=== PATIENT | male | born 1945 | race Caucasian/White ===

== ENCOUNTER 2023-02-25 07:11 | Outpatient (RCR) | payer OTHER, SELFPAY ==
--- NOTE | 2022-12-09 14:32 | CR1_ITS ---
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
--- NOTE | 2023-01-09 12:35 | CR1_ITS ---
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
--- NOTE | 2023-02-06 10:41 | CR1_ITS ---
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
== END 2023-02-27 16:59 | disposition home or self-care (01) ==
LOC: CR 07:11
DX: J44.9 Chronic obstructive pulmonary disease, unspecified (principal)
CPT/HCPCS: 94625

== ENCOUNTER 2023-05-25 07:08 | Outpatient (RCR) | payer OTHER, SELFPAY ==
--- NOTE | 2023-03-09 13:49 | CR1_ITS ---
The 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
--- NOTE | 2023-04-07 12:52 | CR1_ITS ---
The [facility] Test Date: 2023-04-07 Pat Name: ROBERT BASSETT Department: Room: - Gender: Male Jackaroo: : 1945 Requested By: YANDY OQUENDO Order Number: [id number] Cliff MD: YANDY OQUENDO Interpretive Statements Session Date: Electronically Signed On 04-09-2023 6:58:44 EST by YANDY OQUENDO
--- NOTE | 2023-05-06 12:59 | CR1_ITS ---
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
--- NOTE | 2023-05-25 14:26 | PC.NURSE ---
Called to reach out to patient due to his approved time nearing the end and no recent visits from patient on record. Patient wishes to be discharged at this time and will reach out to his provider for a new order when he feels physically well enough to return to rehab.
== END 2023-05-26 11:38 | disposition home or self-care (01) ==
LOC: CR 07:08
DX: J44.9 Chronic obstructive pulmonary disease, unspecified (principal)

== ENCOUNTER 2023-10-13 17:49 | Emergency (ER) | payer OTHER, SELFPAY ==
[2023-10-13] VITALS (7 sets, daily range): BP systolic 102–134; BP diastolic 49–64; PULSE 79–88; TEMP 36.9; O2SAT 91–96; BMI 25.1
--- OUTSIDE RECORDS SUMMARY | 2023-10-13 18:00 | XMS_ITS | CCD ---
Author Organization [facility] Care Team Providers Care Erisa Attorney Name Role Phone DANIEL, DR TYSON Primary Care Unavailable REQUEST, NONE LISTED Attending Unavaila ble REQUEST, NONE LISTED Admitting Unavaila ble REQUEST, NONE LISTED Consulting Unavaila ble MISC, DR TYSON Primary Care Unavailable REQUEST, NONE LISTED Attending Unavaila ble REQUEST, NONE LISTED Admitting Unavaila ble REQUEST, DR PIERSON LISTED Consulting Unavaila ble MISC, DR TYSON Admitting Unavailable MISC, DR TYSON Primary Care Unavailable MISC, DR TYSON Consulting Unavailable MISC, DR TYSON Attending Unavailable Gregoria Truong Primary Care Physician GREGORIA TRUONG Attending Unavailable GREGORIA FISHER Attending Unavailable GREGORIA FISHER Attending Unavailable MARTINDov Attending Unavailable MARTIN, Dov Duron Attending Unavailable MARTINDov Attending Unavailable MARTINDov Attending Unavailable Allergies Allergy Classification Reported Allergen(s) Allergy Type Date of Onset Reaction(s) Facility Adrenergic Antagonists (1 source) tamsulosin; Translations: [tamsulosin] Drug Allergy Low blood pressure (disorder) [facility] (8 sources) tamsulosin; Translations: [tamsulosin] Drug Allergy Low blood pressure (disorder) [facility] Medications Current Medications Medication Drug Class(es) Dates Sig (Normalized) Sig (Original) acetaminophen 325 mg oral tablet (8 sources) Start: 11-22-2020 take 1 tablet by mouth four times daily as needed for pain acetaminophen 325 mg Tab 325 mg = 1 tab(s), Oral, QID, PRN as needed for pain, Refills(s) 0 Start Date: 11/22/20 Status: Ordered Albuterol (Eqv-ProAir HFA) 90 mcg/inh inhalation aerosol (7 sources) Start: 11-22-2020 take 2 puff(s) by inhalation four times daily as needed for wheezing Albuterol (Eqv-ProAir HFA) 90 mcg/inh inhalation aerosol 2 puff(s), Inhalation, QID as needed for wheezing, Refill(s) 0 Start Date: 11/22/20 Status: Ordered atorvastatin 40 mg oral tablet (8 sources) HMG-CoA Reductase Inhibitor Start: 07-09-2015 take 40 mg by mouth once daily at bedtime atorvastatin 40 mg, Oral, Once a day (at bedtime), Refills(s) 0, High cholesterol Start Date: 07/09/15 Status: Ordered Breztri Aerosphere inhalation aerosol (1 source) Start: 08-31-2023 take 1 puff(s) by inhalation twice daily Breztri Aerosphere inhalation aerosol puff(s), Inhalation, BID, Refill(s) 0 Start Date: 08/31/23 Status: Ordered busPIRone hydrochloride 10 mg oral tablet (8 sources) Start: 11-22-2020 take 2 tablets by mouth twice daily at mealtime for anxiety busPIRone 10 mg Tab 20 mg = 2 tab(s), Oral, BID, with food for anxiety, Refills(s) 0 Start Date: 11/22/20 Status: Ordered capsaicin 0.25 mg/ml topical cream (7 sources) Start: 11-22-2020 capsaicin topical 0.025% cream See Instructions, Refill(s) 0, apply 3 times a day to feet Start Date: 11/22/20 Status: Ordered Centrum Silver (8 sources) Start: 07-09-2015 Centrum Silver Oral, Daily, Refill(s) 0, Prophylaxis Start Date: 07/09/15 Status: Ordered cholecalciferol 0.025 mg oral tablet (8 sources) Vitamin D Start: 11-22-2020 take 1 tablet by mouth once daily cholecalciferol 1000 intl units oral tablet 75 mcg = 3 tab(s), Oral, Daily Start Date: 11/22/20 Status: Ordered Start: 11-22-2020 take 1 tablet by dorys th once daily cholecalciferol 1000 intl units oral tablet 75 mcg = 3 tab(s), Oral, Daily Start Date: 11/22/20 Status: Ordered docusate sodium 100 mg oral capsule (7 sources) Start: 11-26-2020 take 1 capsule by mouth twice daily docusate sodium 100 mg Cap 100 mg = 1 cap(s), Oral, BID, Refills(s) 0 Start Date: 11/26/20 Status: Ordered finasteride 5 mg oral tablet (8 sources) 5-alpha Reductase Inhibitor Start: 03-22-2021 take 1 mg by mouth once daily finasteride 5 mg Tab mg tab(s), Oral, Daily, Refills(s) 0 Start Date: 03/22/21 Status: Ordered gabapentin 600 mg oral tablet (7 sources) Anti-epileptic Agent Start: 07-09-2015 take 600 mg by mouth three times daily gabapentin 600 mg, Oral, TID, Refills(s) 0, Pain Start Date: 07/09/15 Status: Ordered guaiFENesin 400 mg oral tablet (8 sources) Start: 11-22-2020 take 1 tablet by mouth every four hours as needed for cough guaifenesin 400 mg oral tablet 400 mg = 1 tab(s), Oral, q4hr, PRN as needed for cough, Refills(s) 0 Start Date: 11/22/20 Status: Ordered levETIRAcetam 500 mg oral tablet (8 sources) Start: 11-22-2020 take 1 tablet by mouth once daily levetiracetam 500 mg Tab 500 mg = 1 tab(s), Oral, Daily, Refills(s) 0 Start Date: 11/22/20 Status: Ordered levoFLOXacin 500 mg oral tablet (1 source) Quinolone Antimicrobial Start: 07-22-2023 take 1 tablet by mouth once daily Levaquin 500 mg Tab 500 mg = 1 tab(s), Oral, Daily, # 30 tab(s), Refills(s) 0, Pharmacy: [facility]/pharmacy #[id number], 179, cm, 07/22/23 14:27:00 EDT, Height/Length Dosing, 78.3, kg, 07/22/23 14:27:00 EDT, Weight Dosing Start Date: 07/22/23 Status: Ordered Lidocaine (8 sources) Antiarrhythmic, Amide Local Anesthetic Start: 11-26-2020 lidocaine 5% patch TransDermal, Daily, Refill(s) 0 Start Date: 11/26/20 Status: Ordered melatonin 3 mg oral tablet (8 sources) Start: 11-22-2020 take 2 tablets by mouth once daily at bedtime as needed melatonin 3 mg Tab 6 mg = 2 tab(s), Oral, Once a day (at bedtime), PRN for insomnia, # 60 tab(s), Refills(s) 0 Start Date: 11/22/20 Status: Ordered methocarbamol 500 mg oral tablet (7 sources) Muscle Relaxant Start: 11-26-2020 methocarbamol 500 mg Tab 500 mg = 1 tab(s), Oral, q6hrFT, Refills(s) 0 Start Date: 11/26/20 Status: Ordered mometasone furoate 0.2 MG/ACTUAT Metered Dose Inhaler (7 sources) Corticosteroid Start: 03-22-2021 take 1 ug by inhalation twice daily mometasone 200 mcg/inh inhalation aerosol mcg, Inhalation, BID, Refills(s) 0 Start Date: 03/22/21 Status: Ordered montelukast 10 mg oral tablet (8 sources) Leukotriene Receptor Antagonist Start: 03-22-2021 take 1 mg by mouth once daily montelukast 10 mg Tab mg tab(s), Oral, Daily, Refills(s) 0 Start Date: 03/22/21 Status: Ordered mupirocin 0.02 mg/mg topical ointment (7 sources) RNA Synthetase Inhibitor Antibacterial Start: 11-22-2020 mupirocin Top 2% Oint See Instructions, Refill(s) 0, apply a thin film to leg scabs twice a day Start Date: 11/22/20 Status: Ordered primidone 50 mg oral tablet (7 sources) Anti-epileptic Agent Start: 11-22-2020 take 2 tablets by mouth once daily primidone 50 mg Tab 100 mg = 2 tab(s), Oral, Daily, Refills(s) 0 Start Date: 11/22/20 Status: Ordered sertraline 200 mg oral tablet (8 sources) Serotonin Reuptake Inhibitor Start: 07-09-2015 take 200 mg by mouth once daily sertraline 200 mg, Oral, Daily, Refills(s) 0, Depression Start Date: 07/09/15 Status: Ordered terazosin 1 mg oral capsule (1 source) alpha-Adrenergic Nacho Start: 03-22-2021 take 1 capsule by mouth once daily at bedtime terazosin 1 mg Cap mg cap(s), Oral, Once a day (at bedtime), Refills(s) 0 Start Date: 03/22/21 Status: Ordered urea 200 mg/ml topical cream (7 sources) Start: 11-22-2020 urea topical 20% cream See Instructions, Refill(s) 0, apply once daily to calloused areas on feet Start Date: 11/22/20 Status: Ordered vitamin B12 (8 sources) Vitamin B12 Start: 11-22-2020 take 1 tablet by mouth once daily cyanocobalamin 1000 mcg oral tablet 1,000 mcg = 1 tab(s), Oral, Daily, Refills(s) 0 Start Date: 11/22/20 Status: Ordered Start: 11-22-2020 take 1 tablet by dorys th once daily cyanocobalamin 1000 mcg oral tablet 1,000 mcg = 1 tab(s), Oral, Daily, Refills(s) 0 Start Date: 11/22/20 Status: Ordered Problems Problem Classification Problem Date Documented Date Episodic/Chronic Abdominal pain (2 sources) Inguinal pain 07-22-2023 Episodic Anxiety disorders (8 sources) Posttraumatic stress disorder 03-22-2021 Chronic Chronic obstructive pulmonary disease and bronchiectasis (9 sources) Chronic obstructive pulmonary disease, unspecified; Translations: [Pulmonary emphysema] Onset: 12-24-2020 03-22-2021 Chronic Genitourinary symptoms and ill-defined conditions (14 sources) Retention of urine; Translations: [Retention of urine, unspecified] Onset: 08-19-2021 Episodic Hyperplasia of prostate (14 sources) Benign prostatic hypertrophy with outflow obstruction; Translations: [Benign prostatic hyperplasia with lower urinary tract symptoms] Onset: 08-19-2021 Chronic Inflammatory conditions of male genital organs (10 sources) Prostatitis; Translations: [Inflammatory disease of prostate, unspecified] Onset: 08-19-2021 Episodic Other circulatory disease (4 sources) Hypotension, unspecified; Translations: [HYPOTENSION UNSPECIFIED] Onset: 12-19-2020 Episodic Other male genital disorders (1 source) H/O: male genital disorder; Translations: [Personal history of other diseases of male genital organs] Onset: 08-31-2023 Episodic Other male genital disorders (1 source) History of prostatitis 08-31-2023 Episodic Unclassified (8 sources) Finding of sensation of bladder 03-22-2021 Results Test Name Value Interpretation Reference Range Facil ity Ambulatory Visit Summaryon 0 08-31-2023 Ambulatory Visit Summary Ambulatory Visit Summary ROBERT TIM :1945 Visit Date:08/31/2023 Ambulatory Visit Instructions Your Diagnosis BPH with urinary obstruction History of prostatitis Urinary retention Your Care Team Attending Physician - Dov MARTIN MD Primary Care Physician - Gregoria Truong DO This Is Your Medications List finasteride (finasteride 5 mg Tab) Contact prescribing physician if questions or concerns acetaminophen (acetaminophen 325 mg Tab) atorvastatin budesonide/formoterol /glycopyrrolate (Breztri Aerosphere inhalation aerosol) busPIRone (busPIRone 10 mg Tab) cholecalciferol (cholecalciferol 1000 intl units oral tablet) cyanocobalamin (cyanocobalamin 1000 mcg oral tablet) guaifenesin (guaifenesin 400 mg oral tablet) levetiracetam (levetiracetam 500 mg Tab) lidocaine topical (lidocaine 5% patch) melatonin (melatonin 3 mg Tab) montelukast (montelukast 10 mg Tab) multivitamin with minerals (Centrum Silver) sertraline Procedures Performed Cataract, Colonoscopy, Procedure on back, Surgery. Discharge Vitals Temperature (Temporal Artery) 37 ?C Heart Rate (Peripheral) 62 Respiratory Rate 16 Blood Pressure 105/67 Height 179 cm Height 70 in Weight 75 kg Weight 165 lb BMI 23.41 What to do next Scheduled Follow-Up Appointments Thursday 1:45 PM EDT With: Dov MARTIN MD Where: [facility] Urology Office/Clinic Noteon 08-31-2023 Urology Office/Clinic Note Urology Office/Clinic Note Chief Complaint prostatitis, urinary retention HPI Staff F/u after prostatitis. Last seen in office 07/22/23 by ROMEO. Dx: prostatitis, BPH with obstruction, urinary retention. *Finasteride 5mg qd Given Levaquin 500mg qd x 30 days at prior OV. Pt is doing CIC 1x in the morning everyday Dysuria: no Incomplete bladder emptying: CIC 1x daily Hematuria: no Frequency: every couple of hours Urgency: yes Nocturia: every 2 hours Stream: weaker stream Leaking: yes Post void dripping: yes Wearing pads/ Depends: not regular just wears a brief when he is traveling Urge incontinence: no Stress incontinence: no Incontinence without Sensory Awareness: no Abdominal pain: no Flank pain: yes states it is muscular Sexual complaints: no History of Present Illness Tests reviewed: reviewed UA I have reviewed the previous health record information and history for this patient from JOHNATHON Peter. I have reviewed and verified the staff HPI to be accurate for this encounter. Review of Systems ROS - Provider Constitutional: denies weight loss, denies hot flashes. Eyes: denies eye problems. Gastrointestinal: denies nausea, denies vomiting. Cardiovascular: denies chest pain or angina. Integumentary: no dryness Musculoskeletal: denies musculoskeletal symptoms. ENMT: denies otolaryngeal symptoms. Respiratory: no shortness of breath. Heme/Lymph: denies easy bleeding tendency, denies easy bruising tendency. Psychiatric: no confusion, no anxiety. Genitourinary: See HPI. Physical Exam Vitals & Measurements T: 37 ?C(Temporal Artery) HR: 62(Peripheral) RR: 16 BP: 105/67 HT: 70 in HT: 179 cm WT: 75 kg WT: 165 lb BMI: 23.41 General Appearance: alert, no distress, well nourished, well developed male. Assessment/Plan 1. BPH with urinary obstruction (N40.1: Benign prostatic hyperplasia with lower urinary tract symptoms) Neurology consult 05/16/21 - Failed Flomax due to fainting and Terazosin due to hypotension in the past. Not to restart either alpha nacho. Taking Finasteride 5 mg qd. When pt voids on own, does not feel empty, has to void shortly after already voiding. Not very bothersome. -Cont Finasteride wo changes 2. History of prostatitis (Z87.438: Personal history of other diseases of male genital organs) Given Levaquin 500mg qd x 30 days at prior OV 07/22/23. Finished this abx course. No sample provided for UA today. Denies any pain or discomfort with urination. 3. Urinary retention (R33.9: Retention of urine, unspecified) PVR (cc): 07/22/23 - 94 Continues CIC once daily. Highest output volume 11oz. Recommended pt try CIC qod. States he will try this. -CIC qod. Record volumes week prior to appt. Follow-up With When Contact Information JOHNATHAN ALEGRIA, Dov Duron, URL [facility] [address], [place] [address] [phone] Additional Instructions: 3 mos Patient Education Benign Prostatic Hyperplasia I, Mai Sheppard, personally scribed for Dr. Martin on 08/31/2023 14:29:37. . Documentation recorded by the scribe, Mai Sheppard, accurately reflects the services(s) I performed and decisions made by me. Authenticated by Dr. Martin on 08/31/2023 14:31:41. 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 Medications acetaminophen 325 mg Tab, 325 mg= 1 tab(s), Oral, QID, PRN atorvastatin, 40 mg, Oral, Once a day (at bedtime) Breztri Aerosphere inhalation aerosol, Inhalation, BID busPIRone 10 mg Tab, 20 mg= 2 tab(s), Oral, BID Centrum Silver, Oral, Daily cholecalciferol 1000 intl units oral tablet, 75 mcg= 3 tab(s), Oral, Daily cyanocobalamin 1000 mcg oral tablet, 1000 mcg= 1 tab(s), Oral, Daily finasteride 5 mg Tab, Oral, Daily guaifenesin 400 mg oral tablet, 400 mg= 1 tab(s), Oral, q4hr, PRN levetiracetam 500 mg Tab, 500 mg= 1 tab(s), Oral, Daily lidocaine 5% patch, TransDermal, Daily melatonin 3 mg Tab, 6 mg= 2 tab(s), Oral, Once a day (at bedtime), PRN montelukast 10 mg Tab, Oral, Daily sertraline, 200 mg, Oral, Daily Allergies Flomax (Hypotension) Social History Alcohol - Denies Alcohol Use, 11/22/2020 Substance Abuse - Denies Substance Abuse, 11/22/2020 Tobacco - Denies Tobacco Use, 11/22/2020 Former smoker, quit more than 30 days ago Tobacco Use:. Never Smokeless Tobacco Use:. Household tobacco concerns: No. Yes, 08/31/2023 Family History Hypertension: Mother. Liver cancer: Father. Metastatic cancer: Father. Immunizations Vaccine Date Status influenza virus vaccine, inactivated 12/19/2021 Recorded SARS-CoV-2 (COVID-19) [id number] 12/19/2021 Recorde (more content not included)... Normal [facility] Comment on above: Result Comment: Elec tronically Signed By: Dov MARTIN MD\.br\Date and Time Signed: 08/31/23 14:31 EDT\.br\Electronically Co-Signed By: Mai Sheppard\.br\Date and Time Co-Signed: 08/31/23 14:30 EDT Ambulatory Visit Summaryon 0 07-22-2023 Ambulatory Visit Summary MEETA ROBERT :1945 Visit Date:07/22/2023 Ambulatory Visit Instructions Your Diagnosis Prostatitis BPH with urinary obstruction Urinary retention Your Care Team Attending Physician - GREGORIA FISHER PA-C Primary Care Physician - Gregoria Truong DO This Is Your Medications List levofloxacin (Levaquin 500 mg Tab) Contact prescribing physician if questions or concerns acetaminophen (acetaminophen 325 mg Tab) albuterol (Albuterol (Eqv-ProAir HFA) 90 mcg/inh inhalation aerosol) atorvastatin busPIRone (busPIRone 10 mg Tab) capsaicin topical (capsaicin topical 0.025% cream) cholecalciferol (cholecalciferol 1000 intl units oral tablet) cyanocobalamin (cyanocobalamin 1000 mcg oral tablet) docusate (docusate sodium 100 mg Cap) finasteride (finasteride 5 mg Tab) gabapentin guaifenesin (guaifenesin 400 mg oral tablet) levetiracetam (levetiracetam 500 mg Tab) lidocaine topical (lidocaine 5% patch) melatonin (melatonin 3 mg Tab) methocarbamol (methocarbamol 500 mg Tab) mometasone (mometasone 200 mcg/inh inhalation aerosol) montelukast (montelukast 10 mg Tab) multivitamin with minerals (Centrum Silver) mupirocin topical (mupirocin Top 2% Oint) primidone (primidone 50 mg Tab) sertraline urea topical (urea topical 20% cream) Procedures Performed Cataract, Colonoscopy, Procedure on back, Surgery. Discharge Vitals Temperature (Temporal Artery) 36.6 ?C Heart Rate (Peripheral) 75 Blood Pressure 110/61 Height 179 cm Height 70 in Weight 78.3 kg Weight 172.26 lb BMI 24.44 What to do next Scheduled Follow-Up Appointments Thursday 1:15 PM EDT With: JOHNATHAN ALEGRIA, Dov Duron Where: [facility] Ambulatory Visit Summary ROBERT TIM :1945 Visit Date:07/22/2023 Ambulatory Visit Instructions Your Diagnosis Prostatitis BPH with urinary obstruction Urinary retention Your Care Team Attending Physician - GREGORIA FISHER PA-C Primary Care Physician - Gregoria Truong DO This Is Your Medications List Contact prescribing physician if questions or concerns acetaminophen (acetaminophen 325 mg Tab) albuterol (Albuterol (Eqv-ProAir HFA) 90 mcg/inh inhalation aerosol) atorvastatin busPIRone (busPIRone 10 mg Tab) capsaicin topical (capsaicin topical 0.025% cream) cholecalciferol (cholecalciferol 1000 intl units oral tablet) cyanocobalamin (cyanocobalamin 1000 mcg oral tablet) docusate (docusate sodium 100 mg Cap) finasteride (finasteride 5 mg Tab) gabapentin guaifenesin (guaifenesin 400 mg oral tablet) levetiracetam (levetiracetam 500 mg Tab) lidocaine topical (lidocaine 5% patch) melatonin (melatonin 3 mg Tab) methocarbamol (methocarbamol 500 mg Tab) mometasone (mometasone 200 mcg/inh inhalation aerosol) montelukast (montelukast 10 mg Tab) multivitamin with minerals (Centrum Silver) mupirocin topical (mupirocin Top 2% Oint) primidone (primidone 50 mg Tab) sertraline urea topical (urea topical 20% cream) Procedures Performed Cataract, Colonoscopy, Procedure on back, Surgery. Discharge Vitals Temperature (Temporal Artery) 36.6 ?C Heart Rate (Peripheral) 75 Blood Pressure 110/61 Height 179 cm Height 70 in Weight 78.3 kg Weight 172.26 lb BMI 24.44 What to do next Scheduled Follow-Up Appointments Thursday 1:15 PM EDT With: JOHNATHAN ALEGRIA, Dov Duron Where: [facility] Alexys Normal [facility] Patient Educationon 07-22-19 Patient Education Infectious Disease Prostatitis Prostatitis is swelling or inflammation of the prostate gland, also called the prostate. This gland is about 1.5 inches wide and 1 inch high, and it is involved in making semen. The prostate is located below a man's bladder, in front of the rectum. There are four types of prostatitis: ? Chronic prostatitis (CP), also called chronic pelvic pain syndrome (CPPS). This is the most common type of prostatitis. It is associated with increased muscle tone in the area between the hip bones (pelvic area), around the prostate. This type is also known as a pelvic floor disorder. ? Chronic bacterial prostatitis. This type usually results from an acute bacterial infection in the prostate gland that keeps coming back or has not been treated properly. The symptoms are less severe than those caused by acute bacterial prostatitis, which lasts a shorter time. ? Asymptomatic inflammatory prostatitis. This type does not have symptoms and does not need treatment. This is diagnosed when tests are done for other disorders of the urinary tract or reproductive tract. ? Acute bacterial prostatitis. This type starts quickly and results from an acute bacterial infection in the prostate gland. It is usually associated with a bladder infection, high fever, and chills. This is the least common type of prostatitis. What are the causes? Bacterial prostatitis is caused by an infection from bacteria. Chronic nonbacterial prostatitis may be caused by: ? Factors related to the nervous system. This system includes thebrain, spinal cord, and nerves. ? An autoimmune response. This happens when the body's disease-fighting system attacks healthy tissue in the body by mistake. ? Psychological factors. These have to do with how the mind works. The causes of the other types of prostatitis are usually not known. What are the signs or symptoms? Symptoms of this condition depend on the type of prostatitis you have. Acute bacterial prostatitis Symptoms may include: ? Pain or burning during urination. ? Frequent and sudden urges to urinate. ? Trouble starting to urinate. ? Fever. ? Chills. ? Pain in your muscles or joints, lower back, or lower abdomen. Other types of prostatitis Symptoms may include: ? Sudden urges to urinate, or urinating often. ? Trouble starting to urinate. ? Weak urine stream. ? Dribbling after urination. ? Discharge coming from the penis. ? Pain in the testicles, the penis, or the tip of the penis. ? Pain in the area in front of the rectum and below the scrotum (perineum). ? Pain when ejaculating. How is this diagnosed? This condition may be diagnosed based on: ? A physical and medical exam. ? A digital rectal exam. For this, the health care provider may use a finger to feel the prostate. ? A urine test to check for bacteria. ? A semen sample or blood tests. ? Ultrasound. ? Urodynamic tests to check how your body handles urine. ? Cystoscopy to look inside your bladder or inside the part of your body that drains urine from the bladder (urethra). How is this treated? Treatment for this condition depends on the type of prostatitis. Treatment may involve: ? Medicines to relieve pain or inflammation, or to help relax your muscles. ? Physical therapy. ? Heat therapy. ? Biofeedback. These techniques help you control certain body functions. ? Relaxation exercises. ? Antibiotic medicine, if your condition is caused by bacteria. ? Sitz baths. These warm water baths help to relax your pelvic floor muscles, which helps to relieve pressure on the prostate. Follow these instructions at home: Medicines ? Take [id number] and prescription medicines only as told by your health care provider. ? If you were prescribed an antibiotic medicine, take it as told by your health care provider. Do not stop using the antibiotic even if you start to feel better. Managing pain and swelling ? Take sitz baths as directed by your health care provider. For a sitz bath, sit in warm water that is deep enough to cover your hips and buttocks. ? If directed, apply heat to the affected area as often as told by your health care provider. Use the heat source that your health care provider recommends, such as a moist heat pack or a heating pad. ? Place a towel between your skin and the heat source. ? Leave the heat on for 20?30 minutes. ? Remove the heat if your skin turns bright red. This is especially important if you are unable to feel pain, heat, or cold. You may have a greater risk of getting burned. General instructions ? Do exercises as told by your health care provider, if you were prescribed physical therapy, biofeedback, or relaxation exercises. ? Keep all follow-up visits as told by your health care provider. This is important. Where to find more information ? National [place] of [employer] and [employer]estive and Kidney Diseases: (more content not included)... Normal [facility] Urology Office/Clinic Noteon 07-22-2023 Urology Office/Clinic Note Chief Complaint Negative UA 07/16/23; not emptying bladder HPI Staff PRW pt Last seen in our office 12/15/22 DX: BPH & Urinary Retention *[facility] CIC qd at time of last encounter Pt stopped in our office 07/16/23 c/o groin pain. Suspected UTI. UA completely negative at that time. PVR: 94 ml Dysuria: denies Incomplete bladder emptying: yes, waits a min or two he goes again Hematuria: denies Frequency: denies Urgency: denies Nocturia: 2 x a night Stream: sometimes it's weak, and sometimes it's strong Leaking: yes Post void dripping: yes Wearing pads/ Depends: denies; unless he goes somewhere that he won't have a restroom available quick enough Urge incontinence: denies Stress incontinence: denies Incontinence without Sensory Awareness: denies Abdominal pain: discomfort; in groin area into the lower abdominal, bilateral but mostly on the the left Flank pain: denies Sexual complaints: _ History of Present Illness staff HPI reviewed and agree. Review of Systems PHQ Score Initial Depression Screen Score: 2 SCORE no fever, chills, malaise, myalgia. no rash/lesions. no chest pain, palpitations, or SOB. no abdominal pain, nausea, vomiting. no unilateral calf swelling, redness, pain Physical Exam Vitals & Measurements T: 36.6 ?C(Temporal Artery) HR: 75(Peripheral) BP: 110/61 HT: 70 in HT: 179 cm WT: 78.3 kg WT: 172.26 lb BMI: 24.44 General: nontoxic, NAD Mouth: moist mucosa Lungs: normal respiratory effort Cardio: regular rate, good distal perfusion Abdomen: nondistended, no suprapubic distention or tenderness, no CVA tenderness Neurologic: Grossly normal Skin: No rashes or suspicious lesions Assessment/Plan PRW pt. 1. Prostatitis (N41.9: Inflammatory disease of prostate, unspecified) Reports of pain/pressure/discomf ort under his scrotum that radiates into the testicles, bladder, and up into his low abd. Started a few weeks ago. Feels constricted. Pt stopped in our office 07/16/23 c/o the same. UA was neg at that time. Pt unable to give a sample today. Does have hx prostatitis and says this feels similar. No dysuria or burning. No urgency/frequency. No constipation. No pain with BMs. Denies injury to the area. The patient likely has prostatitis. He was advised about the different possible causes of bacterial and non-bacterial prostatitis. He needs to complete the course of prescribed antibiotics. He understands that the symptoms improve if he decreases his exercise and activity level. Anti-inflammatory medicines can also be helpful, as well as frequent ejaculations. Hot baths are also helpful in easing the discomfort. -Start Levaquin 500mg qd x 30 days (Cr 0.8 11/2022). Will avoid NSAIDs due to risk w age. Pt cannot tolerate alpha blockers. -Keep regular 6 mo follow up in August with PRW unless sx don't resolve 2. BPH with urinary obstruction (N40.1: Benign prostatic hyperplasia with lower urinary tract symptoms) Neurology consult 05/16/21 - Failed Flomax due to fainting and Terazosin due to hypotension in the past. Not to restart either alpha nacho. Taking Finasteride 5 mg QD. -Cont Finasteride wo [facility] 3. Urinary retention (R33.9: Retention of urine, unspecified) PVR (cc): 07/22/23 - 94 No difficulty passing cath w recent pain reported in #1. Continues CIC once daily. Follow-up With When Contact Information NATALIA DANIEL, GREGORIA Sahni, URL [address] [place] [address] Additional Instructions: Keep August appt Patient Education Prostatitis Documentation recorded by the jeffrey Cortes accurately reflects the services(s) I performed and decisions made by me. Authenticated by Gregoria Fisher PA-C on 07/22/2023 15:14:10. I, Kalee Cortes, personally scribed for Jacinta Fisher PA-C on 07/22/2023 14:52:22. . 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 Medications acetaminophen 325 mg Tab, 325 mg= 1 tab(s), Oral, QID, PRN Albuterol (Eqv-ProAir HFA) 90 mcg/inh inhalation aerosol, 2 puff(s), Inhalation, QID, PRN atorvastatin, 40 mg, Oral, Once a day (at bedtime) busPIRone 10 mg Tab, 20 mg= 2 tab(s), Oral, BID capsaicin topical 0.025% cream, See Instructions Centrum Silver, Oral, Daily cholecalciferol 1000 intl units oral tablet, 75 mcg= 3 tab(s), Oral, Daily cyanocobalamin 1000 mcg oral tablet, 1000 mcg= 1 tab(s), Oral, Daily docusate sodium 100 mg Cap, 100 mg= 1 cap(s), Oral, BID finasteride 5 mg Tab, Oral, Daily gabapentin, 600 mg, Oral, TID guaifenesin 400 mg oral tablet, 400 mg= 1 tab(s), Oral, q4hr, PRN levetiracet (more content not included)... Normal [facility] Comment on above: Result Comment: Elec tronically Signed By: GREGORIA FISHER PA-C.br\Date and Time Signed: 07/22/23 15:14 EDT\.br\Electronically Co-Signed By: Kalee Cortesbr\Date and Time Co-Signed: 07/22/23 14:52 EDT Physician Orderon 07-16-2023 Physician Order [id number] .[id number] Normal [facility] Retail - Clinical Noteon Retail - Clinical Note [id number] .[id number] Normal [facility] Patient Educationon 12-16-19 Patient Education Urology Clean Intermittent Catheterization, Male Clean intermittent catheterization (CIC) is a procedure to remove urine from the bladder by placing a small, flexible tube (catheter) into the bladder though the urethra. The urethra is a tube in the body that carries urine from the bladder out of the body. CIC may be done when: ? You cannot completely empty your bladder on your own. This may be due to a blockage in the bladder or urethra. ? Your bladder leaks urine. This may happen when the muscles or nerves near the bladder are not working normally, so the bladder overflows. Your health care provider will show you how to perform CIC and will help you to become comfortable performing this procedure at home. Your health care provider will also help you to get the home care supplies that are needed for this procedure. Supplies needed: ? Germ-free (sterile), water-based lubricant. ? A container for urine collection. You may also use the toilet to dispose of urine from the catheter. ? A catheter. Your health care provider will determine the best size for you. ? Use this catheter size: ? Clean gloves. ? Soap and water. ? Towel. How to perform this procedure: Most people need CIC at least 4 times per day to adequately empty the bladder. Your health care provider will tell you how often you should perform CIC. ? Number of times per day to perform CIC: To perform CIC, follow these steps: 1. Wash your hands with soap and water. If soap and water are not available, use hand town manager. 2. Clean your penis with soap and water. Dry the tip of your penis completely. 3. Prepare the supplies that you will use during the procedure. Open the catheter package and lubricant. 4. Get in a comfortable position. Possible positions include: ? Sitting on a toilet, a chair, or the edge of a bed. ? Standing near a toilet. ? Lying down with your head raised on pillows and your knees pointing to the ceiling. You may wish to place a waterproof mat or pad under you. 5. If you are using a urine collection container, position it between your legs. 6. Urinate, if you are able. 7. Put on gloves. 8. Apply lubricant to about 2 inches (5 cm) of the tip of the catheter. 9. Set the catheter down on a clean, dry surface within reach. 10. Gently stretch your penis out from your body. Pull back any skin that covers the end of your penis (foreskin). Clean the end of your penis with medicated sterile swabs as told by your health care provider. 11. Hold your penis upward at a 45?60 degree angle. This helps to straighten the urethra. 12. Slowly insert the lubricated catheter straight into your urethra until urine flows freely. This is usually about 6?8 inches (15?20 cm). 13. When urine starts to flow freely, insert the catheter 1 inch (3 cm) more. Allow urine to drain into the toilet or the urine collection container. 14. When urine stops flowing, slowly remove the catheter. 15. Note the color, amount, and odor of the urine. 16. Measure your urine and note the amount, if told by your health care provider. 17. Discard the urine in the toilet. 18. Clean your penis using soap and water. 19. Move the foreskin back in place, if applicable. 20. If you are using a single-use catheter, discard the catheter and supplies. 21. Wash your hands with soap and water. 22. If you are using a reusable catheter, follow package instructions about how to clean the catheter after each use. How often should I perform this procedure? ? Do CIC to empty your bladder every 4?6 hours or as often as told by your health care provider. ? If you have symptoms of too much urine in your bladder (overdistension) and you are not able to urinate, perform CIC. Symptoms of overdistension may include: ? Restlessness. ? Sweating or chills. ? Headache. ? Flushed or pale skin. ? Bloated lower abdomen. What are the risks? Generally, this is a safe procedure, however problems may occur, including: ? Infection. ? Injury to the urethra. ? Irritation of the urethra. Follow these instructions at home General instructions ? Drink enough fluid to keep your urine pale yellow. ? Dispose of a multiple use catheter when it becomes dry, brittle, or cloudy. This usually happens after you use the catheter for 1 week. ? Avoid caffeine. Caffeine may make you need to urinate more frequently and more urgently. ? When traveling, bring extra supplies with you in case of delays. Keep supplies with you in a place that you can access easily. If traveling by plane: ? Make sure that the lubricant in your carry-on bag is less than 3.4 ounces (100 mL). ? Use a single-use catheter. It may be difficult to clean a reusable catheter in a small bathroom. ? Take [id number]-jgn-telyuow and prescription medicines only as told by your he (more content not included)... Normal [facility] Urology Office/Clinic Noteon 12-15-2022 Urology Office/Clinic Note Chief Complaint 4m w/ Voiding Diary HPI Staff 77 yo male here for 4 month f/u. Previous Dx: BPH with obstruction, urinary retention. Pt was to decrease CIC from bid to qd. [facility] Pt unable to provide urine specimen in our office today. Pt is down to 1x/day. Residual totals average 7-11oz daily. When pt goes to void, states he has troubles with his stream starting if he does not pass gas or have BM prior. When he does pass gas or have BM, no difficulties getting stream started, and stronger stream. History of Present Illness Tests reviewed: reviewed UA I have reviewed the previous health record information and history for this patient from . I have reviewed and verified the staff HPI to be accurate for this encounter. There have been no associated fever, chills, flank pain, or blood in the urine. Denies any urinary infections since last encounter. Review of Systems PHQ Score Initial Depression Screen Score: 0 ROS - Provider Constitutional: denies weight loss, denies hot flashes. Eyes: denies eye problems. Gastrointestinal: denies nausea, denies vomiting. Cardiovascular: denies chest pain or angina. Integumentary: no dryness Musculoskeletal: denies musculoskeletal symptoms. ENMT: denies otolaryngeal symptoms. Respiratory: no shortness of breath. Heme/Lymph: denies easy bleeding tendency, denies easy bruising tendency. Psychiatric: no confusion, no anxiety. Genitourinary: See HPI. Physical Exam Vitals & Measurements HR: 68(Peripheral) RR: 16 BP: 128/79 HT: 70 in HT: 179 cm WT: 79 kg WT: 173.8 lb BMI: 24.66 General Appearance: alert, no distress, well nourished, well developed male. Assessment/Plan 1. BPH with urinary obstruction (N40.1: Benign prostatic hyperplasia with lower urinary tract symptoms) Neurology consult 05/16/21 - Failed Flomax due to fainting and Terazosin due to hypotension in the past. Not to restart either alpha nacho. No sample provided for UA today. Taking Finasteride 5 mg QD. -Cont Finasteride wo changes. [facility] 2. Urinary retention (R33.9: Retention of urine, unspecified) Pt is down to 1x/day. Residual totals average 7-11oz daily. The time he does this varies on what time he goes to bed at night, always when he first wakes up for the day. Feels he empties, will void once with a strong stream and then a second time with a weaker stream. When pt goes to void, states he has troubles with his stream starting if he does not pass gas or have BM prior. When he does pass gas or have BM, no difficulties getting stream started, and stronger stream. Advised pt that the volume is normal for how often he CIC a day. Pt states he does not feel the need to CIC more often through the day.Pt states that he does have some leaking, knows it is b/c he waits too long to go to the bathroom. Advised pt to call our office if he gets and infection. Follow up in 6 mos. All questions/concerns were discussed. Pt to call the office if he encounters any issues prior. Pt acknowledges understanding. -Continue to CIC QD and record residual totals. Follow-up With When Contact Information JOHNATHAN ALEGRIA, DONAL Joshua In 6 months [facility] [address], [place] [address]- Additional Instructions: Patient Education Clean Intermittent Catheterization, Male I, Pam Navarro , personally scribed for Dr. Martin on 12/15/2022 14:57:55. . Documentation recorded by the scribe, Pam Navarro, accurately reflects the services(s) I performed and decisions made by me. 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 Medications acetaminophen 325 mg Tab, 325 mg= 1 tab(s), Oral, QID, PRN Albuterol (Eqv-ProAir HFA) 90 mcg/inh inhalation aerosol, 2 puff(s), Inhalation, QID, PRN atorvastatin, 40 mg, Oral, Once a day (at bedtime) busPIRone 10 mg Tab, 20 mg= 2 tab(s), Oral, BID capsaicin topical 0.025% cream, See Instructions Centrum Silver, Oral, Daily cholecalciferol 1000 intl units oral tablet, 75 mcg= 3 tab(s), Oral, Daily cyanocobalamin 1000 mcg oral tablet, 1000 mcg= 1 tab(s), Oral, Daily docusate sodium 100 mg Cap, 100 mg= 1 cap(s), Oral, BID finasteride 5 mg Tab, Oral, Daily gabapentin, 600 mg, Oral, TID guaifenesin 400 mg oral tablet, 400 mg= 1 tab(s), Oral, q4hr, PRN levetiracetam 500 mg Tab, 500 mg= 1 tab(s), Oral, Daily lidocaine 5% patch, TransDermal, Daily melatonin 3 mg Tab, 6 mg= 2 tab(s), Oral, Once a day (at bedtime), PRN methocarbamol 500 mg Tab, 500 mg= 1 tab(s), Oral, q6hrFT mometasone 200 mcg/inh inhalation aerosol, Inhalation, BID montelukast 10 mg Tab, Oral, Daily mupiro (more content not included)... Normal [facility] Comment on above: Result Comment: Elec tronically Signed By: Dov MARTIN MD\.br\Date and Time Signed: 12/15/22 15:00 EDT\.br\Electronically Co-Signed By: Pam Navarro\.br\Date and Time Co-Signed: 12/15/22 14:58 EDT CBC AUTO DIFFon 12-19-2020 BASO # 0.1 103/ul Normal 0.0-0.1 [facility] Comment on above: Performed By: #### C BC #### [facility] [address] [address] [address] Julio Cesar Grijalva Basophils/100 WBC (Bld) 0.7 % Normal 0.2-2.0 [facility] Comment on above: Performed By: #### C BC #### [facility] [address] [address] [address] Julio Cesar Grijalva EO # 0.3 103/ul Normal 0.0-0.7 [facility] Comment on above: Performed By: #### C BC #### [facility] [address] [address] [address] Julio Cesar Grijalva Eosinophils/100 WBC (Bld) 3.4 % Normal 0.9-7.0 [facility] Comment on above: Performed By: #### C BC #### [facility] [address] [address] [address] Julio Cesar Grijalva Erythrocyte distribution width (RBC) [Ratio] 13.2 % Normal 11.0-15.0 [facility] Comment on above: Performed By: #### C BC #### [facility] [address] [address] [address] Julio Cesar Grijalva Hematocrit (Bld) [Volume fraction] 38.2 % Critically low 42.0-54.0 [facility] Comment on above: Performed By: #### C BC #### [facility] [address] [place] [address] Dr. Julio Cesar Grijalva Hemoglobin (Bld) [Mass/Vol] 12.4 g/dL Critically low 14.0-18.0 [facility] Comment on above: Performed By: #### C BC #### [facility] [address] [place] [address] Dr. Julio Cesar Grijalva IG # 0.02 10e3/ul Normal 0.00-0.03 [facility] Comment on above: Performed By: #### C BC #### [facility] [address] [place] [address] Dr. Julio Cesar Grijalva IG % 0.3 % Normal 0.0-0.5 [facility] Comment on above: Performed By: #### C BC #### [facility] [address] [place] [address] Dr. Julio Cesar Grijalva LYMPH # 1.1 103/ul Critically low 1.2-3.8 [facility] Comment on above: Performed By: #### C BC #### [facility] [address] [place] [address] Dr. Julio Cesar Grijalva Lymphocytes/100 WBC (Bld) 14.5 % Critically low 20.5-60.0 [facility] Comment on above: Performed By: #### C BC #### [facility] [address] [place] [address] Dr. Julio Cesar Grijalva MANUAL DIFF REQ NO Normal [facility] Comment on above: Performed By: #### C BC #### [facility] [address] [place] [address] Dr. Julio Cesar Grijalva MCH (RBC) [Entitic mass] 30.5 pg Normal 25.9-34.0 [facility] Comment on above: Performed By: #### C BC #### [facility] [address] [place] [address] Dr. Julio Cesar Grijalva MCHC (RBC) [Mass/Vol] 32.5 g/dL Normal 29.9-35.2 [facility] Comment on above: Performed By: #### C BC #### [facility] [address] [place] [address] Dr. Julio Cesar Grijalva MCV (RBC) [Entitic vol] 93.9 fL Normal 80.0-94.0 [facility] Comment on above: Performed By: #### C BC #### [facility] [address] [place] [address] Dr. Julio Cesar Grijalva MONO # 0.5 103/ul Normal 0.3-0.8 [facility] Comment on above: Performed By: #### C BC #### [facility] [address] [place] [address] Dr. Julio Cesar Grijalva Monocytes/100 WBC (Bld) 5.9 % Normal 1.7-12.0 [facility] Comment on above: Performed By: #### C BC #### [facility] [address] [place] [address] Dr. Julio Cesar Grijalva NEUT # 5.8 103/ul Normal 1.4-6.5 [facility] Comment on above: Performed By: #### C BC #### [facility] [address] [place] [address] Dr. Julio Cesar Grijalva Neutrophils/100 WBC (Bld) 75.2 % Critically high 43.0-75.0 [facility] Comment on above: Performed By: #### C BC #### [facility] [address] [place] [address] Dr. Julio Cesar Grijalva Platelet mean volume (Bld) [Entitic vol] 10.7 fL Normal 9.5-13.5 [facility] Comment on above: Performed By: #### C BC #### [facility] [address] [place] [address] Dr. Julio Cesar Grijalva PLT 237 103/ul Normal 150-450 [facility] Comment on above: Performed By: #### C BC #### [facility] [address] [place] [address] Dr. Julio Cesar Grijalva RBC 4.07 106/ul Critically low 4.70-6.[address] [facility] Comment on above: Performed By: #### C BC #### [facility] [address] [place] [address] Dr. Julio Cesar Grijalva WBC 7.7 103/ul Normal 4.0-11.0 [facility] Comment on above: Performed By: #### C BC #### [facility] [address] [place] [address] Dr. Julio Cesar Grijalva PROF 14(COMP METB)on 021 Albumin [Mass/Vol] 2.9 g/dL Critically low 3.5-5.0 [facility] Comment on above: Performed By: #### C MP #### [facility] [address] [place] [address] Dr. Julio Cesar Grijalva Albumin/Globulin [Mass ratio] 0.8 {ratio} Normal [facility] Comment on above: Performed By: #### C MP #### [facility] [address] [place] [address] Dr. Julio Cesar Grijalva ALP [Catalytic activity/Vol] 121 U/L Normal 38-126 [facility] Comment on above: Performed By: #### C MP #### [facility] [address] [place] [address] Dr. Julio Cesar Grijalva ALT [Catalytic activity/Vol] 18 U/L Critically low 21-72 [facility] Comment on above: Performed By: #### C MP #### [facility] [address] [place] [address] Dr. Julio Cesar Grijalva Anion gap [Moles/Vol] 9.8 mmol/L Normal [facility] Comment on above: Performed By: #### C MP #### [facility] [address] [place] [address] Dr. Julio Cesar Grijalva AST [Catalytic activity/Vol] 17 U/L Normal 17-59 [facility] Comment on above: Performed By: #### C MP #### [facility] [address] [place] [address] Dr. Julio Cesar Grijalva Bilirubin [Mass/Vol] 0.4 mg/dL Normal 0.2-1.3 [facility] Comment on above: Performed By: #### C MP #### [facility] [address] [place] [address] Dr. Julio Cesar Grijalva Calcium [Mass/Vol] 8.5 mg/dL Normal 8.4-10.2 [facility] Comment on above: Performed By: #### C MP #### [facility] [address] [address] [address] Julio Cesar Grijalva Chloride [Moles/Vol] 102 mmol/L Normal 98-107 [facility] Comment on above: Performed By: #### C MP #### [facility] [address] [address] [address] Julio Cesar Grijalva CO2 [Moles/Vol] 29.0 mmol/L Normal 22.0-30.0 [facility] Comment on above: Performed By: #### C MP #### [facility] [address] [place] [address] Dr. Julio Cesar Grijalva Creatinine [Mass/Vol] 0.73 mg/dL Normal 0.66-1.25 [facility] Comment on above: Performed By: #### C MP #### [facility] [address] [place] [address] Dr. Julio Cesar Grijalva EGFR-AF IRAQI >60 Normal >=60 [facility] Comment on above: Performed By: #### C MP #### [facility] [address] [place] [address] Dr. Julio Cesar Grijalva EGFR-NON AF IRAQI >60 Normal >=60 [facility] Comment on above: Performed By: #### C MP #### [facility] [address] [place] [address] Dr. Julio Cesar Grijalva Globulin (S) [Mass/Vol] 3.6 g/dL Normal [facility] Comment on above: Performed By: #### C MP #### [facility] [address] [place] [address] Dr. Julio Cesar Grijalva Glucose [Mass/Vol] 122 mg/dL Critically high 74-106 [facility] Comment on above: Performed By: #### C MP #### [facility] [address] [place] [address] Dr. Julio Cesar Grijalva Potassium [Moles/Vol] 3.8 mmol/L Normal 3.4-5.0 [facility] Comment on above: Performed By: #### C MP #### [facility] [address] [address] [address] Julio Cesar Grijalva Protein [Mass/Vol] 6.5 g/dL Normal 6.1-8.2 [facility] Comment on above: Performed By: #### C MP #### [facility] [address] [address] [address] Julio Cesar Grijalva Sodium [Moles/Vol] 137 mmol/L Normal 137-145 [facility] [facility] Comment on above: Performed By: #### C MP #### [facility] [address] [address] [address] Julio Cesar Grijalva Urea nitrogen [Mass/Vol] 10.0 mg/dL Normal 9.0-20.0 [facility] Comment on above: Performed By: #### C MP #### [facility] [address] [address] [address] Julio Cesar Grijalva Urea nitrogen/Creatinine [Mass ratio] 13.7 mg/mg Normal [facility] Comment on above: Performed By: #### C MP #### [facility] [address] [address] [address] Julio Cesar Grijalva Vital Signs Date Time Vital Sign Value Performing Clinician Facility 08-31-2023 13:16-0400 Blood Pressure Location Dov MARTIN [facility] 08-31-2023 13:16-0400 Body temperature 98.6 [degF] Dov MARTIN [facility] 08-31-2023 13:16-0400 Diastolic blood pressure 67 mm[Hg] Dov MARTIN [facility] 08-31-2023 13:16-0400 Heart rate 62 /min Dov MARTIN [facility] 08-31-2023 13:16-0400 Respiratory rate 16 /min Dov MARTIN [facility] 08-31-2023 13:16-0400 Systolic blood pressure 105 mm[Hg] Dov MARTIN [facility] 07-22-2023 14:19-0400 Blood Pressure Location GREGORIA FISHER [facility] 07-22-2023 14:19-0400 Body temperature 97.88 [degF] GREGORIA ADAIRRY [facility] 07-22-2023 14:19-0400 Diastolic blood pressure 61 mm[Hg] GREGORIA NATALIA [facility] 07-22-2023 14:19-0400 Heart rate 75 /min GREGORIA NATALIA [facility] 07-22-2023 14:19-0400 Systolic blood pressure 110 mm[Hg] GREGORIA NATALIA [facility] 12-15-2022 14:00-0400 Blood Pressure Location Dov MARTIN [facility] 12-15-2022 14:00-0400 Diastolic blood pressure 79 mm[Hg] Dov MARTIN [facility] 12-15-2022 14:00-0400 Heart rate 68 /min Dov MARTIN [facility] 12-15-2022 14:00-0400 Respiratory rate 16 /min Dov MARTIN [facility] 12-15-2022 14:00-0400 Systolic blood pressure 128 mm[Hg] Dov MARTIN [facility] 08-18-2022 14:47-0400 Blood Pressure Location Dov MARTIN [facility] 08-18-2022 14:47-0400 Diastolic blood pressure 65 mm[Hg] Dov MARTIN [facility] 08-18-2022 14:47-0400 Heart rate 65 /min Dov MARTIN [facility] 08-18-2022 14:47-0400 Respiratory rate 16 /min Dov MARTIN [facility] 08-18-2022 14:47-0400 Systolic blood pressure 105 mm[Hg] Odv MARTIN [facility] 08-19-2021 12:06-0400 Blood Pressure Location Dov MARTIN [facility] 08-19-2021 12:06-0400 Diastolic blood pressure 66 mm[Hg] Dov MARTIN [facility] 08-19-2021 12:06-0400 Heart rate 78 /min Dov MARTIN [facility] 08-19-2021 12:06-0400 Respiratory rate 16 /min Dov MARTIN [facility] 08-19-2021 12:06-0400 Systolic blood pressure 111 mm[Hg] Dov MARTIN [facility] Encounters Encounter Date Encounter Type Care Provider Facility Start: 12-14-2023 ambulatory Dov Pyle ty: [facility] Start: 08-31-2023 End: 08-31-2023 ambulatory Dov MARTIN Facility:[facility] Start: 08-31-2023 End: 08-31-2023 Patient encounter procedure Dov MARTIN [facility] Start: 07-22-2023 End: 07-22-2023 ambulatory GREGORIA FISHER Facility:[facility] Start: 07-22-2023 End: 07-22-2023 Patient encounter procedure GREGORIA FISHER [facility] Start: 07-16-2023 End: 07-16-2023 ambulatory GREGORIA FISHER Facility:[facility] Start: 07-16-2023 End: 07-16-2023 Patient encounter procedure GREGORIA ADAIRRY [facility] Start: 06-29-2023 End: 06-29-2023 ambulatory Dov MARTIN Facility:[facility] Start: 06-29-2023 End: 06-29-2023 Patient encounter procedure Dov MARTIN [facility] [employer] Start: 03-12-2023 End: 03-12-2023 ambulatory GREGORIA SIBLEYSOJeaneth Not Available Start: 12-15-2022 End: 12-15-2022 ambulatory Dov MARTIN Facility:[facility] Start: 12-15-2022 End: 12-15-2022 Patient encounter procedure Dov MARTIN [facility] [employer] Start: 08-18-2022 End: 08-18-2022 Patient encounter procedure Dov MARTIN [facility] Start: 02-17-2022 End: 02-17-2022 Patient encounter procedure Dov MARTIN [facility] Start: 08-19-2021 End: 08-19-2021 Patient encounter procedure Dov MARTIN [facility] Start: 12-19-2020 End: 12-19-[address] DOCTOR SANCHEZ Facility:[facility] Start: 05-29-2020 End: 05-30-[address] DOCTOR SANCHEZ Facility:[facility] Start: 05-07-2020 End: 05-08-[address] DOCTOR SANCHEZ Facility:[facility] Procedures Date Procedure Procedure Detail Performing Clinician Cataract (disorder) Dov MARTIN Colonoscopy Dov MARTIN Procedure on back Dov MARIE Surgery (qualifier value) Johnathon MARTIN Comment on above: To back and neck Immunizations Immunization Date Immunization Notes Care Provider Vesta willoughby 12-19-2021 influenza virus vacc ine, unspecified formulation Dov MARTIN [facility] 12-19-2021 SARS-CoV-2 (COVID-19 ) [id number] Dov MARTIN [facility] 01-03-2021 influenza virus vacc ine, unspecified formulation Dov MARTIN [facility] 01-03-2021 SARS-CoV-2 (COVID-19 ) mRNA BNT-162b2 vax Dov MARTIN [facility] 05-29-2020 SARS-CoV-2 (COVID-19 ) mRNA BNT-162b2 vax Dov MARTIN [facility] 05-07-2020 SARS-CoV-2 (COVID-19 ) mRNA BNT-162b2 vax Dov Do It Original [facility] 12-15-2018 influenza virus vacc ine, unspecified formulation Dov Do It Original [facility] 11-19-2017 influenza virus vacc ine, unspecified formulation Dov Do It Original [facility] 07-09-2017 tetanus toxoid, redu pancho diphtheria toxoid, and acellular pertussis vaccine, adsorbed Dov MARTIN [facility] 11-11-2016 influenza virus vacc ine, unspecified formulation Dov MARTIN [facility] 11-30-2014 pneumococcal conjuga te vaccine, 13 valent Dov MARTIN [facility] 11-01-2012 pneumococcal polysaccharide vaccine, 23 valent Dov MARTIN [facility] Payers Date Payer Category Payer Unknown [id number] 1960 Medicare [id number] 1960 Self-pay 1945 Unknown [id number] 2.16.84 [id number] 1945 Unknown [id number] 2.16.84 [id number] 1944 Unknown [id number] 2.16.8 [id number] 1944 Unknown [id number] 2.16.8 [id number] 1944 Unknown [id number] 2.16.8 [id number] 1944 Unknown [id number] 2.16.8 [id number] 1944 Unknown [id number] 2.16.8 [id number] 1944 Unknown [id number] 2.16.8 [id number] Unknown [id number] 2.16.84 [id number] Unknown [id number] 2.16.84 [id number] Social History Date Type Detail Facility Start: 08-19-2021 End: 08-31-2023 Tobacco smoking status Ex-smoker (finding) [facility] Sex Assigned At Male [facility] Tobacco smoking status Never [facility] Functional Status Date Assessment Result Facility 08-31-2023 Functional Status N/A [facility] 07-22-2023 Functional Status N/A [facility] 12-15-2022 Functional Status N/A [facility] 08-18-2022 Functional Status N/A [facility] 02-17-2022 Functional Status N/A [facility] 08-19-2021 Functional Status N/A [facility] Clinical Notes 08-19-2021 to 08-31-2023 Note Date & Type Note Facility 08-31-2023 Hospital Discharge instructions Patient Education 08/31/2023 14:28:34 Benign Prostatic Hyperplasia Benign Prostatic Hyperplasia Benign prostatic hyperplasia (BPH) is an enlarged prostate gland that is caused by the normal aging process. The prostate may get bigger as a man gets older. The condition is not caused by cancer. The prostate is a walnut-sized gland that is involved in the production of semen. It is located in front of the rectum and below the bladder. The bladder stores urine. The urethra carries stored urine out of the body. An enlarged prostate can press on the urethra. This can make it harder to pass urine. The buildup of urine in the bladder can cause infection. Back pressure and infection may progress to bladder damage and kidney (renal) failure. What are the causes? This condition is part of the normal aging process. However, not all men develop problems from this condition. If the prostate enlarges away from the urethra, urine flow will not be blocked. If it enlarges toward the urethra and compresses it, there will be problems passing urine. What increases the risk? This condition is more likely to develop in men older than 50 years. What are the signs or symptoms? Symptoms of this condition include: Getting up often during the night to urinate. Needing to urinate frequently during the day. Difficulty starting urine flow. Decrease in size and strength of your urine stream. Leaking (dribbling) after urinating. Inability to pass urine. This needs immediate treatment. Inability to completely empty your bladder. Pain when you pass urine. This is more common if there is also an infection. Urinary tract infection (UTI). How is this diagnosed? This condition is diagnosed based on your medical history, a physical exam, and your symptoms. Tests will also be done, such as: A post-void bladder scan. This measures any amount of urine that may remain in your bladder after you finish urinating. A digital rectal exam. In a rectal exam, your health care provider checks your prostate by putting a lubricated, gloved finger into your rectum to feel the back of your prostate gland. This exam detects the size of your gland and any abnormal lumps or growths. An exam of your urine (urinalysis). A prostate specific antigen (PSA) screening. This is a blood test used to screen for prostate cancer. An ultrasound. This test uses sound waves to electronically produce a picture of your prostate gland. Your health care provider may refer you to a specialist in kidney and prostate diseases (urologist). How is this treated? Once symptoms begin, your health care provider will monitor your condition (active surveillance or watchful waiting). Treatment for this condition will depend on the severity of your condition. Treatment may include: Observation and yearly exams. This may be the only treatment needed if your condition and symptoms are mild. Medicines to relieve your symptoms, including: ?Medicines to shrink the prostate. ?Medicines to relax the muscle of the prostate. Surgery in severe cases. Surgery may include: ?Prostatectomy. In this procedure, the prostate tissue is removed completely through an open incision or with a laparoscope or robotics. ?Transurethral resection of the prostate (TURP). In this procedure, a tool is inserted through the opening at the tip of the penis (urethra). It is used to cut away tissue of the inner core of the prostate. The pieces are removed through the same opening of the penis. This removes the blockage. ?Transurethral incision (TUIP). In this procedure, small cuts are made in the prostate. This lessens the prostate's pressure on the urethra. ?Transurethral microwave thermotherapy (TUMT). This procedure uses microwaves to create heat. The heat destroys and removes a small amount of prostate tissue. ?Transurethral needle ablation (TUNA). This procedure uses radio frequencies to destroy and remove a small amount of prostate tissue. ?Interstitial laser coagulation (ILC). This procedure uses a laser to destroy and remove a small amount of prostate tissue. ?Transurethral electrovaporization (TUVP). This procedure uses electrodes to destroy and remove a small amount of prostate tissue. ?Prostatic urethral lift. This procedure inserts an implant to push the lobes of the prostate away from the urethra. Follow these instructions at home: Take igco-cdb-epmetlm and prescription medicines only as told by your health care provider. Monitor your symptoms for any changes. Contact your health care provider with any changes. Avoid drinking large amounts of liquid before going to bed or out in public. Avoid or reduce how much caffeine or alcohol you drink. Give yourself time when you urinate. Keep all follow-up visits. This is important. Contact a health care provider if: You have unexplained back pain. Your symptoms do not get better with treatment. You develop side effects from the medicine you are taking. Your urine becomes very dark or has a bad smell. Your lower abdomen becomes distended and you have trouble passing urine. Get help right away if: You have a fever or chills. You suddenly cannot urinate. You feel light-headed or very dizzy, or you faint. There are large amounts of blood or clots in your urine. Your urinary problems become hard to manage. You develop moderate to severe low back or flank pain. The flank is the side of your body between the ribs and the hip. These symptoms may be an emergency. Get help right away. Call 911. Do not wait to see if the symptoms will go away. Do not drive yourself to the hospital. Summary Benign prostatic hyperplasia (BPH) is an enlarged prostate that is caused by the normal aging process. It is not caused by cancer. An enlarged prostate can press on the urethra. This can make it hard to pass urine. This condition is more likely to develop in men older than 50 years. Get help right away if you suddenly cannot urinate. This information is not intended to replace advice given to you by your health care provider. Make sure you discuss any questions you have with your health care provider. Document Revised: 09/04/2021 Document Reviewed: 09/04/2021 [employer] Patient Education 2022 [place]. Follow Up Care 06/30/2023 10:20:51 With:JOHNATHAN ALEGRIA, Dov Duron, URL Address: [facility] [address] [place] [address] [phone] When: Unknown [facility] 08-31-2023 Note Patient Education Urology Benign Prostatic Hyperplasia Benign prostatic hyperplasia (BPH) is an enlarged prostate gland that is caused by the normal aging process. The prostate may get bigger as a man gets older. The condition is not caused by cancer. The prostate is a walnut-sized gland that is involved in the production of semen. It is located in front of the rectum and below the bladder. The bladder stores urine. The urethra carries stored urine out of the body. An enlarged prostate can press on the urethra. This can make it harder to pass urine. The buildup of urine in the bladder can cause infection. Back pressure and infection may progress to bladder damage and kidney (renal) failure. What are the causes? This condition is part of the normal aging process. However, not all men develop problems from this condition. If the prostate enlarges away from the urethra, urine flow will not be blocked. If it enlarges toward the urethra and compresses it, there will be problems passing urine. What increases the risk? This condition is more likely to develop in men older than 50 years. What are the signs or symptoms? Symptoms of this condition include: ? Getting up often during the night to urinate. ? Needing to urinate frequently during the day. ? Difficulty starting urine flow. ? Decrease in size and strength of your urine stream. ? Leaking (dribbling) after urinating. ? Inability to pass urine. This needs immediate treatment. ? Inability to completely empty your bladder. ? Pain when you pass urine. This is more common if there is also an infection. ? Urinary tract infection (UTI). How is this diagnosed? This condition is diagnosed based on your medical history, a physical exam, and your symptoms. Tests will also be done, such as: ? A post-void bladder scan. This measures any amount of urine that may remain in your bladder after you finish urinating. ? A digital rectal exam. In a rectal exam, your health care provider checks your prostate by putting a lubricated, gloved finger into your rectum to feel the back of your prostate gland. This exam detects the size of your gland and any abnormal lumps or growths. ? An exam of your urine (urinalysis). ? A prostate specific antigen (PSA) screening. This is a blood test used to screen for prostate cancer. ? An ultrasound. This test uses sound waves to electronically produce a picture of your prostate gland. Your health care provider may refer you to a specialist in kidney and prostate diseases (urologist). How is this treated? Once symptoms begin, your health care provider will monitor your condition (active surveillance or watchful waiting). Treatment for this condition will depend on the severity of your condition. Treatment may include: ? Observation and yearly exams. This may be the only treatment needed if your condition and symptoms are mild. ? Medicines to relieve your symptoms, including: ? Medicines to shrink the prostate. ? Medicines to relax the muscle of the prostate. ? Surgery in severe cases. Surgery may include: ? Prostatectomy. In this procedure, the prostate tissue is removed completely through an open incision or with a laparoscope or robotics. ? Transurethral resection of the prostate (TURP). In this procedure, a tool is inserted through the opening at the tip of the penis (urethra). It is used to cut away tissue of the inner core of the prostate. The pieces are removed through the same opening of the penis. This removes the blockage. ? Transurethral incision (TUIP). In this procedure, small cuts are made in the prostate. This lessens the prostate's pressure on the urethra. ? Transurethral microwave thermotherapy (TUMT). This procedure uses microwaves to create heat. The heat destroys and removes a small amount of prostate tissue. ? Transurethral needle ablation (TUNA). This procedure uses radio frequencies to destroy and remove a small amount of prostate tissue. ? Interstitial laser coagulation (ILC). This procedure uses a laser to destroy and remove a small amount of prostate tissue. ? Transurethral electrovaporization (TUVP). This procedure uses electrodes to destroy and remove a small amount of prostate tissue. ? Prostatic urethral lift. This procedure inserts an implant to push the lobes of the prostate away from the urethra. Follow these instructions at home: ? Take ggfb-iah-sbanrrb and prescription medicines only as told by your health care provider. ? Monitor your symptoms for any changes. Contact your health care provider with any changes. ? Avoid drinking large amounts of liquid before going to bed or out in public. ? Avoid or reduce how much caffeine or alcohol you drink. ? Give yourself time when you urinate. ? Keep all follow-up visits. This is important. Contact a health care provider if: ? You have unexplained back pain. ? Your symptoms do not get better with treatment. ? You develop side effec (more content not included)... [facility] 07-22-2023 Hospital Discharge instructions Patient Education 07/22/2023 14:52:00 Prostatitis Prostatitis Prostatitis is swelling or inflammation of the prostate gland, also called the prostate. This gland is about 1.5 inches wide and 1 inch high, and it is involved in making semen. The prostate is located below a man's bladder, in front of the rectum. There are four types of prostatitis: Chronic prostatitis (CP), also called chronic pelvic pain syndrome (CPPS). This is the most common type of prostatitis. It is associated with increased muscle tone in the area between the hip bones (pelvic area), around the prostate. This type is also known as a pelvic floor disorder. Chronic bacterial prostatitis. This type usually results from an acute bacterial infection in the prostate gland that keeps coming back or has not been treated properly. The symptoms are less severe than those caused by acute bacterial prostatitis, which lasts a shorter time. Asymptomatic inflammatory prostatitis. This type does not have symptoms and does not need treatment. This is diagnosed when tests are done for other disorders of the urinary tract or reproductive tract. Acute bacterial prostatitis. This type starts quickly and results from an acute bacterial infection in the prostate gland. It is usually associated with a bladder infection, high fever, and chills. This is the least common type of prostatitis. What are the causes? Bacterial prostatitis is caused by an infection from bacteria. Chronic nonbacterial prostatitis may be caused by: Factors related to the nervous system. This system includes thebrain, spinal cord, and nerves. An autoimmune response. This happens when the body's disease-fighting system attacks healthy tissue in the body by mistake. Psychological factors. These have to do with how the mind works. The causes of the other types of prostatitis are usually not known. What are the signs or symptoms? Symptoms of this condition depend on the type of prostatitis you have. Acute bacterial prostatitis Symptoms may include: Pain or burning during urination. Frequent and sudden urges to urinate. Trouble starting to urinate. Fever. Chills. Pain in your muscles or joints, lower back, or lower abdomen. Other types of prostatitis Symptoms may include: Sudden urges to urinate, or urinating often. Trouble starting to urinate. Weak urine stream. Dribbling after urination. Discharge coming from the penis. Pain in the testicles, the penis, or the tip of the penis. Pain in the area in front of the rectum and below the scrotum (perineum). Pain when ejaculating. How is this diagnosed? This condition may be diagnosed based on: A physical and medical exam. A digital rectal exam. For this, the health care provider may use a finger to feel the prostate. A urine test to check for bacteria. A semen sample or blood tests. Ultrasound. Urodynamic tests to check how your body handles urine. Cystoscopy to look inside your bladder or inside the part of your body that drains urine from the bladder (urethra). How is this treated? Treatment for this condition depends on the type of prostatitis. Treatment may involve: Medicines to relieve pain or inflammation, or to help relax your muscles. Physical therapy. Heat therapy. Biofeedback. These techniques help you control certain body functions. Relaxation exercises. Antibiotic medicine, if your condition is caused by bacteria. Sitz baths. These warm water baths help to relax your pelvic floor muscles, which helps to relieve pressure on the prostate. Follow these instructions at home: Medicines Take iajs-jzr-wepnjad and prescription medicines only as told by your health care provider. If you were prescribed an antibiotic medicine, take it as told by your health care provider. Do not stop using the antibiotic even if you start to feel better. Managing pain and swelling Take sitz baths as directed by your health care provider. For a sitz bath, sit in warm water that is deep enough to cover your hips and buttocks. If directed, apply heat to the affected area as often as told by your health care provider. Use the heat source that your health care provider recommends, such as a moist heat pack or a heating pad. ?Place a towel between your skin and the heat source. ?Leave the heat on for 20 30 minutes. ?Remove the heat if your skin turns bright red. This is especially important if you are unable to feel pain, heat, or cold. You may have a greater risk of getting burned. General instructions Do exercises as told by your health care provider, if you were prescribed physical therapy, biofeedback, or relaxation exercises. Keep all follow-up visits as told by your health care provider. This is important. Where to find more information National [place] of Diabetes and Digestive and Kidney Diseases: https://www.niddk.nih.gov Contact a health care provider if: Your symptoms get worse. You have a fever. Get help right away if: You have chills. You feel light-headed or feel like you may faint. You cannot urinate. You have blood or blood clots in your urine. Summary Prostatitis is swelling or inflammation of the prostate gland. Treatment for this condition depends on the type of prostatitis. Take xeqx-jvj-gyxowpk and prescription medicines only as told by your health care provider. Get help right away of you have chills, feel light-headed, feel like you may faint, cannot urinate, or have blood or blood clots in your urine. This information is not intended to replace advice given to you by your health care provider. Make sure you discuss any questions you have with your health care provider. Document Revised: 03/23/2020 Document Reviewed: 03/23/2020 [employer] Patient Education 2022 [place]. Follow Up Care 07/21/2023 16:51:23 With:GREGORIA FISHER PA-C, URL Address: [address] [place] [address] When: Unknown [facility] 12-15-2022 Hospital Discharge instructions Follow Up Care 12/15/2022 15:00:39 With:JOHNATHAN ALEGRIA, Dov Duron, URL Address: [facility] [address], [place] [phone] When: Unknown [facility] 12-15-2022 Hospital Discharge instructions Patient Education 12/15/2022 14:55:52 Clean Intermittent Catheterization, Male Clean Intermittent Catheterization, Male Clean intermittent catheterization (CIC) is a procedure to remove urine from the bladder by placing a small, flexible tube (catheter) into the bladder though the urethra. The urethra is a tube in the body that carries urine from the bladder out of the body. CIC may be done when: You cannot completely empty your bladder on your own. This may be due to a blockage in the bladder or urethra. Your bladder leaks urine. This may happen when the muscles or nerves near the bladder are not working normally, so the bladder overflows. Your health care provider will show you how to perform CIC and will help you to become comfortable performing this procedure at home. Your health care provider will also help you to get the home care supplies that are needed for this procedure. Supplies needed: Germ-free (sterile), water-based lubricant. A container for urine collection. You may also use the toilet to dispose of urine from the catheter. A catheter. Your health care provider will determine the best size for you. ?Use this catheter size: Clean gloves. Soap and water. Towel. How to perform this procedure: Most people need CIC at least 4 times per day to adequately empty the bladder. Your health care provider will tell you how often you should perform CIC. Number of times per day to perform CIC: __ To perform CIC, follow these steps: 1.Wash your hands with soap and water. If soap and water are not available, use hand town manager. 2.Clean your penis with soap and water. Dry the tip of your penis completely. 3.Prepare the supplies that you will use during the procedure. Open the catheter package and lubricant. 4.Get in a comfortable position. Possible positions include: Sitting on a toilet, a chair, or the edge of a bed. Standing near a toilet. Lying down with your head raised on pillows and your knees pointing to the ceiling. You may wish to place a waterproof mat or pad under you. 5.If you are using a urine collection container, position it between your legs. 6.Urinate, if you are able. 7.Put on gloves. 8.Apply lubricant to about 2 inches (5 cm) of the tip of the catheter. 9.Set the catheter down on a clean, dry surface within reach. 10.Gently stretch your penis out from your body. Pull back any skin that covers the end of your penis (foreskin). Clean the end of your penis with medicated sterile swabs as told by your health care provider. 11.Hold your penis upward at a 45 60 degree angle. This helps to straighten the urethra. 12.Slowly insert the lubricated catheter straight into your urethra until urine flows freely. This is usually about 6 8 inches (15 20 cm). 13.When urine starts to flow freely, insert the catheter 1 inch (3 cm) more. Allow urine to drain into the toilet or the urine collection container. 14.When urine stops flowing, slowly remove the catheter. 15.Note the color, amount, and odor of the urine. 16.Measure your urine and note the amount, if told by your health care provider. 17.Discard the urine in the toilet. 18.Clean your penis using soap and water. 19.Move the foreskin back in place, if applicable. 20.If you are using a single-use catheter, discard the catheter and supplies. 21.Wash your hands with soap and water. 22.If you are using a reusable catheter, follow package instructions about how to clean the catheter after each use. How often should I perform this procedure? Do CIC to empty your bladder every 4 6 hours or as often as told by your health care provider. If you have symptoms of too much urine in your bladder (overdistension) and you are not able to urinate, perform CIC. Symptoms of overdistension may include: ?Restlessness. ?Sweating or chills. ?Headache. ?Flushed or pale skin. ?Bloated lower abdomen. What are the risks? Generally, this is a safe procedure, however problems may occur, including: Infection. Injury to the urethra. Irritation of the urethra. Follow these instructions at home General instructions Drink enough fluid to keep your urine pale yellow. Dispose of a multiple use catheter when it becomes dry, brittle, or cloudy. This usually happens after you use the catheter for 1 week. Avoid caffeine. Caffeine may make you need to urinate more frequently and more urgently. When traveling, bring extra supplies with you in case of delays. Keep supplies with you in a place that you can access easily. If traveling by plane: ?Make sure that the lubricant in your carry-on bag is less than 3.4 ounces (100 mL). ?Use a single-use catheter. It may be difficult to clean a reusable catheter in a small bathroom. Take jryz-tcv-msywuyo and prescription medicines only as told by your health care provider. Keep all follow-up visits as told by your health care provider. This is important. Contact a health care provider if you: Have difficulty performing CIC. Have urine leaking during CIC. Have: ?Dark or cloudy urine. ?Blood in your urine or in your catheter. ?A change in the smell of your urine or discharge. ?A burning feeling while you urinate. Feel nauseous or you vomit. Have pain in your abdomen, your back, or your sides below your ribs. Have swelling or redness around the opening of your urethra. Develop a rash or sores on your skin. Get help right away if you have: A fever. Symptoms that do not go away after 3 days. Symptoms that suddenly get worse. Severe pain. A decrease in the amount of urine that drains from your bladder. Summary Clean intermittent catheterization (CIC) is a procedure to remove urine from the bladder by placing a small, flexible tube (catheter) into the bladder though the urethra. Your health care provider will show you how to perform CIC and will help you to become comfortable performing this procedure at home. Most people need CIC at least 4 times per day to adequately empty the bladder. This information is not intended to replace advice given to you by your health care provider. Make sure you discuss any questions you have with your health care provider. Document Revised: 12/23/2021 Document Reviewed: 12/23/2021 [employer] Patient Education 2022 [place]. Follow Up Care 08/18/2022 15:53:30 With:JOHNATHAN ALEGRIA, Dov Duron, URL Address: [facility] [address] , [place] [address]- When:Within 6 Month(s) [facility] 08-18-2022 Hospital Discharge instructions Patient Education 08/18/2022 08:50:00 Benign Prostatic Hyperplasia Benign Prostatic Hyperplasia Benign prostatic hyperplasia (BPH) is an enlarged prostate gland that is caused by the normal aging process. The prostate may get bigger as a man gets older. The condition is not caused by cancer. The prostate is a walnut-sized gland that is involved in the production of semen. It is located in front of the rectum and below the bladder. The bladder stores urine. The urethra carries stored urine out of the body. An enlarged prostate can press on the urethra. This can make it harder to pass urine. The buildup of urine in the bladder can cause infection. Back pressure and infection may progress to bladder damage and kidney (renal) failure. What are the causes? This condition is part of the normal aging process. However, not all men develop problems from this condition. If the prostate enlarges away from the urethra, urine flow will not be blocked. If it enlarges toward the urethra and compresses it, there will be problems passing urine. What increases the risk? This condition is more likely to develop in men older than 50 years. What are the signs or symptoms? Symptoms of this condition include: Getting up often during the night to urinate. Needing to urinate frequently during the day. Difficulty starting urine flow. Decrease in size and strength of your urine stream. Leaking (dribbling) after urinating. Inability to pass urine. This needs immediate treatment. Inability to completely empty your bladder. Pain when you pass urine. This is more common if there is also an infection. Urinary tract infection (UTI). How is this diagnosed? This condition is diagnosed based on your medical history, a physical exam, and your symptoms. Tests will also be done, such as: A post-void bladder scan. This measures any amount of urine that may remain in your bladder after you finish urinating. A digital rectal exam. In a rectal exam, your health care provider checks your prostate by putting a lubricated, gloved finger into your rectum to feel the back of your prostate gland. This exam detects the size of your gland and any abnormal lumps or growths. An exam of your urine (urinalysis). A prostate specific antigen (PSA) screening. This is a blood test used to screen for prostate cancer. An ultrasound. This test uses sound waves to electronically produce a picture of your prostate gland. Your health care provider may refer you to a specialist in kidney and prostate diseases (urologist). How is this treated? Once symptoms begin, your health care provider will monitor your condition (active surveillance or watchful waiting). Treatment for this condition will depend on the severity of your condition. Treatment may include: Observation and yearly exams. This may be the only treatment needed if your condition and symptoms are mild. Medicines to relieve your symptoms, including: ?Medicines to shrink the prostate. ?Medicines to relax the muscle of the prostate. Surgery in severe cases. Surgery may include: ?Prostatectomy. In this procedure, the prostate tissue is removed completely through an open incision or with a laparoscope or robotics. ?Transurethral resection of the prostate (TURP). In this procedure, a tool is inserted through the opening at the tip of the penis (urethra). It is used to cut away tissue of the inner core of the prostate. The pieces are removed through the same opening of the penis. This removes the blockage. ?Transurethral incision (TUIP). In this procedure, small cuts are made in the prostate. This lessens the prostate's pressure on the urethra. ?Transurethral microwave thermotherapy (TUMT). This procedure uses microwaves to create heat. The heat destroys and removes a small amount of prostate tissue. ?Transurethral needle ablation (TUNA). This procedure uses radio frequencies to destroy and remove a small amount of prostate tissue. ?Interstitial laser coagulation (ILC). This procedure uses a laser to destroy and remove a small amount of prostate tissue. ?Transurethral electrovaporization (TUVP). This procedure uses electrodes to destroy and remove a small amount of prostate tissue. ?Prostatic urethral lift. This procedure inserts an implant to push the lobes of the prostate away from the urethra. Follow these instructions at home: Take dijl-lph-evxhfwv and prescription medicines only as told by your health care provider. Monitor your symptoms for any changes. Contact your health care provider with any changes. Avoid drinking large amounts of liquid before going to bed or out in public. Avoid or reduce how much caffeine or alcohol you drink. Give yourself time when you urinate. Keep all follow-up visits. This is important. Contact a health care provider if: You have unexplained back pain. Your symptoms do not get better with treatment. You develop side effects from the medicine you are taking. Your urine becomes very dark or has a bad smell. Your lower abdomen becomes distended and you have trouble passing urine. Get help right away if: You have a fever or chills. You suddenly cannot urinate. You feel light-headed or very dizzy, or you faint. There are large amounts of blood or clots in your urine. Your urinary problems become hard to manage. You develop moderate to severe low back or flank pain. The flank is the side of your body between the ribs and the hip. These symptoms may be an emergency. Get help right away. Call 911. Do not wait to see if the symptoms will go away. Do not drive yourself to the hospital. Summary Benign prostatic hyperplasia (BPH) is an enlarged prostate that is caused by the normal aging process. It is not caused by cancer. An enlarged prostate can press on the urethra. This can make it hard to pass urine. This condition is more likely to develop in men older than 50 years. Get help right away if you suddenly cannot urinate. This information is not intended to replace advice given to you by your health care provider. Make sure you discuss any questions you have with your health care provider. Document Revised: 09/04/2021 Document Reviewed: 09/04/2021 [employer] Patient Education 2022 [place]. Follow Up Care 02/17/2022 13:56:55 With:JOHNATHAN ALEGRIA, DONAL Joshua Address: [facility] [address] , [place] [address]- When: Unknown [facility] 02-17-2022 Hospital Discharge instructions Patient Education 02/17/2022 08:31:44 Benign Prostatic Hyperplasia Benign Prostatic Hyperplasia Benign prostatic hyperplasia (BPH) is an enlarged prostate gland that is caused by the normal aging process and not by cancer. The prostate is a walnut-sized gland that is involved in the production of semen. It is located in front of the rectum and below the bladder. The bladder stores urine and the urethra is the tube that carries the urine out of the body. The prostate may get bigger as a man gets older. An enlarged prostate can press on the urethra. This can make it harder to pass urine. The build-up of urine in the bladder can cause infection. Back pressure and infection may progress to bladder damage and kidney (renal) failure. What are the causes? This condition is part of a normal aging process. However, not all men develop problems from this condition. If the prostate enlarges away from the urethra, urine flow will not be blocked. If it enlarges toward the urethra and compresses it, there will be problems passing urine. What increases the risk? This condition is more likely to develop in men over the age of 50 years. What are the signs or symptoms? Symptoms of this condition include: Getting up often during the night to urinate. Needing to urinate frequently during the day. Difficulty starting urine flow. Decrease in size and strength of your urine stream. Leaking (dribbling) after urinating. Inability to pass urine. This needs immediate treatment. Inability to completely empty your bladder. Pain when you pass urine. This is more common if there is also an infection. Urinary tract infection (UTI). How is this diagnosed? This condition is diagnosed based on your medical history, a physical exam, and your symptoms. Tests will also be done, such as: A post-void bladder scan. This measures any amount of urine that may remain in your bladder after you finish urinating. A digital rectal exam. In a rectal exam, your health care provider checks your prostate by putting a lubricated, gloved finger into your rectum to feel the back of your prostate gland. This exam detects the size of your gland and any abnormal lumps or growths. An exam of your urine (urinalysis). A prostate specific antigen (PSA) screening. This is a blood test used to screen for prostate cancer. An ultrasound. This test uses sound waves to electronically produce a picture of your prostate gland. Your health care provider may refer you to a specialist in kidney and prostate diseases (urologist). How is this treated? Once symptoms begin, your health care provider will monitor your condition (active surveillance or watchful waiting). Treatment for this condition will depend on the severity of your condition. Treatment may include: Observation and yearly exams. This may be the only treatment needed if your condition and symptoms are mild. Medicines to relieve your symptoms, including: ?Medicines to shrink the prostate. ?Medicines to relax the muscle of the prostate. Surgery in severe cases. Surgery may include: ?Prostatectomy. In this procedure, the prostate tissue is removed completely through an open incision or with a laparoscope or robotics. ?Transurethral resection of the prostate (TURP). In this procedure, a tool is inserted through the opening at the tip of the penis (urethra). It is used to cut away tissue of the inner core of the prostate. The pieces are removed through the same opening of the penis. This removes the blockage. ?Transurethral incision (TUIP). In this procedure, small cuts are made in the prostate. This lessens the prostate's pressure on the urethra. ?Transurethral microwave thermotherapy (TUMT). This procedure uses microwaves to create heat. The heat destroys and removes a small amount of prostate tissue. ?Transurethral needle ablation (TUNA). This procedure uses radio frequencies to destroy and remove a small amount of prostate tissue. ?Interstitial laser coagulation (ILC). This procedure uses a laser to destroy and remove a small amount of prostate tissue. ?Transurethral electrovaporization (TUVP). This procedure uses electrodes to destroy and remove a small amount of prostate tissue. ?Prostatic urethral lift. This procedure inserts an implant to push the lobes of the prostate away from the urethra. Follow these instructions at home: Take uumx-cse-ykabsjt and prescription medicines only as told by your health care provider. Monitor your symptoms for any changes. Contact your health care provider with any changes. Avoid drinking large amounts of liquid before going to bed or out in public. Avoid or reduce how much caffeine or alcohol you drink. Give yourself time when you urinate. Keep all follow-up visits as told by your health care provider. This is important. Contact a health care provider if: You have unexplained back pain. Your symptoms do not get better with treatment. You develop side effects from the medicine you are taking. Your urine becomes very dark or has a bad smell. Your lower abdomen becomes distended and you have trouble passing your urine. Get help right away if: You have a fever or chills. You suddenly cannot urinate. You feel lightheaded, or very dizzy, or you faint. There are large amounts of blood or clots in the urine. Your urinary problems become hard to manage. You develop moderate to severe low back or flank pain. The flank is the side of your body between the ribs and the hip. These symptoms may represent a serious problem that is an emergency. Do not wait to see if the symptoms will go away. Get medical help right away. Call your local emergency services (911 in the [place] Do not drive yourself to the hospital. Summary Benign prostatic hyperplasia (BPH) is an enlarged prostate that is caused by the normal aging process and not by cancer. An enlarged prostate can press on the urethra. This can make it hard to pass urine. This condition is part of a normal aging process and is more likely to develop in men over the age of 50 years. Get help right away if you suddenly cannot urinate. This information is not intended to replace advice given to you by your health care provider. Make sure you discuss any questions you have with your health care provider. Document Released: 02/16/2006 Document Revised: 01/11/2019 Document Reviewed: 03/23/2017 [employer] Patient Education 2020 [place]. Follow Up Care 08/19/2021 12:49:49 With:JOHNATHAN ALEGRIA, DONAL Joshua Address: [facility] [address], [place] [address]- When: Unknown [facility] 08-19-2021 Hospital Discharge instructions Patient Education 08/19/2021 12:24:35 Acute Urinary Retention, Male, Aiqa-yr-Lack Acute Urinary Retention, Male Acute urinary retention means that you cannot pee (urinate) at all, or that you pee too little and your bladder is not emptied completely. If it is not treated, it can lead to kidney damage or other serious problems. Follow these instructions at home: Take wcsf-kve-qbrufbv and prescription medicines only as told by your doctor. Ask your doctor what medicines you should stay away from. Do not take any medicine unless your doctor says it is okay to do so. If you were sent home with a tube that drains the bladder (catheter), take care of it as told by your doctor. Drink enough fluid to keep your pee clear or pale yellow. If you were given an antibiotic, take it as told by your doctor. Do not stop taking the antibiotic even if you start to feel better. Do not use any products that contain nicotine or tobacco, such as cigarettes and e-cigarettes. If you need help quitting, ask your doctor. Watch for changes in your symptoms. Tell your doctor about them. If told, track changes in your blood pressure at home. Tell your doctor about them. Keep all follow-up visits as told by your doctor. This is important. Contact a doctor if: You have spasms or you leak pee when you have spasms. Get help right away if: You have chills or a fever. You have a tube that drains the bladder and: ?The tube stops draining pee. ?The tube falls out. You have blood in your pee. Summary Acute urinary retention means that you have problems peeing. It may mean that you cannot pee at all, or that you pee too little. If this condition is not treated, it can lead to kidney damage or other serious problems. If you were sent home with a tube that drains the bladder, take care of it as told by your doctor. Monitor any changes in your symptoms. Tell your doctor about any changes. This information is not intended to replace advice given to you by your health care provider. Make sure you discuss any questions you have with your health care provider. Document Released: 08/04/2008 Document Revised: 05/05/2019 Document Reviewed: 03/20/2017 [employer] Patient Education 2020 [place]. Follow Up Care 05/13/2021 12:38:46 With:Dov MARTIN MD, URL Address: [facility] [address], [place] [address]- [phone] When:02/18/2022 [facility] Evaluation + Plan note Future Appointments Appointment Date:02/17/2022 11:30:00 AM Scheduled Provider:Dov MARTIN MD Location:[facility] Appointment Type:URO Office Visit [facility] Evaluation + Plan note Future Appointments Appointment Date:08/18/2022 02:15:00 PM Scheduled Provider:Dov MARTIN MD Location:[facility] Appointment Type:URO Office Visit [facility] Evaluation + Plan note Future Appointments Appointment Date:12/15/2022 01:45:00 PM Scheduled Provider:Dov MARTIN MD Location:[facility] Appointment Type:URO Office Visit [facility] Evaluation + Plan note Future Appointments Appointment Date:06/29/2023 12:45:00 PM Scheduled Provider:Dov MARTIN MD Location:[facility] Appointment Type:URO Office Visit [facility] Evaluation + Plan note Future Appointments Appointment Date:08/31/2023 01:15:00 PM Scheduled Provider:Dov MARTIN MD Location:[facility] Appointment Type:URO Office Visit [facility] Evaluation + Plan note Future Appointments Appointment Date:12/14/2023 01:45:00 PM Scheduled Provider:Dov MARTIN MD Location:[facility] Appointment Type:URO Office Visit [facility] Hospital course Narrative No data available for this section [facility] Hospital Discharge instructions No data available for this section [facility] Progress note No data available for this section [facility] Summary Purpose Family History No Family History Records Found No data available for this section No Family History Records Found No data available for this section No data available for this section No data available for this section No data available for this section No Family History Records Found Advance Directives No Advanced Directives Records FoundNo Advanced Directives Records FoundNo Advanced Directives Records Found Additional Source Comments (unrecognized sect ion and content) No Status Records FoundNo Status Records FoundNo Status Records Found INFORMATION SOURCE (unrecogn ized section and content) DATE CREATED AUTHOR 01/05/2021 [facility] pital DATE CREATED AUTHOR AUTHOR'S ORGANIZ ATION 03/14/2023 [facility] EPIC DATE CREATED AUTHOR AUTHOR'S ORGANIZ ATION 09/01/2023 [facility] Care Team (unrecognized sect ion and content) Personnel Name: Gregoria Truong DO Address: [address] [place] [address] Personnel Name: Gregoria Truong DO Address: Address: [address] [place] [address] Personnel Name: Gregoria Truong DO Address: Address: [address] [place] [address] Personnel Name: Gregoria Truong DO Address: Address: [address] [place] [address] Personnel Name: Gregoria Truong DO Address: Address: [address] [place] [address] Personnel Name: Gregoria Truong DO Address: Address: [address] [place] [address] Personnel Name: Gregoria Truong DO Address: Address: [address] [place] [address] Personnel Name: Gregoria Truong DO Address: Address: [address] [place] [address] FOR RECORDS PERTAINING TO PATIENTS WHO ARE OR HAVE BEEN ENROLLED IN A CHEMICAL DEPENDENCY/SUBSTANCEABUSE PROGRAM, SOME INFORMATION MAY BE OMITTED. This clinical summary was aggregated from multiple sources. Caution should be exercised in using it in the provision of clinical care. This summary normalizes information from multiple sources, and as a consequence, information in this document may materially change the coding, format and clinical context of patient data. In addition, data may be omitted in some cases. CLINICAL DECISIONS SHOULD BE BASED ON THE PRIMARY CLINICAL RECORDS. [facility] [employer] [facility]. provides no warranty or guarantee of the accuracy or completeness of information in this document.
--- NOTE | 2023-10-13 18:02 | ECG_ITS ---
The 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
--- NOTE | 2023-10-13 18:02 | XR_ITS ---
The [address] [address] Patient Name: ROBERT BASSETT MRN: [id number] date: 1945 Sex: M Assigned Patient Location: ER Current Patient Location: Accession/Order Number: [id number] Exam Date: 10/13/2023 18:12 Report Date: 10/13/2023 19:12 At the request of: ALBERT PUTNAM Procedure: XR chest 1V XR chest 1V 10/13/2023 6:12 PM EDT CLINICAL INDICATION: Shortness of breath COMPARISON: None. TECHNIQUE: Portable semiupright AP view of the chest. FINDINGS: There are no tubes or implants noted. The cardiomediastinal silhouette and pulmonary vasculature are within normal limits. No focal parenchymal opacities. Right costophrenic angle is incompletely imaged. No pneumothorax or pleural effusion in the [id number]. No displaced rib fractures. Osseous structures demonstrate degenerative changes. Soft tissues are grossly normal. XR/XR chest 1V IMPRESSION: Right costophrenic angle is noted to be incompletely imaged. No acute cardiopulmonary abnormality within the limitations of the study. Electronically authenticated by: ION WONG Date: 10/13/2023 19:12
--- NOTE | 2023-10-13 18:04 | ED_ITS ---
HPI - SOB/Dyspnea General Chief Complaint: Shortness of Breath/Dyspnea Stated Complaint: Shortness of Breath Time Seen by Provider: 10/13/23 17:57 Source: patient Mode of arrival: walk-in Limitations: no limitations History of Present Illness HPI Narrative: 78-year-old male presents for shortness of breath. It started today when he got home from taking his to a medical appointment. He does not have chest pain or fever and he always coughs up a small amount of white phlegm. He used his inhaler but he did not feel much better so he came in here. Related Data Home Medications ?Medication ?Instructions ?Recorded ?Confirmed atorvastatin 40 mg tablet 40 mg PO QPM 10/13/23 10/13/23 budesonide 160 mcg-glycopyr 9 2 inh inhalation BID 10/13/23 10/13/23 mcg-formot 4.8 mcg/actuation HFA inhaler (Breztri Aerosphere) buspirone 15 mg tablet 30 mg PO BID 10/13/23 10/13/23 cholecalciferol (vitamin D3) 25 3,000 unit PO DAILY 10/13/23 10/13/23 mcg (1,000 unit) capsule cyanocobalamin (vitamin B-12) 1,000 mcg PO DAILY 10/13/23 10/13/23 1,000 mcg capsule finasteride 5 mg tablet 5 mg PO DAILY 10/13/23 10/13/23 levetiracetam 500 mg tablet 500 mg PO DAILY 10/13/23 10/13/23 (Keppra) montelukast 10 mg tablet 10 mg PO QPM 10/13/23 10/13/23 sertraline 100 mg tablet 200 mg PO DAILY 10/13/23 10/13/23 Allergies Allergy/AdvReac Type Severity Reaction Status Date / Time No Known Drug Allergies Allergy Verified 10/13/23 17:54 Review of Systems ROS Narrative A ten point review of systems is negative except as noted above. Exam Narrative Exam Narrative: Nurses note and vital signs reviewed and patient is not hypoxic. General: The patient appears in no acute respiratory distress Skin: Warm, dry, no pallor noted. There is no rash noted. Head: Normocephalic, atraumatic Eye: Normal conjunctiva, no drainage Ears, Nose, Mouth, and Throat: oral mucosa is moist. Nares patent. Cardiovascular: Regular Rate and Rhythm Respiratory: Breath sounds are equal with good air movement. No rhonchi noted. Back: non-tender GI: Soft and nontender Musculoskeletal: The patient has no evidence of calf tenderness, no pitting edema, symmetrical pulses noted bilaterally Neurological: A&O x4, normal speech Psychiatric: Cooperative Constitutional Vital Signs, click to edit/add: Last Vital Signs Temp 98.4 F 10/13/23 17:55 Pulse 86 10/13/23 17:55 Resp 20 10/13/23 17:55 BP 134/64 10/13/23 17:55 Pulse Ox 96 10/13/23 17:55 O2 Del Method Room Air 10/13/23 17:55 Course Vital Signs Vital signs: Vital Signs Temperature 98.4 F 10/13/23 17:55 Pulse Rate 86 10/13/23 17:55 Respiratory Rate 20 10/13/23 17:55 Blood Pressure 134/64 10/13/23 17:55 Pulse Oximetry 96 10/13/23 17:55 Oxygen Delivery Method Room Air 10/13/23 17:55 Temperature 98.4 F 10/13/23 17:55 Pulse Rate 86 10/13/23 17:55 Respiratory Rate 10/13/23 17:55 Blood Pressure 134/64 10/13/23 17:55 Pulse Oximetry 96 10/13/23 17:55 Oxygen Delivery Method Room Air 10/13/23 17:55 Discharge Plan Discharge Chief Complaint: Shortness of Breath/Dyspnea Print Language: Hungarian Referrals: Physician,Non-Staff, MD [Primary Care Provider] - 1 week
[2023-10-13] MEDS: ALBUTEROL SULFATE 2.5 MG/3 ML VIAL NEB IH (18:15)
[2023-10-13 18:30] LABS: Internal Control Within Normal Limits; SARS-CoV-2 Ag NEGATIVE (NEGATIVE)
--- NOTE | 2023-10-13 19:29 | ED.SOB1 ---
HPI - SOB/Dyspnea General Chief Complaint: Shortness of Breath/Dyspnea Stated Complaint: Shortness of Breath Time Seen by Provider: 10/13/23 17:57 Source: patient Mode of arrival: walk-in Limitations: no limitations History of Present Illness HPI Narrative: This 78-year-old man with a history of COPD who is a former smoker was signed out to me at shift change pending x-ray, COVID-19 test and reevaluation. He presents to the emergency department for shortness of breath after being outside with his running errands today. Patient was seen and evaluated. He is resting comfortably on the stretcher, his pulse ox is 93 to 94% on room air. He states he is feeling much better and request to be discharged home. He denies any chest pain or dizziness. He has no abdominal pain or back pain. He has not had a fever or cough. His EKG is reviewed and is negative for acute findings. COVID-19 test is negative and chest x-ray was reviewed by radiology with no acute findings. He declines an IV or any additional testing. He has inhalers at home that he uses. He was encouraged return the emergency department for worsening shortness of breath, chest pain fever or any concerns. Related Data Home Medications ?Medication ?Instructions ?Recorded ?Confirmed atorvastatin 40 mg tablet 40 mg PO QPM 10/13/23 10/13/23 budesonide 160 mcg-glycopyr 9 2 inh inhalation BID 10/13/23 10/13/23 mcg-formot 4.8 mcg/actuation HFA inhaler (Breztri Aerosphere) buspirone 15 mg tablet 30 mg PO BID 10/13/23 10/13/23 cholecalciferol (vitamin D3) 25 3,000 unit PO DAILY 10/13/23 10/13/23 mcg (1,000 unit) capsule cyanocobalamin (vitamin B-12) 1,000 mcg PO DAILY 10/13/23 10/13/23 1,000 mcg capsule finasteride 5 mg tablet 5 mg PO DAILY 10/13/23 10/13/23 levetiracetam 500 mg tablet 500 mg PO DAILY 10/13/23 10/13/23 (Keppra) montelukast 10 mg tablet 10 mg PO QPM 10/13/23 10/13/23 sertraline 100 mg tablet 200 mg PO DAILY 10/13/23 10/13/23 Allergies Allergy/AdvReac Type Severity Reaction Status Date / Time No Known Drug Allergies Allergy Verified 10/13/23 17:54 Exam Constitutional Vital Signs, click to edit/add: Last Vital Signs Temp 98.4 F 10/13/23 17:55 Pulse 83 10/13/23 19:02 Resp 18 10/13/23 19:02 BP 102/49 10/13/23 19:02 Pulse Ox 94 L 10/13/23 19:02 O2 Del Method Room Air 10/13/23 18:17 Course Vital Signs Vital signs: Vital Signs Temperature 98.4 F 10/13/23 17:55 Pulse Rate 86 10/13/23 17:55 Respiratory Rate 20 10/13/23 17:55 Blood Pressure 134/64 10/13/23 17:55 Pulse Oximetry 96 10/13/23 17:55 Oxygen Delivery Method Room Air 10/13/23 17:55 Temperature 98.4 F 10/13/23 17:55 Pulse Rate 83 10/13/23 19:02 Respiratory Rate 18 10/13/23 19:02 Blood Pressure 102/49 10/13/23 19:02 Pulse Oximetry 94 L 10/13/23 19:02 Oxygen Delivery Method Room Air 10/13/23 18:17 MDM - SOB/Dyspnea Lab Data Labs: Lab Results 10/13/23 Range/Units 18:15 SARS-CoV-2 Ag (CV2AG) Negative (NEGATIVE) ECG Data Attestation: I personally reviewed and interpreted this ECG as follows: (Sinus rhythm at 83 bpm, short [place] interval, nonspecific ST changes, occasional PVCs, no acute ST segment elevation or T wave inversion) Discharge Plan Discharge Stand Alone Forms: Portal Instructions Chief Complaint: Shortness of Breath/Dyspnea Clinical Impression: COPD (chronic obstructive pulmonary disease), Breath shortness Patient Disposition: Home, Self-Care Time of Disposition Decision: 19:28 Condition: Good Prescriptions / Home Meds: No Action atorvastatin 40 mg tablet 40 mg PO QPM Dominic Aerosphere 160-9-4.8 mcg/actuation HFA aerosol inhaler 2 inh inhalation BID buspirone 15 mg tablet 30 mg PO BID cholecalciferol (vitamin D3) 25 mcg (1,000 unit) capsule 3,000 unit PO DAILY cyanocobalamin (vitamin B-12) 1,000 mcg capsule 1,000 mcg PO DAILY finasteride 5 mg tablet 5 mg PO DAILY levetiracetam [Keppra] 500 mg tablet 500 mg PO DAILY montelukast 10 mg tablet 10 mg PO QPM sertraline 100 mg tablet 200 mg PO DAILY Print Language: Luxembourgish Instructions: COPD (Chronic Obstructive Pulmonary Disease) (ED), Shortness of Breath (ED) Referrals: Physician,Non-Staff, MD [Primary Care Provider] - 1 week Discharge Date/Time: 10/13/23 19:34
== END 2023-10-13 19:34 | disposition home or self-care (01) ==
PROVIDERS: Emergency Medicine; Emergency Provider Emergency Medicine
DX: J44.9 Chronic obstructive pulmonary disease, unspecified (principal); R06.02 Shortness of breath; Z20.822 Contact with and (suspected) exposure to COVID-19; Z87.891 Personal history of nicotine dependence
CPT/HCPCS: 71045; 87811; 93005; 94640; 99285

== ENCOUNTER 2023-12-15 07:15 | Outpatient (RCR) | payer OTHER, SELFPAY ==
--- NOTE | 2023-07-07 13:44 | CR1_ITS ---
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
--- NOTE | 2023-07-15 11:16 | CR1_ITS ---
The [facility] Test Date: 2023-07-15 Pat Name: ROBERT BASSETT Department: Room: - Gender: Male Specialty Finishing Utility Person: : 1945 Requested By: YANDY OQUENDO Order Number: [id number] Cliff MD: YANDY OQUENDO Interpretive Statements Session Date: Electronically Signed On 07-15-2023 22:58:21 EDT by YANDY OQUENDO
--- NOTE | 2023-08-12 | CR1_ITS ---
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
--- NOTE | 2023-09-01 07:04 | PC.NURSE ---
Outreach letter due to lack of attendance and copy of attendance policy mailed to patient on this date. Patient has been outreached by phone prior to this letter to help facilitate their attendance in cardiac rehab.
--- NOTE | 2023-09-11 11:00 | CR1_ITS ---
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
--- NOTE | 2023-10-12 07:23 | CR1_ITS ---
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
--- NOTE | 2023-11-11 09:09 | CR1_ITS ---
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
--- NOTE | 2023-12-10 07:24 | CR1_ITS ---
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
--- NOTE | 2023-12-15 15:53 | CR1_ITS ---
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
== END 2023-12-16 12:49 | disposition home or self-care (01) ==
LOC: CR 07:15
PROVIDERS: Visit Provider Internal Medicine
DX: J44.9 Chronic obstructive pulmonary disease, unspecified (principal)
CPT/HCPCS: 94625

== ENCOUNTER 2024-08-10 12:18 | Outpatient (OUT) | payer OTHER, SELFPAY ==
--- NOTE | 2024-08-10 12:26 | MR_ITS ---
The [address] [address] Patient Name: ROBERT TIM MRN: [id number] date: 1945 Sex: M Assigned Patient Location: MRI Current Patient Location: MRI Accession/Order Number: [id number] Exam Date: 08/10/2024 14:57 Report Date: 08/10/2024 15:02 At the request of: DIGNA ARANGO Procedure: MR lumbar spine wo con MRI Lumbar Spine withoutcontrast TECHNIQUE: Multiplanar T1 and T2-weighted imaging of lumbar spine obtained without contrast. HISTORY: Chronic lumbar pain with radiculopathy. Radiation into the right left leg. 30 years duration. COMPARISON: None The last fully segmented vertebral pair is operationally defined as L5/S1. POST SURGERY CHANGES: None BONE MARROW INFILTRATION: None BONE MARROW EDEMA: None BONY ALIGNMENT: Adequate bony alignment identified. LUMBAR FRACTURE: None BONY LESIONS: None KIDNEYS: No hydronephrosis is identified. Bilateral renal cysts AORTA: No aortic aneurysm is seen. CONUS MEDULLARIS : The distal spinal cord is in adequate position without abnormality. Additional findings CONJOINED NERVE ROOT: None Lower thoracic level: Unremarkable L1-2 :Mild disc space narrowing. Mild diffuse disc bulge. Mild central canal stenosis. Posterior element hypertrophy. Mild bilateral neural foraminal narrowing L2-3: Mild disc space narrowing. Diffuse disc bulge. Moderate central canal stenosis. Posterior element hypertrophy. Moderate bilateral neural foraminal narrowing L3-4: Mild disc space narrowing. Diffuse disc bulge. Mild central canal stenosis. Posterior element hypertrophy. Moderate bilateral neural foraminal narrowing L4-5: Marked disc space narrowing. Degenerative endplate changes. Diffuse disc bulge midline disc protrusion. Mild central canal stenosis. Posterior element hypertrophy. Moderate bilateral neural foraminal narrowing greater on the right L5-S1: Disc space narrowing. Diffuse disc bulge. Mild central canal stenosis. Posterior element hypertrophy. Patent neural foramen MR/MR lumbar spine wo con IMPRESSION: Multilevel discovertebral degenerative changes greatest at the L4-5 level. Multilevel central canal stenosis greatest at the L2-3 level. Pre-MRI plain film assessment: None Impression dictated by: Erickson Mullins M.D. 08/10/2024 3:02 PM Dictation Location: [place] [address] Electronically authenticated by: [id number] Y Date: 08/10/2024 15:02
--- OUTSIDE RECORDS SUMMARY | 2024-08-10 12:30 | XMS_ITS | CCD ---
Author Organization [facility] Care Team Providers Care Blue Prints Trimmer Name Role Phone RADHAC, DR TYSON Primary Care Unavailable REQUEST, NONE [...] Attending Unavailable Gregoria Truong Primary Care Physician [phone] GREGORIA TRUONG Attending Unavailable MD Gregoria Truong Primary Care Provider MD Jyoti Thompson Attending Provider MD Jyoti Thompson Referring Provider MD Coy Hylton Attending Provider Toya (Clinic)DO Mustafa Primary Care Provider Lashawn Narayanan Admitting Unavailable Lashawn Narayanan Attending Unavailable Dov MARTIN Attending Unavailable Lashawn Narayanan Attending Unavailable OrLashawn prakash Attending Unavailable Dov MARTIN Attending Unavailable Dov MARTIN Attending Unavailable Dov MARTIN Attending Unavailable GREGORIA FISHER Attending Unavailable GREGORIA FISHER Attending Unavailable Sreekanth Mark II Admitting UnavailSreekanth Flood II Attending UnavailGregoria [place] Primary Care Unavailable Gregoria Truong Primary Care Unavailable Coy Hylton Admitting Unavailable Coy Hylton Attending Unavailable Jyoti Thompson Referring Unavailable Coy Hylton Admitting Unavailable Coy Hylton Attending Unavailable Toya (Clinic)Moon Primary Care Gregoria Carlin MD Primary Care Provider Sreekanth Mark MD Attending Provider Allergies Allergy Classification Reported Allergen(s) Allergy Type Date of Onset Reaction(s) Facility Adrenergic Antagonists (1 source) tamsulosin; Translations: [tamsulosin] Drug Allergy Low blood pressure (disorder) [facility] (12 sources) tamsulosin; Translations: [tamsulosin] Drug Allergy Low blood pressure (disorder) [facility] (1 source) Terazosin Drug Allergy [facility] Repository Medications Current Medications Medication Drug Class(es) Dates Sig (Normalized) Sig (Original) acetaminophen 500 mg oral tablet (14 sources) Start: 08-04-2024 take 1 tablet by mouth every six hours as needed Acetaminophen (Tylenol Extra Strength) 500 mg tablet Active 500 MG PO Every 6 hours as needed August 04, 2024 12:00am Start: 11-22-2020 take 1 tablet by dorys th four times daily as needed for pain [...] Status: Ordered atorvastatin 40 mg oral tablet (17 sources) HMG-CoA Reductase Inhibitor Start: 07-09-2015 take 1 tablet by mouth once daily Atorvastatin 40 mg tablet Active 40 MG PO Daily October 29, 2023 12:00am Breztri Aerosphere inhalation aerosol (5 sources) Start: 08-31-2023 take 1 puff(s) by inhalation twice daily Breztri Aerosphere inhalation aerosol puff(s), Inhalation, BID, Refill(s) 0 Start Date: 08/31/23 Status: Ordered 120 actuat budesonide 0.16 mg/actuat / formoterol fumarate 0.0048 mg/actuat / glycopyrrolate 0.009 mg/actuat metered dose inhaler (5 sources) Corticosteroid, beta2-Adrenergi c Agonist Start: 10-29-2023 Budesonide-Glycopy r-Formoterol (Breztri Aerosphere) 160-9-4.8 mcg/actuation HFA aerosol inhaler Active 2 INH INHALATION Twice daily October 29, 2023 12:00am busPIRone hydrochloride 10 mg oral tablet (17 sources) Start: 10-29-2023 take 20 mg by mouth twice daily Buspirone Active 20 MG PO Twice daily October 29, 2023 12:00am Start: 11-22-2020 take 2 tablets by mo [facility] twice daily Buspirone 10 mg tablet Active 20 MG PO Twice daily October 29, 2023 12:00am capsaicin 0.25 mg/ml topical cream (7 sources) Start: 11-22-2020 capsaicin topical 0.025% cream See Instructions, Refill(s) 0, apply 3 times a day to feet Start Date: 11/22/20 Status: Ordered Carboxymethylcellulose Sodium 0.5 % dropperette (2 sources) Start: 08-04-2024 take 1 drop(s) into the eye(s) twice daily Carboxymethylcellulose Sodium 0.5 % dropperette Active 1 DROPS EYE-BOTH Twice daily August 04, 2024 12:00am Centrum Silver (12 sources) Start: 07-09-2015 Centrum Silver Oral, Daily, Refill(s) 0, Prophylaxis Start Date: 07/09/15 Status: Ordered cholecalciferol 0.025 mg oral capsule (14 sources) Vitamin D Start: 08-04-2024 take 1 capsule by mouth once daily Cholecalciferol (Vitamin D3) 25 mcg (1,000 unit) capsule Active 25 MCG PO Daily August 04, 2024 12:00am Start: 11-22-2020 take 1 tablet by [place] once daily cholecalciferol 1000 intl units oral tablet 75 mcg = 3 tab(s), Oral, Daily Start Date: 11/22/20 Status: Ordered Start: 11-22-2020 take 1 tablet by [facility] once daily cholecalciferol 1000 intl units oral tablet 75 mcg = 3 tab(s), Oral, Daily Start Date: 11/22/20 Status: Ordered ciprofloxacin 500 mg oral tablet (2 sources) Quinolone Antimicrobial Start: 02-23-2024 End: 03-01-2024 take 1 tablet by mouth every twelve hours Cipro 500 mg Tab 500 mg = 1 tab(s), Oral, q12hr, X 7 day(s), # 14 tab(s), Refills(s) 0, Pharmacy: [id number], 176, cm, 02/23/24 10:05:00 EST, Height/Length Dosing, 75, kg, 02/23/24 10:05:00 EST, Weight Dosing Start Date: 02/23/24 Stop Date: 03/01/24 Status: Ordered docusate sodium 100 mg oral capsule (9 sources) Start: 08-04-2024 take 1 capsule by mouth once daily Docusate Sodium 100 mg capsule Active 100 MG PO Daily August 04, 2024 12:00am Start: 11-26-2020 take 1 capsule by [facility] twice daily docusate sodium 100 mg Cap 100 mg = 1 cap(s), Oral, BID, Refills(s) 0 Start Date: 11/26/20 Status: Ordered doxycycline hyclate 100 mg oral capsule (1 source) Tetracycline-class Drug Start: 02-26-2024 End: 03-04-2024 take 1 capsule by mouth twice daily doxycycline hyclate 100 mg Cap 100 mg = 1 cap(s), Oral, BID, may substitute hyclate for monohydrate based on availability, X 7 day(s), # 14 cap(s), Refills(s) 0, Pharmacy: [facility], 176, cm, 02/23/24 10:05:00 EST, Height/Length Dosing, 75, kg, 02/23/24 10:05:00 EST, Weight Dosing Start Date: 02/26/24 Stop Date: 03/04/24 Status: Ordered finasteride 5 mg oral tablet (17 sources) 5-alpha Reductase Inhibitor Start: 03-22-2021 take 1 tablet by mouth once daily Finasteride 5 mg tablet Active 5 MG PO Daily October 29, 2023 12:00am guaiFENesin 400 mg oral tablet (12 sources) Start: 11-22-2020 take 1 tablet by mouth every four hours as needed for cough guaifenesin 400 mg oral tablet 400 mg = 1 tab(s), Oral, q4hr, PRN as needed for cough, Refills(s) 0 Start Date: 11/22/20 Status: Ordered Hydrophilic ointment (2 sources) Start: 08-04-2024 Hydrophilic ointment Active 1 APPLIC TOPICAL Three times daily as needed August 04, 2024 12:00am levETIRAcetam 500 mg oral tablet (17 sources) Start: 11-22-2020 take 1 tablet by mouth once daily Levetiracetam (Keppra) 500 mg tablet Active 500 MG PO Daily October 29, 2023 12:00am levoFLOXacin 500 mg oral tablet (1 source) Quinolone Antimicrobial Start: 07-22-2023 take 1 tablet by mouth once daily Levaquin 500 mg Tab 500 mg = 1 tab(s), Oral, Daily, # 30 tab(s), Refills(s) 0, Pharmacy: [facility]/pharmacy #[id number], 179, cm, 07/22/23 14:27:00 EDT, Height/Length Dosing, 78.3, kg, 07/22/23 14:27:00 EDT, Weight Dosing Start Date: 07/22/23 Status: Ordered Lidocaine (12 sources) Antiarrhythmic, Amide Local Anesthetic Start: 11-26-2020 lidocaine 5% patch TransDermal, Daily, Refill(s) 0 Start Date: 11/26/20 Status: Ordered melatonin 3 mg oral tablet (17 sources) Start: 10-29-2023 take 3 capsules by mouth once daily at bedtime as needed Melatonin 3 mg capsule Active 9 MG PO Daily at bedtime as needed October 29, 2023 12:00am Start: 10-29-2023 take 9 mg by mouth o nce daily at bedtime Melatonin Active 9 MG PO Daily at bedtime October 29, 2023 12:00am Start: 11-22-2020 take 2 tablets by mo uth once daily at bedtime as needed melatonin [...] Status: Ordered montelukast 10 mg oral tablet (17 sources) Leukotriene Receptor Antagonist Start: 03-22-2021 take 1 tablet by mouth once daily Montelukast 10 mg tablet Active 10 MG PO Daily October 29, 2023 12:00am mupirocin 0.02 mg/mg topical ointment (7 sources) RNA Synthetase Inhibitor Antibacterial Start: 11-22-2020 mupirocin Top 2% Oint See Instructions, Refill(s) 0, apply a thin film to leg scabs twice a day Start Date: 11/22/20 Status: Ordered Olopatadine 0.1 % drops (2 sources) Start: 08-04-2024 Olopatadine 0.1 % drops Active 1 DROPS EYE-BOTH Twice daily August 04, 2024 12:00am separate doses by at least 6-8 hours pregabalin 75 mg oral capsule (4 sources) Start: 06-06-2024 take 1 capsule by mouth at bedtime Pregabalin 75 mg capsule Active 75 MG PO Daily at bedtime June 06, 2024 3:08pm Take 30-60 min prior to bedtime Start: 04-28-2024 End: 06-06-2024 take 1 capsule by mouth at bedtime Pregabalin 50 mg capsule Discontinued 50 MG PO Daily at bedtime April 28, 2024 1:00am June 06, 2024 3:08pm Take 30-60 min prior to bedtime primidone 50 mg oral tablet (7 sources) Anti-epileptic Agent Start: 11-22-2020 take 2 tablets by mouth once daily primidone 50 mg Tab 100 mg = 2 tab(s), Oral, Daily, Refills(s) 0 Start Date: 11/22/20 Status: Ordered sertraline 100 mg oral tablet (17 sources) Serotonin Reuptake Inhibitor Start: 10-29-2023 take 1 tablet by mouth twice daily Sertraline 100 mg tablet Active 100 MG PO Twice daily October 29, 2023 12:00am Start: 07-09-2015 take 200 mg by mouth once monty y sertraline 200 mg, Oral, Daily, Refills(s) 0, [...] feet Start Date: 11/22/20 Status: Ordered vitamin b12 1 mg oral capsule (14 sources) Vitamin B12 Start: 08-04-2024 take 1 capsule by mouth once daily Cyanocobalamin (Vitamin B-12) 1,000 mcg capsule Active 1000 MCG PO Daily August 04, 2024 12:00am Start: 11-22-2020 take 1 tablet by dorys th once daily cyanocobalamin 1000 mcg oral tablet 1,000 mcg = 1 tab(s), Oral, Daily, Refills(s) 0 Start Date: 11/22/20 Status: Ordered Start: 11-22-2020 take 1 tablet by dorys th once daily cyanocobalamin 1000 mcg oral tablet 1,000 mcg = 1 tab(s), Oral, Daily, Refills(s) 0 Start Date: 11/22/20 Status: Ordered Completed/Discontinued Medications Medication Drug Class(es) Dates Sig (Normalized) Sig (Original) gabapentin 300 mg oral capsule (19 sources) Anti-epileptic Agent Start: 12-14-2023 take 1 capsule by mouth once daily at bedtime gabapentin 300 mg Cap 300 mg = 1 cap(s), Oral, Once a day (at bedtime), # 30 cap(s), Refills(s) 0 Start Date: 12/14/23 Status: Ordered Start: 10-29-2023 End: 04-28-2024 take 2 capsules by mouth once daily Gabapentin 300 mg capsule Discontinued 300 MG PO Daily at bedtime December 23, 2023 7:06am April 28, 2024 3:50pm take an hour or two before bed Start: 07-09-2015 take 600 mg by mouth three times daily gabapentin 600 mg, Oral, TID, Refills(s) 0, Pain Start Date: 07/09/15 Status: Ordered Problems Active Problems Problem Classification Problem Date Documented Date Episodic/Chronic Abdominal pain (6 sources) Inguinal pain 07-22-2023 Episodic Acquired foot deformities (4 sources) Foot-drop; Translations: [Foot drop, right foot] 08-04-2024 Episodic Anxiety disorders (20 sources) Posttraumatic stress disorder; Translations: [Post-traumatic stress disorder, unspecified] 03-22-2021 Chronic Chronic obstructive pulmonary disease and bronchiectasis (18 sources) Chronic obstructive pulmonary disease, unspecified; Translations: [Pulmonary emphysema] Onset: 12-24-2020 03-22-2021 Chronic Disorders of lipid metabolism (5 sources) Hypercholesterolemia; Translations: [Pure hypercholesterolemia, unspecified] 10-29-2023 Chronic Essential hypertension (8 sources) Essential hypertension; Translations: [Essential (primary) hypertension] 10-29-2023 Chronic Genitourinary symptoms and ill-defined conditions (6 sources) Urge incontinence; Translations: [Urge incontinence of urine] Onset: 12-14-2023 Chronic Genitourinary symptoms and ill-defined conditions (20 sources) Retention of urine; Translations: [Retention of urine, unspecified] Onset: 08-19-2021 Episodic Hyperplasia of prostate (20 sources) Benign prostatic hypertrophy with outflow obstruction; Translations: [Benign prostatic hyperplasia with lower urinary tract symptoms] Onset: 08-19-2021 Chronic Inflammatory conditions of male genital organs (14 sources) Prostatitis; Translations: [Inflammatory disease of prostate, unspecified] Onset: 08-19-2021 Episodic Miscellaneous mental health disorders (5 sources) Psychophysiologic insomnia; Translations: [Psychophysiologic insomnia] 10-29-2023 Chronic Mood disorders (5 sources) Major depressive disorder; Translations: [Major depressive disorder, single episode, unspecified] 10-29-2023 Chronic Osteoarthritis (4 sources) Osteoarthritis of bilateral hip joints; Translations: [Bilateral primary osteoarthritis of hip] 08-04-2024 Chronic Other circulatory disease (4 sources) Hypotension, unspecified; Translations: [HYPOTENSION UNSPECIFIED] Onset: 12-19-2020 Episodic Other diseases of kidney and ureters (1 source) Urinary tract obstruction; Translations: [Other obstructive and reflux uropathy] Onset: 02-23-2024 Episodic Other hematologic conditions (5 sources) H/O: anemia - iron deficient; Translations: [Personal history of diseases of the blood and blood-forming organs and certain disorders involving the immune mechanism] 10-29-2023 Episodic Other hematologic conditions (5 sources) Personal history of diseases of the blood and blood-forming organs and certain disorders involving the immune mechanism; Translations: [Personal history of diseases of blood and blood-forming organs] 10-29-2023 Episodic Other hereditary and degenerative nervous system conditions (5 sources) Restless legs; Translations: [Restless legs syndrome] 10-29-2023 Chronic Other hereditary and degenerative nervous system conditions (5 sources) Restless legs syndrome; Translations: [Restless legs syndrome (RLS)] 10-29-2023 Chronic Other male genital disorders (3 sources) H/O: male genital disorder; Translations: [Personal history of other diseases of male genital organs] Onset: 08-31-2023 Episodic Other male genital disorders (5 sources) History of prostatitis 08-31-2023 Episodic Other nervous system disorders (5 sources) Sleep-wake schedule disorder, delayed phase type; Translations: [Circadian rhythm sleep disorder, delayed sleep phase type] 10-29-2023 Chronic Other nervous system disorders (5 sources) Circadian rhythm sleep disorder, delayed sleep phase type; Translations: [Circadian rhythm sleep disorder, delayed sleep phase type] 10-29-2023 Chronic Other non-traumatic joint disorders (1 source) Pain in right hip; Translations: [Pain in right hip] Onset: 08-04-2024 Episodic Other non-traumatic joint disorders (1 source) Pain in left hip; Translations: [Pain in left hip] Onset: 08-04-2024 Episodic Other nutritional; endocrine; and metabolic disorders (5 sources) Overweight in adulthood with body mass index of 25 or more but less than 30; Translations: [Body mass index (BMI) 25.0-25.9, adult] 10-29-2023 Episodic Other nutritional; endocrine; and metabolic disorders (5 sources) Body mass index (BMI) 25.0-25.9, adult; Translations: [Body Mass Index 25.0-25.9, adult] 10-29-2023 Episodic Residual codes; unclassified (5 sources) Obstructive sleep apnea syndrome; Translations: [Obstructive sleep apnea (adult) (pediatric)] 10-29-2023 Chronic Residual codes; unclassified (5 sources) Sleep apnea; Translations: [Sleep apnea, unspecified] 10-29-2023 Chronic Residual codes; unclassified (3 sources) Periodic limb movement disorder; Translations: [Periodic limb movement disorder] 10-29-2023 Chronic Residual codes; unclassified (5 sources) REM sleep behavior disorder; Translations: [REM sleep behavior disorder] 10-29-2023 Chronic Residual codes; unclassified (5 sources) Obstructive sleep apnea (adult) (pediatric); Translations: [Obstructive sleep apnea (adult)(pediatric)] 10-29-2023 Chronic Residual codes; unclassified (5 sources) Periodic limb movement disorder; Translations: [Periodic limb movement disorder] 10-29-2023 Chronic Residual codes; unclassified (5 sources) REM sleep behavior disorder; Translations: [REM sleep behavior disorder] 10-29-2023 Chronic Residual codes; unclassified (1 source) Sleep apnea, unspecified; Translations: [Sleep apnea, unspecified] Onset: 10-15-2023 Chronic Residual codes; unclassified (2 sources) Periodic leg movements of sleep ; Translations: [Periodic limb movement disorder] 10-29-2023 Chronic Spondylosis; intervertebral disc disorders; other back problems (4 sources) Backache; Translations: [Radiculopathy, site unspecified] 06-06-2024 Episodic Unclassified (12 sources) Finding of sensation of bladder 03-22-2021 Urinary tract infections (1 source) Urinary tract infectious disease; Translations: [Urinary tract infection, site not specified] Onset: 02-23-2024 Episodic Past or Other Problems Problem Classification Problem Date Documented Da te Episodic/Chronic Malaise and fatigue (1 source) Other fatigue; Translations: [Other fatigue] Onset: 10-29-2023 Episodic Other nutritional; endocrine; and metabolic disorders (1 source) Personal history of other endocrine, nutritional and metabolic disease; Translations: [Personal history of other endocrine, nutritional and metabolic disease] Onset: 10-29-2023 Episodic Results Test Name Value Interpretation Reference Range Facil ity X-ray reportOrdered By: Michael Mullins on 08-04-2024 Study report [facility] [address] [place] [address] XRay Report Signed Patient: Robert Santos MR#: [id number] : 1945 Acct:[id number] Age/Sex: 78 / M ADM Date: 5 Loc: [facility] Room: Type: [facility] Attending Dr: Sreekanth Mark II, MD Copies to: Sreekanth Mark MD~ Ordering Provider: Sreekanth Mark MD Date of Service: 08/04/24 XR/XR hip BI w PEL1V: M25.551 - Pain in right hip 2 views both hips with single view pelvis plain film COMPARISON: None HISTORY: Bilateral hip pain for years. Worse on the right. Painful weightbearing ACUTE FINDINGS: None DEGENERATIVE CHANGE: Extensive lqnj-px-zlic contact and degeneration of the right hip. Moderate joint space narrowing of the left hip. No AVN. SOFT TISSUE FINDINGS: Unremarkable JOINT EFFUSION: None POSTOP CHANGES: None BONY MINERALIZATION: Adequate XR/XR hip BI w PEL1V IMPRESSION: Extensive wwai-pv-zzzd contact right hip degeneration. Extensive left hip degenerative change. Impression dictated by: Erickson Mullins M.D. 08/04/2024 5:34 PM Dictation Location: [place] [address] Transcribed By: [facility] 08/04/24 173 Dictated By: Erickson Mullins DO 08/04/24 1733 Signed By: 08/04/24 1734 [facility] XR hip BI w [id number] 08-05-19 XR hip BI w PEL1V [facility] [place] [address] XRay Report Signed Patient: Robert Santos MR#: [id number] : 1945 Acct:[id number] Age/Sex: 78 / M ADM Date: 08/04/24 Loc: [facility] Room: Type: [facility] Attending Dr: Sreekanth Mark II, MD Copies to: Sreekanth Mark MD Ordering Provider: Sreekanth Mark MD Date of Service: 08/04/24 XR/XR hip BI w PEL1V: M25.551 - Pain in right hip 2 views both hips with single view pelvis plain film COMPARISON: None HISTORY: Bilateral hip pain for years. Worse on the right. Painful weightbearing ACUTE FINDINGS: None DEGENERATIVE CHANGE: Extensive xfxv-bn-hesd contact and degeneration of the right hip. Moderate joint space narrowing of the left hip. No AVN. SOFT TISSUE FINDINGS: Unremarkable JOINT EFFUSION: None POSTOP CHANGES: None BONY MINERALIZATION: Adequate XR/XR hip BI w PEL1V IMPRESSION: Extensive baxy-mh-jikc contact right hip degeneration. Extensive left hip degenerative change. Impression dictated by: Erickson Mullins M.D. 08/04/2024 5:34 PM Dictation Location: [employer] Transcribed By: [facility] 08/04/24 1734 Dictated By: Erickson Mullins DO 08/04/24 1733 Signed By: 08/04/24 1734 [facility] Ambulatory Visit Summaryon Ambulatory Visit Summary Ambulatory Visit Summary ROBERT SANTOS :1945 Visit Date:03/01/2024 Ambulatory Visit Instructions Your Care Team Attending Physician - CHIRAG Narayanan APRN, [place] [facility] Primary Care Physician - Gregoria Truong DO This Is Your Medications List acetaminophen (acetaminophen 325 mg Tab) atorvastatin budesonide/formoterol /glycopyrrolate (Breztri Aerosphere inhalation aerosol) busPIRone (busPIRone 10 mg Tab) cholecalciferol (cholecalciferol 1000 intl units oral tablet) cyanocobalamin (cyanocobalamin 1000 mcg oral tablet) doxycycline (doxycycline hyclate 100 mg Cap) finasteride (finasteride 5 mg Tab) gabapentin (gabapentin 300 mg Cap) guaifenesin (guaifenesin 400 mg oral tablet) levetiracetam (levetiracetam 500 mg Tab) lidocaine topical (lidocaine 5% patch) melatonin (melatonin 3 mg Tab) montelukast (montelukast 10 mg Tab) multivitamin with minerals (Centrum Silver) sertraline Procedures Performed Cataract, Colonoscopy, Procedure on back, Surgery. What to do next Scheduled Follow-Up Appointments Thursday 1:45 PM EDT With: JOHNATHAN ALEGRIA, Dov Duron Where: [facility] [address] [address]- Medications What How Much When Instructions Unchanged acetaminophen (acetaminophen 325 mg Tab) 1 Tablets By Mouth 4 times a day as needed for as needed for pain Unchanged atorvastatin 40 Milligram By Mouth Once a day (at bedtime) Unchanged budesonide/ formoterol/ glycopyrrolate (Breztri Aerosphere inhalation aerosol) Inhalation 2 times a day Unchanged busPIRone (busPIRone 10 mg Tab) 2 Tablets By Mouth 2 times a day with food for anxiety Unchanged cholecalciferol (cholecalciferol 1000 intl units oral tablet) 3 Tablets By Mouth Every day Unchanged cyanocobalamin (cyanocobalamin 1000 mcg oral tablet) 1 Tablets By Mouth Every day Unchanged doxycycline (doxycycline hyclate 100 mg Cap) 1 Capsules By Mouth 2 times a day Duration: 7 Days may substitute hyclate for monohydrate based on availability Unchanged finasteride (finasteride 5 mg Tab) By Mouth Every day Unchanged gabapentin (gabapentin 300 mg Cap) 1 Capsules By Mouth Once a day (at bedtime) Unchanged guaifenesin (guaifenesin 400 mg oral tablet) 1 Tablets By Mouth Every 4 hours as needed for as needed for cough Unchanged levetiracetam (levetiracetam 500 mg Tab) 1 Tablets By Mouth Every day Unchanged lidocaine topical (lidocaine 5% patch) Transdermal Every day Unchanged melatonin (melatonin 3 mg Tab) 2 Tablets By Mouth Once a day (at bedtime) as needed for for insomnia Unchanged montelukast (montelukast 10 mg Tab) By Mouth Every day Unchanged multivitamin with minerals (Centrum Silver) By Mouth Every day Unchanged sertraline 200 Milligram By Mouth Every day Allergies Flomax (Hypotension) Problems Ongoing - Any problem that you are currently receiving treatment for. 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 Please share your experience with us by completing your survey. We appreciate your feedback and thank you for choosing us for your care. [facility] C Urineon 02-26-2024 Bacteria identified Cx Nom (U) Microbiology PROCEDURE: Urine Culture [R1] SOURCE: U Cath BODY SITE: COLLECTED DATE/TIME: 02/23/2024 10:28 EST RECEIVED DATE/TIME: 02/23/2024 15:23 EST START DATE/TIME: 02/23/2024 15:23 EST FREE TEXT SOURCE: cath CIC Orolinda SENIOR SOUS CHEF, FISCAL ANALYST-C, Orzech SENIOR SOUS CHEF, FISCAL ANALYST-C, Lashawn X Lashawn X FINAL REPORTS Final Report [] Verified Date/Time: 02/26/2024 08:46 EST 2,000 cfu/ml Enterococcus faecalis SUSCEPTIBILITY RESULTS LEGEND: S=Susceptible, N/R=Not Reported, Blank=Data not available, or drug not advisable or tested, I=Intermediate, ESBL=Extended spectrum beta-lactamase, R=Resistant, TFG=Thymidine-depende nt strain, DIEGO=Beta-lactamase positive, JASON=mcg/m;(mg/L), S*=Predicted susceptible interp, R*=Predicted resistant interp Entfaeca Antibiotic JASON Dilutn JASON Interp Ampicillin <=2 S Ciprofloxacin 2 I Daptomycin <=1 S Levofloxacin 4 I Linezolid <=2 S Nitrofurantoin <=32 S Penicillin 0.25 S Rifampin >2 R Tetracycline <=4 S Vancomycin 1 S Performing Locations R1: This test was performed at: [facility], [address] [place] [address], [id number] , [place], Normal [facility] Comment on above: Performed By: #### [id number] #### [facility] [address] [place] [id number] Urology Office/Clinic Noteon 02-23-2024 Urology Office/Clinic Note Urology Office/Clinic Note Chief Complaint uti symptoms HPI Staff Pt here for possible uti. Pt does CIC qod. Previous Dx: urinary retention, BPH with urinary obstruction, urge incontinence, history of prostatitis *finasteride 5mg qd patient states that he stopped cathing on Thursday due to severe burning when doing so, states that he has no other symptoms. Denies any increased urgency or frequency, only urinates 3-4x day. History of Present Illness I have reviewed and verified the staff HPI to be accurate for this encounter. Portions of this record may have been created with voice recognition artificial intelligence software, specifically [employer], Stellar and or CardiaLen. Substitutions may have occurred due to the inherent limitations of voice recognition and artificial intelligence software. Review of Systems PHQ Score Initial Depression Screen Score: 3 SCORE Physical Exam Vitals & Measurements HR: 73(Peripheral) BP: 98/71 HT: 69 in HT: 176 cm WT: 75 kg WT: 165.347 lb BMI: 24.21 General: Well developed, well nourished, in no acute distress. Assessment/Plan PRW pt 1. UTI (urinary tract infection) (N39.0: Urinary tract infection, site not specified) Patient complains of pain with cathing, severe burning. Has not cath in 3 days, voids 3-4 times on his own. Feels like he overall does empty well. He notes that he last voided approximately 2 hours ago and has a random bladder scan of 322 mL in office today. See #2 UA today with small leukocytes, no blood. Will treat for UTI at this time and send for culture. If culture is negative, would recommend extended course for prostatitis which patient does have a history of. -Sent for culture today, contact patient if needing to change treatment course. -Start cipro 500 mg BID x 7 days, Discussed SEs, rx sent 2. Urinary retention (R33.9: Retention of urine, unspecified) Patient is supposed to CIC 4 times daily. However, recently stopped this due to discomfort with cathing, likely related to #1. cath placed in office today due to random bladder scan of 322, patient unable to provide urine specimen. Initial output of approximately 300 cc from Calloway catheter. Did discuss with patient keeping Calloway during duration of infection treatment and removal once he has recovered. Patient does agree at this time. -Maintain Calloway at this time -schedule nurse visit for 1 week for cath removal Ordered: [id number] Measure Post Void residual urine and/or bladder capacity by US- non-imaging 3. BPH with urinary obstruction (N40.1: Benign prostatic hyperplasia with lower urinary tract symptoms) Previously has failed tamsulosin and terazosin due to syncope, hypotension. IPSS 32, QoL 6 Patient currently unhappy with his urinary symptoms at this time given #1. Currently taking finasteride 5 mg daily. Tolerating well without side effects. Does not wish to make any changes at this time -Continue finasteride 4. Urge incontinence (N39.41: Urge incontinence) Patient notes that this occurs when he puts off urge to void. Voiding every 2 hours which keeps this at a minimum for him. -Continue timed voids 5. History of prostatitis (Z87.438: Personal history of other diseases of male genital organs) tx 07/22/23 w/ levaquin 500 mg qd x 30 days with resolution of symptoms Patient complained of pain/pressure/discomf ort under his scrotum that radiates into the testicles, bladder, up to his lower abdomen for several weeks Other obstructive and reflux uropathy (N13.8: Other obstructive and reflux uropathy) Orders: ciprofloxacin, 500 mg = 1 tab(s), Oral, q12hr, X 7 day(s), # 14 tab(s), Refills(s) 0, Pharmacy: [id number], 176, cm, 02/23/24 10:05:00 EST, Height/Length Dosing, 75, kg, 02/23/24 10:05:00 EST, Weight Dosing Urine Culture Urnls Dip Stick Auto w/o Microscopy POC 59267 Urnls Dip Stick Auto w/o Microscopy POC 41470 Follow-up No qualifying data available Patient Education Acute Urinary Retention, Male Benign Prostatic Hyperplasia Problem List/Past Medical History Ongoing 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 Normal [facility] Comment on above: Result Comment: Elec tronically Signed By: CHIRAG Narayanan APRN, Lashawn Frias\.br\Date and Time Signed: 02/23/24 10:37 EST Ambulatory Visit Summaryon 1 Ambulatory Visit Summary Ambulatory Visit Summary ROBERT SANTOS :1945 Visit Date:12/14/2023 Ambulatory Visit Instructions Your Diagnosis Urinary retention BPH with urinary obstruction Urge incontinence History of prostatitis Your Care Team Attending Physician - JOHNATHAN ALEGRIA, Dov Duron Primary Care Physician - Gregoria Truong DO This Is Your Medications List Contact prescribing physician if questions or concerns acetaminophen (acetaminophen 325 mg Tab) atorvastatin budesonide/formoterol /glycopyrrolate (Breztri Aerosphere inhalation aerosol) busPIRone (busPIRone 10 mg Tab) cholecalciferol (cholecalciferol 1000 intl units oral tablet) cyanocobalamin (cyanocobalamin 1000 mcg oral tablet) finasteride (finasteride 5 mg Tab) gabapentin (gabapentin 300 mg Cap) guaifenesin (guaifenesin 400 mg oral tablet) levetiracetam (levetiracetam 500 mg Tab) lidocaine topical (lidocaine 5% patch) melatonin (melatonin 3 mg Tab) montelukast (montelukast 10 mg Tab) multivitamin with minerals (Centrum Silver) sertraline Procedures Performed Cataract, Colonoscopy, Procedure on back, Surgery. Discharge Vitals Heart Rate (Peripheral) 82 Blood Pressure 118/62 Height 176 cm Height 69 in Weight 75 kg Weight 165 lb BMI 24.21 What to do next Scheduled Follow-Up Appointments Thursday 1:45 PM EDT With: Dov MARTIN MD Where: [facility] [address] [place] [address] You Need to Schedule the Following Appointments Follow Up with Dov MARTIN MD, URL When: Comments: 1 yr (no labs) Where: [facility] [address], [place] [address] [phone] Medications What How Much When Instructions Unchanged acetaminophen (acetaminophen 325 mg Tab) 1 Tablets By Mouth 4 times a day as needed for as needed for pain Contact prescribing physician if questions or concerns Unchanged atorvastatin 40 Milligram By Mouth Once a day (at bedtime) Contact prescribing physician if questions or concerns Unchanged budesonide/ formoterol/ glycopyrrolate (Breztri Aerosphere inhalation aerosol) Inhalation 2 times a day Contact prescribing physician if questions or concerns Unchanged busPIRone (busPIRone 10 mg Tab) 2 Tablets By Mouth 2 times a day with food for anxiety Contact prescribing physician if questions or concerns Unchanged cholecalciferol (cholecalciferol 1000 intl units oral tablet) 3 Tablets By Mouth Every day Contact prescribing physician if questions or concerns Unchanged cyanocobalamin (cyanocobalamin 1000 mcg oral tablet) 1 Tablets By Mouth Every day Contact prescribing physician if questions or concerns Unchanged finasteride (finasteride 5 mg Tab) By Mouth Every day Contact prescribing physician if questions or concerns Unchanged gabapentin (gabapentin 300 mg Cap) 1 Capsules By Mouth Once a day (at bedtime) Contact prescribing physician if questions or concerns Unchanged guaifenesin (guaifenesin 400 mg oral tablet) 1 Tablets By Mouth Every 4 hours as needed for as needed for cough Contact prescribing physician if questions or concerns Unchanged levetiracetam (levetiracetam 500 mg Tab) 1 Tablets By Mouth Every day Contact prescribing physician if questions or concerns Unchanged lidocaine topical (lidocaine 5% patch) Transdermal Every day Contact prescribing physician if questions or concerns Unchanged melatonin (melatonin 3 mg Tab) 2 Tablets By Mouth Once a day (at bedtime) as needed for for insomnia Contact prescribing physician if questions or concerns Unchanged montelukast (montelukast 10 mg Tab) By Mouth Every day Contact prescribing physician if questions or concerns Unchanged multivitamin with minerals (Centrum Silver) By Mouth Every day Contact prescribing physician if questions or concerns Unchanged sertraline 200 Milligram By Mouth Every day Contact prescribing physician if questions or concerns Allergies Flomax (Hypotension) Problems Ongoing - Any problem that you are currently receiving treatment for. 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 Please share your experience with us by completing your survey. We appreciate your feedback and thank you for choosing us for your care. Education Materials Urinary Incontinence Urinary incontinence refers to a condition in which a person is unable to control where and when to pass urine. A person with this condition will urinate involuntarily. This means that the person urinates when he or she does not mean to. What are the causes? This condition may be caused by: ? Medicines. ? Infections. ? Constipation. ? (more content not included)... Normal [facility] Urology Office/Clinic Noteon 12-14-2023 Urology Office/Clinic Note Urology Office/Clinic Note Chief Complaint 3 mth f/u HPI Staff 78 yr old here for 3 mth f/u ( no labs ) Dx: prostatitis, BPH with obstruction, urinary retention. *Finasteride 5mg qd CIC still- every other day.pt states he is nsble to urinate for us today Dysuria: couple weeks ago, but nothing lately Incomplete bladder emptying: unsure, he feels he empties it out, but when he Caths he has a good amount, no pain or bloating. Hematuria: no Frequency: q2-3hrs Urgency: yes Nocturia: q2hrs Stream: weak mostly Leaking: yes Post void dripping: yes Wearing pads/ Depends: no Urge incontinence: yes, used to be only when traveling, but feels he will be wearing depends all the time soon Stress incontinence: no Incontinence without Sensory Awareness: yes Abdominal pain: no Flank pain: at times, lower sharp pain both sides Sexual complaints: History of Present Illness Tests reviewed: none I have reviewed the previous health record information and history for this patient from Dr. Martin. I have reviewed and verified the staff HPI to be accurate for this encounter. Review of Systems PHQ Score Initial Depression Screen Score: 0 SCORE ROS - Provider Constitutional: denies weight loss, [...] HPI. Physical Exam Vitals & Measurements HR: 82(Peripheral) BP: 118/62 HT: 69 in HT: 176 cm WT: 75 kg WT: 165 lb BMI: 24.21 General Appearance: alert, no distress, well nourished, well developed male. Assessment/Plan 1. Urinary retention (R33.9: Retention of urine, unspecified) PVR (cc): 07/22/23 - 94 Recommended pt to decrease CIC qd to qod given previous highest output volume was 11oz. Highest output with CIC qod is 11 oz. Advised pt output remains stable compared to prior. -Cont CIC qod -F/u in 1 year 2. BPH with urinary obstruction (N40.1: Benign prostatic hyperplasia with lower urinary tract symptoms) Neurology consult 05/16/21 - Failed Flomax due to fainting and Terazosin due to hypotension in the past. Not to restart either alpha nacho.[1] Taking Finasteride 5 mg qd. Reports weak but steady stream when voiding on own. [place] Flomax worked well but unable to tolerate. -Cont Finasteride wo changes. [facility]. 3. Urge incontinence (N39.41: Urge incontinence) Reports leakage if he does not go to bathroom as soon as he gets the urge. Voiding q2hrs during the day. Has limited fluid intake. Not bothersome enough to warrant medication. -Cont timed voids q2hrs 4. History of prostatitis (Z87.438: Personal history of other diseases of male genital organs) Completed Levaquin 500mg qd x 30 days at prior OV. Denies gross hematuria or burning with urination. Follow-up With When Contact Information JOHNATHAN ALEGRIA, Dov Duron, URL [facility] [address], [place] [phone] Additional Instructions: 1 yr (no labs) Patient Education Urinary Incontinence I, Mai Sheppard, personally scribed for Dr. Martin on 12/14/2023 15:28:26. . Documentation recorded by the scribe, Mai Sheppard, accurately reflects the services(s) I performed and decisions made by me. Authenticated by Dr. Martin on 12/14/2023 15:30:01. 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 Normal [facility] Comment on above: Result Comment: Elec tronically Signed By: Dov MARTIN MD\.br\Date and Time Signed: 12/14/23 15:30 EDT\.br\Electronically Co-Signed By: Mai Sheppard\.br\Date and Time Co-Signed: 12/14/23 15:28 EDT Automated basophil %Ordered By: Coy Hylton on 10-29-2023 Basophils/100 WBC (Bld) 0.6 % Normal . [facility] Comment on above: Performed By: #### F E and TIBC, CBC, DALTON #### [facility] [address] [place] [address] Automated basophil countOrde red By: Coy Hylton on 10-29-2023 Basophils (Bld) [#/Vol] 0.1 10*3/uL Normal 0.0-0.2 [facility] Comment on above: Result Comment: PERF ORMED BY: [place] [address] PATHOLOGIST METAL SORTER BLAKE MATHUR M.D. Performed By: #### F E and TIBC, CBC, DALTON #### [facility] [address] [place] [address] Automated blood monocyte cou ntOrdered By: Coy Hylton on 10-29-2023 Monocytes (Bld) [#/Vol] 0.7 10*3/uL Normal 0.0-0.8 [facility] Comment on above: Performed By: #### F E and TIBC, CBC, DALTON #### [address] Automated eosinophil %Ordere d By: Coy Hylton on 10-29-2023 Eosinophils/100 WBC (Bld) 3.3 % Normal . [facility] Comment on above: Performed By: #### F E and TIBC, CBC, DALTON #### [address] Automated eosinophil countOr dered By: Coy Hylton on 10-29-2023 Eosinophils (Bld) [#/Vol] 0.3 10*3/uL Normal 0.0-0.45 [facility] Comment on above: Performed By: #### F E and TIBC, CBC, DALTON #### [address] Automated monocyte %Ordered By: Coy Hylton on 10-29-2023 Monocytes/100 WBC (Bld) 7.2 % Normal . [facility] Comment on above: Performed By: #### F E and TIBC, CBC, DALTON #### [address] Automated neutrophil %Ordere d By: Coy Hylton on 10-29-2023 Neutrophils/100 WBC (Bld) 75.7 % Normal . [facility] Comment on above: Performed By: #### F E and TIBC, CBC, DALTON #### [address] Complete Blood Count Auto Di ffon 10-29-2023 Mean Corpuscular HGB Conc 33.8 g/dL Normal 32.5-35.6 [facility] Comment on above: Performed By: #### F E and TIBC, CBC, DALTON #### [address] NRBC% 0.1 /100{WBC} Normal 0-0.5 [facility] Comment on above: Performed By: #### F E and TIBC, CBC, DALTON #### [address] Erythrocyte distribution wid th [Ratio] by Automated countOrdered By: Coy Hylton on 10-29-2023 Erythrocyte distribution width (RBC) [Ratio] 14.4 % Normal 12.0-14.8 [facility] Comment on above: Performed By: #### F E and TIBC, CBC, DALTON #### [address] Erythrocytes [#/volume] in B lood by Automated countOrdered By: Coy Hylton on 10-29-2023 RBC (Bld) [#/Vol] 4.52 10*6/uL Normal 3.90-5.60 [facility] Comment on above: Performed By: #### F E and TIBC, CBC, DALTON #### [address] Ferritin [Mass/volume] in Se rum or PlasmaOrdered By: Coy Hylton on 10-29-2023 Ferritin [Mass/Vol] 100.1 ng/mL Normal 23.9-336.2 [facility] Comment on above: Result Comment: PERF ORMED BY: [place] [address] PATHOLOGIST METAL SORTER BLAKE MATHUR M.D. Performed By: #### F E and TIBC, CBC, DALTON #### [address] Hematocrit [Volume Fraction] of Blood by Automated countOrdered By: Coy Hylton on 10-29-2023 Hematocrit (Bld) [Volume fraction] 41.0 % Normal 38.8-50.0 [facility] Comment on above: Performed By: #### F E and TIBC, CBC, DALTON #### [address] Hemoglobin [Mass/volume] in BloodOrdered By: Coy Hylton on 10-29-2023 Hemoglobin (Bld) [Mass/Vol] 13.9 g/dL Normal 13.0-17.0 [facility] Comment on above: Performed By: #### F E and TIBC, CBC, [place]TON #### [place] [address] [place] Iron [Mass/volume] in Serum or PlasmaOrdered By: Coy Hylton on 10-29-2023 Iron [Mass/Vol] 132 ug/dL Normal 50-212 [facility] Comment on above: Performed By: #### F E and TIBC, CBC, DALTON #### [facility] [address] Iron and TIBC Profileon 10-01 % Iron Saturation 38.9 % Normal 20-50 [facility] Comment on above: Performed By: #### F E and TIBC, CBC, DALTON #### [facility] [address] Total Iron Binding Capacity 339 ug/dL Normal 255-450 [facility] Comment on above: Performed By: #### F E and TIBC, CBC, DALTON #### [facility] [address] Iron binding capacity [Mass/ volume] in Serum or PlasmaOrdered By: Coy Hylton on 10-29-2023 Iron binding capacity [Mass/Vol] 339 ug/dL 255-450 [facility] Iron saturation [Mass Fracti on] in Serum or PlasmaOrdered By: Coy Hylton on 10-29-2023 Iron saturation [Mass fraction] 38.9 % 20-50 [facility] Leukocytes [#/volume] correc diamond for nucleated erythrocytes in Blood by Automated counOrdered By: Coy Hylton on 10-29-2023 WBC corrected for nucl RBC Auto (Bld) [#/Vol] 10.1 10*3/uL 4.1-10.5 [facility] Leukocytes [#/volume] in Blo od by Automated countOrdered By: Coy Hylton on 10-29-2023 WBC (Bld) [#/Vol] 10.1 10*3/uL Normal 4.1-10.5 [facility] Comment on above: Performed By: #### F E and TIBC, CBC, DALTON #### [facility] [address] [place] [address] [place] Lymphocytes [#/volume] in Bl ood by Automated countOrdered By: Coy Hylton on 10-29-2023 Lymphocytes (Bld) [#/Vol] 1.3 10*3/uL Normal 1.00-4.8 [facility] Comment on above: Performed By: #### F E and TIBC, CBC, DALTON #### [address] Lymphocytes/100 leukocytes i n Blood by Automated countOrdered By: Coy Hylton on 10-29-2023 Lymphocytes/100 WBC (Bld) 13.2 % Normal . [facility] Comment on above: Performed By: #### F E and TIBC, CBC, DALTON #### [address] MCH [Entitic mass] by Automa diamond countOrdered By: Coy Hylton on 10-29-2023 MCH (RBC) [Entitic mass] 30.7 pg Normal 27.5-35.2 [facility] Comment on above: Performed By: #### F E and TIBC, CBC, DALTON #### [address] MCHC Auto (RBC) [Mass/Vol]Or dered By: Coy Hylton on 10-29-2023 MCHC (RBC) [Mass/Vol] 33.8 g/dL 32.5-35.6 [facility] MCV [Entitic volume] by Auto mated countOrdered By: Coy Hylton on 10-29-2023 MCV (RBC) [Entitic vol] 90.7 fL Normal 83.5-101 [facility] Comment on above: Performed By: #### F E and TIBC, CBC, DALTON #### [address] Neutrophils [#/volume] in Bl ood by Automated countOrdered By: Coy Hylton on 10-29-2023 Neutrophils (Bld) [#/Vol] 7.7 10*3/uL Normal 1.8-7.7 [facility] Comment on above: Performed By: #### F E and TIBC, CBC, DALTON #### [address] Nucleated erythrocytes [Pres ence] in Blood by Automated countOrdered By: Coy Hylton on 10-29-2023 Nucleated RBC Auto Ql (Bld) 0.1 /100{WBC} 0-0.5 [facility] Platelet mean volume [Entiti c volume] in Blood by Automated countOrdered By: Coy Hylton on 10-29-2023 Platelet mean volume (Bld) [Entitic vol] 9.5 fL Normal 6.6-10.1 [facility] Comment on above: Performed By: #### F E and TIBC, CBC, DALTON #### [facility] [address] Platelets [#/volume] in Bloo d by Automated countOrdered By: Coy Hylton on 10-29-2023 Platelets (Bld) [#/Vol] 173 10*3/uL Normal 150-450 [facility] Comment on above: Performed By: #### F E and TIBC, CBC, DALTON #### [facility] [address] Transferrin [Mass/volume] in Serum or PlasmaOrdered By: Coy Hylton on 10-29-2023 Transferrin [Mass/Vol] 242 mg/dL Normal 203-362 [facility] Comment on above: Performed By: #### F E and TIBC, CBC, DALTON #### [facility] [address] [place] [address] Ambulatory Visit Summaryon 0 08-31-2023 Ambulatory Visit Summary Ambulatory Visit Summary ROBERT SANTOS :1945 Visit Date:08/31/2023 Ambulatory Visit Instructions Your [...] Follow-Up Appointments Thursday 1:45 PM EDT With: JOHNATHAN ALEGRIA, Dov Duron Where: [facility] Urology Office/Clinic Noteon 08-31-2023 Urology [...] Dov Duron, URL [facility] [address] , [place] [phone] Additional Instructions: 3 mos Patient Education Benign Prostatic Hyperplasia I, Mai Sheppard, personally scribed for Dr. Martin on 08/31/2023 14:29:37. . Documentation recorded by the Mai murphy, accurately reflects the services(s) I performed and [...] virus vaccine, inactivated 12/19/2021 Recorded SARS-CoV-2 (COVID-19) [id number] 12/19/2021 Recorde (more content not included)... Normal [facility] Comment on above: Result Comment: Elec tronically Signed By: Dov MARTIN MD\.br\Date and Time Signed: 08/31/23 14:31 EDT\.br\Electronically Co-Signed By: Mai Sheppard.br\Date and Time Co-Signed: 08/31/23 14:30 EDT Ambulatory Visit Summaryon 0 07-22-2023 Ambulatory Visit Summary ROBERT SANTOS :1945 Visit Date:07/22/2023 Ambulatory Visit Instructions Your [...] Follow-Up Appointments Thursday 1:15 PM EDT With: Dov MARTIN MD Where: [facility] Ambulatory Visit Summary ROBERT SANTOS :1945 Visit Date:07/22/2023 Ambulatory Visit Instructions Your [...] ALEGRIA, Dov Duron Where: [facility] Patient Educationon 07-22-19 Patient Education Infectious Disease [...] these instructions at home: Medicines ? Take [id number]-[id number] and prescription medicines only as told by [...] Where to find more information ? National [place] of Diabetes and Digestive and Kidney Diseases: (more content not included)... Normal [facility] Urology Office/Clinic Noteon 07-22-2023 Urology Office/Clinic Note [...] Contact Information NATALIA DANIEL, GREGORIA Sahni, URL [address] [facility] [place] [address] Additional Instructions: Keep August appt Patient Education Prostatitis Documentation recorded by the jeffrey Cortes accurately reflects the services(s) I performed and decisions made by me. Authenticated by Gregoria Fisher PA-C on 07/22/2023 15:14:10. Kalee Sorensen, personally scribed for Jacinta Fisher PA-C on [...] PRN levetiracet (more content not included)... Normal [facility] Comment on above: Result Comment: Elec tronically Signed By: GREGORIA FISHER PA-C\.br\Date and Time Signed: 07/22/23 15:14 EDT\.br\Electronically Co-Signed By: Kalee Cortes.br\Date and Time Co-Signed: 07/22/23 14:52 EDT Physician Orderon 07-16-2023 Physician Order [id number] [facility] Retail - Clinical Noteon Retail - Clinical Note [id number] .[id number] [facility] CBC AUTO DIFFon 12-19-2020 BASO # 0.1 103/ul Normal 0.0-0.1 [facility] Comment on above: Performed By: #### C BC #### [facility] [address] [place] [address] Dr. Julio Cesar rGijalva Basophils/100 WBC (Bld) 0.7 % Normal 0.2-2.0 [facility] Comment on above: Performed By: #### C BC #### [facility] [address] [place] [address] Dr. Julio Cesar Grijalva EO # 0.3 103/ul Normal 0.0-0.7 [facility] Comment on above: Performed By: #### C BC #### [facility] [address] [place] [address] Dr. Julio Cesar Grijalva Eosinophils/100 WBC (Bld) 3.4 % Normal 0.9-7.0 [facility] Comment on above: Performed By: #### C BC #### [facility] [address] [place] [address] Dr. Julio Cesar Grijalva Erythrocyte distribution width (RBC) [Ratio] 13.2 % Normal 11.0-15.0 [facility] Comment on above: Performed By: #### C BC #### [facility] [address] [place] [address] Dr. Julio Cesar Grijalva Hematocrit (Bld) [Volume fraction] 38.2 % Critically low 42.0-54.0 [facility] Comment on above: Performed By: #### C BC #### [facility] [address] [place] [address] Dr. Julio Cesar Grijalva Hemoglobin (Bld) [Mass/Vol] 12.4 g/dL Critically low 14.0-18.0 [facility] Comment on above: Performed By: #### C BC #### [facility] [address] [place] [address] Dr. Julio Cesar Grijalva IG # 0.02 10e3/ul Normal 0.00-0.03 [facility] Comment on above: Performed By: #### C BC #### [facility] [address] [place] [address] Dr. Julio Cesar Grijalva IG % 0.3 % Normal 0.0-0.5 [facility] Comment on above: Performed By: #### C BC #### [facility] [address] [place] [address] Dr. Julio Cesar Grijalva LYMPH # 1.1 103/ul Critically low 1.2-3.8 [facility] Comment on above: Performed By: #### C BC #### [facility] [address] [place] [address] Dr. Julio Cesar Grijalva Lymphocytes/100 WBC (Bld) 14.5 % Critically low 20.5-60.0 [facility] Comment on above: Performed By: #### C BC #### [facility] [address] [place] [address] Dr. Julio Cesar Grijalva MANUAL DIFF REQ NO Normal [facility] Comment on above: Performed By: #### C BC #### [facility] [address] [place] [address] Dr. Julio Cesar Grijalva MCH (RBC) [Entitic mass] 30.5 pg Normal 25.9-34.0 [facility] Comment on above: Performed By: #### C BC #### [facility] [address] [place] [address] Dr. Julio Cesar Grijalva MCHC (RBC) [Mass/Vol] 32.5 g/dL Normal 29.9-35.2 [facility] Comment on above: Performed By: #### C BC #### [facility] [address] [place] [address] Dr. Julio Cesar Grijalva MCV (RBC) [Entitic vol] 93.9 fL Normal 80.0-94.0 [facility] Comment on above: Performed By: #### C BC #### [facility] [address] [place] [address] Dr. Julio Cesar Grijalva MONO # 0.5 103/ul Normal 0.3-0.8 [facility] Comment on above: Performed By: #### C BC #### [facility] [address] [place] [address] Dr. Julio Cesar Grijalva Monocytes/100 WBC (Bld) 5.9 % Normal 1.7-12.0 [facility] Comment on above: Performed By: #### C BC #### [facility] [address] [place] [address] Dr. Julio eCsar Grijalva NEUT # 5.8 103/ul Normal 1.4-6.5 [facility] Comment on above: Performed By: #### C BC #### [facility] [address] [place] [address] Dr. Julio Cesar Grijalva Neutrophils/100 WBC (Bld) 75.2 % Critically high 43.0-75.0 [facility] Comment on above: Performed By: #### C BC #### [facility] [address] [place] [address] Dr. Julio Cesar Grijalva Platelet mean volume (Bld) [Entitic vol] 10.7 fL Normal 9.5-13.5 [facility] Comment on above: Performed By: #### C BC #### [facility] [address] [place] [address] Dr. Julio Cesar Grijalva PLT 237 103/ul Normal 150-450 [facility] Comment on above: Performed By: #### C BC #### [facility] [address] [place] [address] Dr. Julio Cesar Grijalva RBC 4.07 106/ul Critically low 4.70-6.10 [facility] Comment on above: Performed By: #### C BC #### [facility] [address] [place] [address] Dr. Julio Cesar Grijalva WBC 7.7 103/ul Normal 4.0-11.0 [facility] Comment on above: Performed By: #### C BC #### [facility] [address] [place] [address] Dr. Julio Cesar Grijalva PROF 14(COMP METB)on 12-19- 021 Albumin [Mass/Vol] 2.9 g/dL Critically low 3.5-5.0 [facility] Comment on above: Performed By: #### C MP #### [facility] [address] [place] [address] Dr. Julio Cesar Grijalva Albumin/Globulin [Mass ratio] 0.8 {ratio} Normal [facility] Comment on above: Performed By: #### C MP #### [facility] [address] [place] [address] Dr. Julio Cesar Grijalva ALP [Catalytic activity/Vol] 121 U/L Normal 38-126 [facility] Comment on above: Performed By: #### C MP #### [facility] [address] [place] [address] Dr. Julio Cesar Girjalva ALT [Catalytic activity/Vol] 18 U/L Critically low 21-72 [facility] Comment on above: Performed By: #### C MP #### [facility] [address] [address] [address] Julio Cesar Grijalva Anion gap [Moles/Vol] 9.8 mmol/L Normal [facility] Comment on above: Performed By: #### C MP #### [facility] [address] [address] [address] Julio Cesar Grijalva AST [Catalytic activity/Vol] 17 U/L Normal 17-59 [facility] Comment on above: Performed By: #### C MP #### [facility] [address] [address] [address] Julio Cesar Grijalva Bilirubin [Mass/Vol] 0.4 mg/dL Normal 0.2-1.3 [facility] Comment on above: Performed By: #### C MP #### [facility] [address] [address] [address] Julio Cesar Grijalva Calcium [Mass/Vol] 8.5 mg/dL Normal 8.4-10.2 [facility] Comment on above: Performed By: #### C MP #### [facility] [address] [address] [address] Julio Cesar Grijalva Chloride [Moles/Vol] 102 mmol/L Normal 98-107 [facility] Comment on above: Performed By: #### C MP #### [facility] [address] [address] [address] Julio Cesar Grijalva CO2 [Moles/Vol] 29.0 mmol/L Normal 22.0-30.0 [facility] Comment on above: Performed By: #### C MP #### [facility] [address] [address] [address] Julio Cesar Grijalva Creatinine [Mass/Vol] 0.73 mg/dL Normal 0.66-1.25 [facility] Comment on above: Performed By: #### C MP #### [facility] [address] [address] [address] Julio Cesar Grijalva EGFR-AF POLISH >60 Normal >=60 [facility] Comment on above: Performed By: #### C MP #### [facility] [address] [address] [address] Julio Cesar Grijalva EGFR-NON AF POLISH >60 Normal >=60 [facility] Comment on above: Performed By: #### C MP #### [facility] [address] [address] [address] Julio Cesar Grijalva Globulin (S) [Mass/Vol] 3.6 g/dL Normal [facility] Comment on above: Performed By: #### C MP #### [facility] [address] [address] [address] Julio Cesar Grijalva Glucose [Mass/Vol] 122 mg/dL Critically high 74-106 [facility] Comment on above: Performed By: #### C MP #### [facility] [address] [place] [address] Dr. Julio Cesar Grijalva Potassium [Moles/Vol] 3.8 mmol/L Normal 3.4-5.0 [facility] Comment on above: Performed By: #### C MP #### [facility] [address] [place] [address] Dr. Julio Cesar Grijalva Protein [Mass/Vol] 6.5 g/dL Normal 6.1-8.2 [facility] Comment on above: Performed By: #### C MP #### [facility] [address] [place] [address] Dr. Julio Cesar Grijalva Sodium [Moles/Vol] 137 mmol/L Normal 137-145 [facility] Comment on above: Performed By: #### C MP #### [facility] [address] [place] [address] Dr. Julio Cesar Grijalva Urea nitrogen [Mass/Vol] 10.0 mg/dL Normal 9.0-20.0 [facility] Comment on above: Performed By: #### C MP #### [facility] [address] [place] [address] Dr. Julio Cesar Grijalva Urea nitrogen/Creatinine [Mass ratio] 13.7 mg/mg Normal [facility] Comment on above: Performed By: #### C MP #### [facility] [address] [place] [address] Dr. Julio Cesar Grijalva Vital Signs Date Time Vital Sign Value Performing Clinician Facility 08-04-2024 14:32-0400 Body height 180.34 cm Gregoria Truong MD Work Phone: [facility] 08-04-2024 14:32-0400 Body mass index (BMI) [Ratio] 25 kg/m2 Gregoria Truong MD Work Phone: [facility] 08-04-2024 14:32-0400 Body weight 81.19 kg Gregoria Truong MD Work Phone: [facility] 06-06-2024 13:52-0400 Body height 180.34 cm Gregoria Truong MD Work Phone: [facility] 06-06-2024 13:52-0400 Body mass index (BMI) [Ratio] 24.8 kg/m2 Gregoria Truong MD Work Phone: [facility] 06-06-2024 13:52-0400 Body weight 80.9 kg Gregoria Truong MD Work Phone: [facility] 06-06-2024 13:52-0400 Diastolic blood pressure 50 mm[Hg] Gregoria Truong MD Work Phone: [facility] 06-06-2024 13:52-0400 Heart rate 86 /min Gregoria Truong MD Work Phone: [facility] 06-06-2024 13:52-0400 SaO2% (BldA) [Mass fraction] 94 % Gregoria Truong MD Work Phone: [facility] 06-06-2024 13:52-0400 Systolic blood pressure 94 mm[Hg] Gregoria Truong MD Work Phone: [facility] 04-28-2024 14:17-0500 Body height 179.07 cm [facility] 04-28-2024 14:17-0500 Body mass index (BMI) [Ratio] 25.4 kg/m2 [facility] 04-28-2024 14:17-0500 Body weight 81.64 kg [facility] 04-28-2024 14:17-0500 Diastolic blood pressure 52 mm[Hg] [facility] 04-28-2024 14:17-0500 Heart rate 80 /min [facility] 04-28-2024 14:17-0500 SaO2% (BldA) [Mass fraction] 94 % [facility] 04-28-2024 14:17-0500 Systolic blood pressure 99 mm[Hg] [facility] 02-23-2024 10:04-0500 Blood Pressure Location Lashawn Orzech [facility] 02-23-2024 10:04-0500 Diastolic blood pressure 71 mm[Hg] Lashawn Orzech [facility] 02-23-2024 10:04-0500 Heart rate 73 /min Lashawn Orzech [facility] 02-23-2024 10:04-0500 Systolic blood pressure 98 mm[Hg] Lashawn Orzech [facility] 12-14-2023 13:57-0400 Blood Pressure Location Dov MARTIN [facility] 12-14-2023 13:57-0400 Diastolic blood pressure 62 mm[Hg] Dov MARTIN [facility] 12-14-2023 13:57-0400 Heart rate 82 /min Dov MARTIN [facility] 12-14-2023 13:57-0400 Systolic blood pressure 118 mm[Hg] Dov MARTIN [facility] 10-29-2023 13:12-0400 Body height 179.07 cm MD Gregoria Truong Work Phone: [facility] 10-29-2023 13:12-0400 Body mass index (BMI) [Ratio] 25.4 kg/m2 MD Gregoria Truong Work Phone: [facility] 10-29-2023 13:12-0400 Body weight 81.64 kg MD Gregoria Truong Work Phone: [facility] 10-29-2023 13:12-0400 Diastolic blood pressure 65 mm[Hg] MD Gregoria Truong Work Phone: [facility] 10-29-2023 13:12-0400 Heart rate 79 /min MD Gregoria Truong Work Phone: [facility] 10-29-2023 13:12-0400 SaO2% (BldA) [Mass fraction] 96 % MD Gregoria Truong Work Phone: [facility] 10-29-2023 13:12-0400 Systolic blood pressure 103 mm[Hg] MD Gregoria Truong Work Phone: [facility] 08-31-2023 13:16-0400 Blood Pressure Location Dov MARTIN [facility] 08-31-2023 13:16-0400 Body temperature 98.6 [degF] Dov MARTIN [facility] 08-31-2023 13:16-0400 Diastolic blood pressure 67 mm[Hg] Dov MARTIN [facility] 08-31-2023 13:16-0400 Heart rate 62 /min Dov MARTIN [facility] 08-31-2023 13:16-0400 Respiratory rate 16 /min Dov MARTIN [facility] 08-31-2023 13:16-0400 Systolic blood pressure 105 mm[Hg] Dov MARTIN [facility] 07-22-2023 14:19-0400 Blood Pressure Location GREGORIA FISHER [facility] 07-22-2023 14:19-0400 Body temperature 97.88 [degF] GERGORIA NATALIA [facility] 07-22-2023 14:19-0400 Diastolic blood pressure 61 mm[Hg] GREGORIA NATALIA [facility] 07-22-2023 14:19-0400 Heart rate 75 /min GREGORIA NATALIA [facility] 07-22-2023 14:19-0400 Systolic blood pressure 110 mm[Hg] GREGORIA NATALIA [facility] 12-15-2022 14:00-0400 Blood Pressure Location Dov MARTIN [facility] 12-15-2022 14:00-0400 Diastolic blood pressure 79 mm[Hg] Dov MARTIN [facility] 12-15-2022 14:00-0400 Heart rate 68 /min Dov MARTIN [facility] 12-15-2022 14:00-0400 Respiratory rate 16 /min Dov MARTIN [facility] 12-15-2022 14:00-0400 Systolic blood pressure 128 mm[Hg] Dov MARTIN [facility] 08-18-2022 14:47-0400 Blood Pressure Location Dov MARTIN [facility] 08-18-2022 14:47-0400 Diastolic blood pressure 65 mm[Hg] Dov MARTIN [facility] 08-18-2022 14:47-0400 Heart rate 65 /min Dov MARTIN [facility] 08-18-2022 14:47-0400 Respiratory rate 16 /min Dov MARTIN [facility] 08-18-2022 14:47-0400 Systolic blood pressure 105 mm[Hg] Dov MARTIN [facility] 08-19-2021 12:06-0400 Blood Pressure Location Dov MARTIN [facility] 08-19-2021 12:06-0400 Diastolic blood pressure 66 mm[Hg] Dov MARTIN [facility] 08-19-2021 12:06-0400 Heart rate 78 /min Dov MARTIN [facility] 08-19-2021 12:06-0400 Respiratory rate 16 /min Dov MARTIN [facility] 08-19-2021 12:06-0400 Systolic blood pressure 111 mm[Hg] [facility] En[facility] Encounter Date Encounter Type Care Provider Facility Start: 08-04-2024 End: 08-04-2024 ambulatory Gregoria Truong MD Work Phone: [facility] Work Phone: Start: 08-04-2024 End: 08-04-2024 Patient encounter procedure Gregoria Truong MD Work Phone: [facility] Work Phone: Start: 08-04-2024 End: 08-04-2024 Patient encounter procedure Gregoria Truong MD Work Phone: [facility] Start: 08-04-2024 End: 08-04-2024 ambulatory Sreekanth Mark II Facility:[facility] Start: 06-06-2024 End: 06-06-2024 Patient encounter procedure Gregoria Truong MD Work Phone: [facility] Work Phone: Start: 04-28-2024 End: 04-28-2024 ambulatory [facility] Work Phone: Start: 04-28-2024 End: 04-28-2024 Patient encounter procedure [facility] Work Phone: Start: 03-01-2024 End: 03-01-2024 ambulatory Lashawn X Orzech Facility:[facility] Start: 03-01-2024 End: 03-01-2024 Patient encounter procedure Lashawn X Orzech [facility] Start: 02-23-2024 End: 02-23-2024 ambulatory Lashawn X Orzech Facility:[facility] Start: 02-23-2024 End: 02-23-2024 Lab Drop off Lashawn X Orzech [facility] Start: 02-23-2024 End: 02-23-2024 ambulatory Lashawn X Orzech Facility:[facility] Start: 02-23-2024 End: 02-23-2024 Patient encounter procedure Lashawn X Orzech [facility] Start: 12-14-2023 End: 12-14-2023 ambulatory Dov Domi JOHNATHAN Facility:[facility] Start: 12-14-2023 End: 12-14-2023 Patient encounter procedure Dov MARTIN [facility] Start: 10-29-2023 Non-patient / Non-visit MD Jacinta Truong Work Phone: [facility] Work Phone: Start: 10-29-2023 End: 10-29-2023 Patient encounter procedure MD Gregoria Truong Work Phone: [facility] Work Phone: Start: 10-29-2023 End: 10-29-2023 ambulatory MD Gregoria Truong Work Phone: [facility] Work Phone: Start: 10-29-2023 End: 10-29-2023 ambulatory MD Gregoria Truong Work Phone: [facility] Work Phone: Start: 10-29-2023 End: 10-29-2023 Patient encounter procedure MD Gregoria Truong Work Phone: [facility] Work Phone: Start: 10-15-2023 End: 10-15-2023 Patient encounter procedure MD Gregoria Truong Work Phone: [facility] Work Phone: Start: 10-15-2023 End: 10-15-2023 ambulatory MD Gregoria Truong Work Phone: [facility] Work Phone: Start: 08-31-2023 End: 08-31-2023 ambulatory Dov MARTIN Facility:[facility] Start: 08-31-2023 End: 08-31-2023 Patient encounter procedure Dov MARTIN [facility] Start: 07-22-2023 End: 07-22-2023 ambulatory GREGORIA FISHER Facility:[facility] Start: 07-22-2023 End: 07-22-2023 Patient encounter procedure GREGORIA FISHER [facility] Start: 07-16-2023 End: 07-16-2023 ambulatory GREGORIA FISHER Facility:[facility] Start: 07-16-2023 End: 07-16-2023 Patient encounter procedure GREGORIA FISHER [facility] Start: 06-29-2023 End: 06-29-2023 ambulatory Dov MARTIN Facility:[facility] Start: 06-29-2023 End: 06-29-2023 Patient encounter procedure Dov MARTIN [facility] Start: 03-12-2023 End: 03-12-2023 ambulatory GREGORIA TRUONG Not Available Start: 12-15-2022 End: 12-15-2022 Patient encounter procedure Dov MARTIN [facility] Start: 08-18-2022 End: 08-18-2022 Patient encounter procedure Dov MARTIN [facility] Start: 02-17-2022 End: 02-17-2022 Patient encounter procedure Dov MARTIN [facility] Start: 08-19-2021 End: 08-19-2021 Patient encounter procedure Dov MARTIN [facility] Start: 12-19-2020 End: 12-19-[address] DOCTOR SANCHEZ Facility:[facility] Start: 05-29-2020 End: 05-30-[address] DOCTOR SANCHEZ Facility:[facility] Start: 05-07-2020 End: 05-08-[address] DOCTOR SANCHEZ Facility:[facility] Procedures Date Procedure Procedure Detail Performing Clinician Start: 08-04-2024 Plain x-ray of pelvi s and lower extremity Gregoria Truong MD Work Phone: Cataract (disorder) Dov MARTIN Colonoscopy Dov MARTIN Procedure on back Dov MARIE Surgery (qualifier value) Johnathon MARTIN Comment on above: To back and neck Plan of Treatment Date Care Activity Detail Author Start: 12-19-2024 ambulatory Ambulatory Facility:[facility] Start: 08-04-2024 Plain x-ray of pelvi s and lower extremity XR hip BI w [id number] [facility] Start: 08-04-2024 XR Pelvis and Hip - bilateral [facility] Immunizations Immunization Date Immunization Notes Care Provider Vesta willoughby 12-19-2021 influenza virus vacc ine, unspecified formulation Dov AMRTIN [facility] 12-19-2021 SARS-CoV-2 (COVID-19 ) [id number] Dov MARTIN [facility] 01-03-2021 influenza virus vacc ine, unspecified formulation Dov MARTIN [facility] 01-03-2021 SARS-CoV-2 (COVID-19 ) mRNA BNT-162b2 vax Dov MARTIN [facility] 05-29-2020 SARS-CoV-2 (COVID-19 ) mRNA BNT-162b2 vax Dov MARTIN [facility] 05-07-2020 SARS-CoV-2 (COVID-19 ) mRNA BNT-162b2 vax Dov MARTIN [facility] 12-15-2018 influenza virus vacc ine, unspecified formulation Dov MARTIN [facility] 11-19-2017 influenza virus vacc ine, unspecified formulation Dov MARTIN [facility] 07-09-2017 tetanus toxoid, redu pancho diphtheria toxoid, and acellular pertussis vaccine, adsorbed Dov MARTIN [facility] 11-11-2016 influenza virus vacc ine, unspecified formulation Dov MARTIN [facility] 11-30-2014 pneumococcal conjuga te vaccine, 13 valent Dov MARTIN [facility] 11-01-2012 pneumococcal polysaccharide vaccine, 23 valent Dov MARTNI [facility] Payers Date Payer Category Payer Unknown [id number] 2022 Unknown [id number] 1960 Medicare [id number] 1960 Self-pay 1945 Unknown [id number] 2.16.84 [id number] 1945 Unknown [id number] 2.16.84 [id number] 1944 Unknown [id number] 2.16.8 40.1.589601.3.579.2.727 1944 Unknown [id number] 2.16.8 40.1.343954.3.579.2.727 1944 Unknown [id number] 2.16.8 40.1.329599.3.579.2.727 1944 Unknown [id number] 2.16.8 40.1.831122.3.579.2.727 1944 Unknown [id number] 2.16.8 40.1.230529.3.579.2.727 1944 Unknown [id number] 2.16.8 40.1.102054.3.579.2.727 1944 Unknown [id number] 2.16.8 40.1.930821.3.579.2.727 1944 Unknown [id number] 2.16.8 40.1.646021.3.579.2.727 1945 Unknown [id number] 2.16.8 40.1.260135.3.579.2.727 Medicare Medicare [id number] Unknown [id number] 2.16.84 0.1.971988.3.579.2.593 Unknown [id number] 2.16.84 0.1.218086.3.579.2.593 Unknown [facility] Health Claims [id number] Unknown [id number] 2.16.8 40.1.172465.3.579.2.531 Unknown [id number] 2.16.8 40.1.457226.3.579.2.531 Unknown [id number] 2.16.8 40.1.072522.3.579.2.531 Social History Date Type Detail Facility Start: 08-19-2021 End: 02-23-2024 Tobacco smoking status Ex-smoker (finding) [facility] Sex Assigned At Male [facility] Tobacco smoking status Never [facility] Start: 1945 Sex Assigned At Male [facility] Tobacco smoking stat [facility] Unknown if ever smoked [facility] Work Phone: Start: 04-28-2024 End: 2024 Sex Male (finding) [facility] Functional Status Date Assessment Result Facility 02-23-2024 Functional Status N/A [facility] 12-14-2023 Functional Status N/A [facility] 08-31-2023 Functional Status N/A [facility] 07-22-2023 Functional Status N/A [facility] 12-15-2022 Functional Status N/A [facility] 08-18-2022 Functional Status N/A [facility] 02-17-2022 Functional Status N/A [facility] 08-19-2021 Functional Status N/A [facility] Clinical Notes 08-19-2021 to 06-06-2024 Note Date & Type Note Facility 06-06-2024 Evaluation note Diagnosis Onset Date Resolution Back pain with radiculopathy acute June 06, 2024 1:40pm BMI 25.0-25.9,adult acute June 06, 2024 1:40pm History of iron deficiency anemia acute June 06 1:40pm Obstructive sleep apnea acute A pri2024 1:40pm PLMD (periodic limb movement disorder) acute June 06 1:40pm PTSD (post-traumatic stress disorder) acute June 06, 2024 1:40pm 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 This condition can happen suddenly and last for a short time. If left untreated, it can become long-term (chronic) and result in kidney damage or other serious complications. What are the causes? This condition may be caused by: Obstruction or narrowing of the tube that drains the bladder (urethra). This may be caused by surgery, problems with nearby organs, or injury to the bladder or urethra. Problems with the nerves in the bladder. Tumors in the area of the pelvis, bladder, or urethra. Certain medicines. Bladder or urinary tract infection. Constipation. What increases the risk? This condition is more likely to develop in older men. As men age, their prostate may become largerand may start to press or squeeze on the bladder or the urethra. Other chronic health conditions can increase the risk of acute urinary retention. These include: Diseases such as multiple sclerosis. Spinal cord injuries. Diabetes. Degenerative cognitive conditions, such as delirium or dementia. Psychological conditions. A man may hold his urine due to trauma or because he does not want to usethe bathroom. What are the signs or symptoms? Symptoms of this condition include: Trouble urinating. Pain in the lower abdomen. How is this diagnosed? This condition is diagnosed based on a physical exam and your medical history. You may also have other tests, including: An ultrasound of the bladder or kidneys or both. Blood tests. A urine analysis. Additional tests may be needed, such as a CT scan, MRI, and kidney or bladder function tests. How is this treated? Treatment for this condition may include: Medicines. Placing a thin, sterile tube (catheter) into the bladder to drain urine out of the body. This is called an indwelling urinary catheter. After it is inserted, the catheter is held in place with a small balloon that is filled with sterile water. Urine drains from the catheter into a collection bag outside of the body. Behavioral therapy. Treatment for other conditions. If needed, you may be treated in the hospital for kidney function problems or to manage other complications. Follow these instructions at home: Medicines Take ipyd-djn-juyrgwj and prescription medicines only as told by your health care provider. Avoid certain medicines, such as decongestants, antihistamines, and some prescription medicines. Do not take any medicine unless your health care provider approves. If you were prescribed an antibiotic medicine, take it as told by your health care provider. Do notstop using the antibiotic even if you start to feel better. General instructions Do not use any products that contain nicotine or tobacco. These products include cigarettes, chewing tobacco, and vaping devices, such as e-cigarettes. If you need help quitting, ask your health careprovider. Drink enough fluid to keep your urine pale yellow. If you have an indwelling urinary catheter, follow the instructions from your health care provider. Monitor any changes in your symptoms. Tell your health care provider about any changes. If instructed, monitor your blood pressure at home. Report changes as told by your health care provider. Keep all follow-up visits. This is important. Contact a health care provider if: You have uncomfortable bladder contractions that you cannot control (spasms). You leak urine with the spasms. Get help right away if: You have chills or a fever. You have blood in your urine. You have a catheter and the following happens: ?Your catheter stops draining urine. ?Your catheter falls out. Summary Acute urinary retention is a condition in which a person is unable to pass urine or can only pass alittle urine. If left untreated, this condition can result in kidney damage or other serious complications. An enlarged prostate may cause this condition. As men age, their prostate gland may become larger and may press or squeeze on the bladder or the urethra. Treatment for this condition may include medicines and placement of an indwelling urinary catheter. Monitor any changes in your symptoms. Tell your health care provider about any changes. This information is not intended to replace advice given to you by your health care provider. Make sure you discuss any questions you have with your health care provider. Document Revised: 11/07/2020 Document Reviewed: 11/07/2020 [employer] Patient Education 2023 [employer]. 02/23/2024 10:37:24 Benign Prostatic Hyperplasia Benign Prostatic Hyperplasia Benign prostatic hyperplasia (BPH) is an enlarged prostate gland that is caused by the normal agingprocess. The prostate may get bigger as a man gets older. The condition is not caused by cancer. The prostate is a walnut-sized gland that is involved in the production of semen. It is located in front of the rectum and below the bladder. The bladder stores urine. The urethra carries stored urine ou t of the body. An enlarged prostate can press on the urethra. This can make it harder to pass urine. The buildup of urine in the bladder can cause infection. Back pressure and infection may progress to bladder damage and kidney (renal) failure. What are the causes? This condition is part of the normal aging process. However, not all men develop problems from thiscondition. If the prostate enlarges away from the [...] urethra. Follow these instructions at home: Take wezk-wuu-cqmcwbv and prescription medicines only as told by [...] provider. Document Revised: 09/04/2021 Document Reviewed: 09/04/2021 [employer] Patient Education 2023 [employer]. [facility] 12-24-2024 NotePatient Education Urology Acute Urinary Retention, Male Acute urinary retention is a condition in which a person is unable to pass urine or can only pass alittle urine. This condition can happen suddenly and last for a short time. If left untreated, it can become long-term (chronic) and result in kidney damage or other serious complications. What are the causes? This condition may be caused by: ??? Obstruction or narrowing of the tube that drains the bladder (urethra). This may be caused by surgery, problems with nearby organs, or injury to the bladder or urethra. ??? Problems with the nerves in the bladder. ??? Tumors in the area of the pelvis, bladder, or urethra. ??? Certain medicines. ??? Bladder or urinary tract infection. ??? Constipation. What increases the risk? This condition is more likely to develop in older men. As men age, their prostate may become largerand may start to press or squeeze on the bladder or the urethra. Other chronic health conditions can increase the risk of acute urinary retention. These include: ??? Diseases such as multiple sclerosis. ??? Spinal cord injuries. ??? Diabetes. ??? Degenerative cognitive conditions, such as delirium or dementia. ??? Psychological conditions. A man may hold his urine due to trauma or because he does not want touse the bathroom. What are the signs or symptoms? Symptoms of this condition include: ??? Trouble urinating. ??? Pain in the lower abdomen. How is this diagnosed? This condition is diagnosed based on a physical exam and your medical history. You may also have other tests, including: ??? An ultrasound of the bladder or kidneys or both. ??? Blood tests. ??? A urine analysis. ??? Additional tests may be needed, such as a CT scan, MRI, and kidney or bladder function tests. How is this treated? Treatment for this condition may include: ??? Medicines. ??? Placing a thin, sterile tube (catheter) into the bladder to drain urine out of the body. This is called an indwelling urinary catheter. After it is inserted, the catheter is held in place with a small balloon that is filled with sterile water. Urine drains from the catheter into a collection bag outside of the body. ??? Behavioral therapy. ??? Treatment for other conditions. If needed, you may be treated in the hospital for kidney function problems or to manage other complications. Follow these instructions at home: Medicines ??? Take kgsh-oqj-ygxzwuc and prescription medicines only as told by your health care provider. Avoid certain medicines, such as decongestants, antihistamines, and some prescription medicines. Do nottake any medicine unless your health care provider approves. ??? If you were prescribed an antibiotic medicine, take it as told by your health care provider. Donot stop using the antibiotic even if you start to feel better. General instructions ??? Do not use any products that contain nicotine or tobacco. These products include cigarettes, chewing tobacco, and vaping devices, such as e-cigarettes. If you need help quitting, ask your health care provider. ??? Drink enough fluid to keep your urine pale yellow. ??? If you have an indwelling urinary catheter, follow the instructions from your health care provider. ??? Monitor any changes in your symptoms. Tell your health care provider about any changes. ??? If instructed, monitor your blood pressure at home. Report changes as told by your health care provider. ??? Keep all follow-up visits. This is important. Contact a health care provider if: ??? You have uncomfortable bladder contractions that you cannot control (spasms). ??? You leak urine with the spasms. Get help right away if: ??? You have chills or a fever. ??? You have blood in your urine. ??? You have a catheter and the following happens: ? Your catheter stops draining urine. ? Your catheter falls out. Summary ??? Acute urinary retention is a condition in which a person is unable to pass urine or can only pass a little urine. If left untreated, this condition can result in kidney damage or other serious complications. ??? An enlarged prostate may cause this condition. As men age, their prostate gland may become larger and may press or squeeze on the bladder or the urethra. ??? Treatment for this condition may include medicines and placement of an indwelling urinary catheter. ??? Monitor any changes in your symptoms. Tell your health care provider about any changes. This information is not intended to replace advice given to you by your health care provider. Make sure you discuss any questions you have with your health care provider. Document Revised: 11/07/2020 Document Reviewed: 11/07/2020 [email or web address] Patient Education ? 2023 [employer]. Benign Prostatic Hyperplasia Benign prostatic hyperplasia (BPH) is an enlarged prostate gland that is caused by the normal agingproc (more content not included)...[facility]10-14-2024 Hospital Discharge instructions Patient Education 12/14/2023 15:26:46 Urinary Incontinence Urinary Incontinence Urinary incontinence refers to a condition in which a person is unable to control where and when topass urine. A person with this condition will urinate involuntarily. This means that the person urinates when he or she does not mean to. What are the causes? This condition may be caused by: Medicines. Infections. Constipation. Overactive bladder muscles. Weak bladder muscles. Weak pelvic floor muscles. These muscles provide support for the bladder, intestine, and, in women,the uterus. Enlarged prostate in men. The prostate is a gland near the bladder. When it gets too big, it can pinch the urethra. With the urethra blocked, the bladder can weaken and lose the ability to empty properly. Surgery. Emotional factors, such as anxiety, stress, or post-traumatic stress disorder (PTSD). Spinal cord injury, nerve injury, or other neurological conditions. Pelvic organ prolapse. This happens in women when organs move out of place and into the vagina. This movement can prevent the bladder and urethra from working properly. What increases the risk? The following factors may make you more likely to develop this condition: Age. The older you are, the higher the risk. Obesity. Being physically inactive. and childbirth. Menopause. Diseases that affect the nerves or spinal cord. Long-term, or chronic, coughing. This can increase pressure on the bladder and pelvic floor muscles. What are the signs or symptoms? Symptoms may vary depending on the type of urinary incontinence you have. They include: A sudden urge to urinate, and passing urine involuntarily before you can get to a bathroom (urge incontinence). Suddenly passing urine when doing activities that force urine to pass, such as coughing, laughing, exercising, or sneezing (stress incontinence). Needing to urinate often but urinating only a small amount, or constantly dribbling urine (overflowincontinence). Urinating because you cannot get to the bathroom in time due to a physical disability, such as arthritis or injury, or due to a communication or thinking problem, such as Alzheimer's disease (functional incontinence). How is this diagnosed? This condition may be diagnosed based on: Your medical history. A physical exam. Tests, such as: ?Urine tests. ?X-rays of your kidney and bladder. ?Ultrasound. ?CT scan. ?Cystoscopy. In this procedure, a health care provider inserts a tube with a light and camera (cystoscope) through the urethra and into the bladder to check for problems. ?Urodynamic testing. These tests assess how well the bladder, urethra, and sphincter can store and release urine. There are different types of urodynamic tests, and they vary depending on what the test is measuring. To help diagnose your condition, your health care provider may recommend that you keep a log of when you urinate and how much you urinate. How is this treated? Treatment for this condition depends on the type of incontinence that you have and its cause. Treatment may include: Lifestyle changes, such as: ?Quitting smoking. ?Maintaining a healthy weight. ?Staying active. Try to get 150 minutes of moderate-intensity exercise every week. Ask your health care provider which activities are safe for you. ?Eating a healthy diet. ?Avoid high-fat foods, like fried foods. ?Avoid refined carbohydrates like white bread and white rice. ?Limit how much alcohol and caffeine you drink. ?Increase your fiber intake. Healthy sources of fiber include beans, whole grains, and fresh fruitsand vegetables. Behavioral changes, such as: ?Pelvic floor muscle exercises. ?Bladder training, such as lengthening the amount of time between bathroom breaks, or using the bathroom at regular intervals. ?Using techniques to suppress bladder urges. This can include distraction techniques or controlled breathing exercises. Medicines, such as: ?Medicines to relax the bladder muscles and prevent bladder spasms. ?Medicines to help slow or prevent the growth of a man's prostate. ?Botox injections. These can help relax the bladder muscles. Treatments, such as: ?Using pulses of electricity to help change bladder reflexes (electrical nerve stimulation). ?For women, using a medical transcription radiology to prevent urine leaks. This is a small, tampon-like, disposabledevice that is inserted into the urethra. ?Injecting collagen or carbon beads (bulking agents) into the urinary sphincter. These can help thicken tissue and close the bladder opening. ?Surgery. Follow these instructions at home: Lifestyle Limit alcohol and caffeine. These can fill your bladder quickly and irritate it. Keep yourself clean to help prevent odors and skin damage. Ask your health care provider about special skin creams and cleansers that can protect the skin from urine. Consider wearing pads or adult diapers. Make sure to change them regularly, and always change them right after experiencing incontinence. General instructions Take oaua-aqh-vvuyhgp and prescription medicines only as told by your health care provider. Use the bathroom about every 3 4 hours, even if you do not feel the need to urinate. Try to empty your bladder completely every time. After urinating, wait a minute. Then try to urinate again. Make sure you are in a relaxed position while urinating. If your incontinence is caused by nerve problems, keep a log of the medicines you take and the times you go to the bathroom. Keep all follow-up visits. This is important. Where to find more information National [place] of Diabetes and Digestive and Kidney Diseases: www.niddk.nih.gov [employer]: www.urologyhealth.org Contact a health care provider if: You have pain that gets worse. Your incontinence gets worse. Get help right away if: You have a fever or chills. You are unable to urinate. You have redness in your groin area or down your legs. Summary Urinary incontinence refers to a condition in which a person is unable to control where and when topass urine. This condition may be caused by medicines, infection, weak bladder muscles, weak pelvic floor muscles, enlargement of the prostate (in men), or surgery. Factors such as older age, obesity, and childbirth, menopause, neurological diseases, andchronic coughing may increase your risk for developing this condition. Types of urinary incontinence include urge incontinence, stress incontinence, overflow incontinence, and functional incontinence. This condition is usually treated first with lifestyle and behavioral changes, such as quitting smoking, eating a healthier diet, and doing regular pelvic floor exercises. Other treatment options include medicines, bulking agents, medical devices, electrical nerve stimulation, or surgery. This information is not intended to replace advice given to you by your health care provider. Make sure you discuss any questions you have with your health care provider. Document Revised: 09/21/2020 Document Reviewed: 09/21/2020 [employer] Patient Education 2023 [employer]. Follow Up Care 08/31/2023 14:32:35 With:JOHNATHAN ALEGRIA, Dov Duron, URL Address: [facility] [address], [place] [address] [phone] When: Unknown Comments:1 yr (no labs) [facility] [place] 10-14-2024 NotePatient Education Urology Urinary Incontinence Urinary incontinence refers to a condition in which a person is unable to control where and when topass urine. A person with this condition will urinate involuntarily. This means that the person urinates when he or she does not mean to. What are the causes? This condition may be caused by: ? Medicines. ? Infections. ? Constipation. ? Overactive bladder muscles. ? Weak bladder muscles. ? Weak pelvic floor muscles. These muscles provide support for the bladder, intestine, and, in women, the uterus. ? Enlarged prostate in men. The prostate is a gland near the bladder. When it gets too big, it can pinch the urethra. With the urethra blocked, the bladder can weaken and lose the ability to empty properly. ? Surgery. ? Emotional factors, such as anxiety, stress, or post-traumatic stress disorder (PTSD). ? Spinal cord injury, nerve injury, or other neurological conditions. ? Pelvic organ prolapse. This happens in women when organs move out of place and into the vagina. This movement can prevent the bladder and urethra from working properly. What increases the risk? The following factors may make you more likely to develop this condition: ? Age. The older you are, the higher the risk. ? Obesity. ? Being physically inactive. ? and childbirth. ? Menopause. ? Diseases that affect the nerves or spinal cord. ? Long-term, or chronic, coughing. This can increase pressure on the bladder and pelvic floor muscles. What are the signs or symptoms? Symptoms may vary depending on the type of urinary incontinence you have. They include: ? A sudden urge to urinate, and passing urine involuntarily before you can get to a bathroom (urge incontinence). ? Suddenly passing urine when doing activities that force urine to pass, such as coughing, laughing, exercising, or sneezing (stress incontinence). ? Needing to urinate often but urinating only a small amount, or constantly dribbling urine (overflow incontinence). ? Urinating because you cannot get to the bathroom in time due to a physical disability, such as arthritis or injury, or due to a communication or thinking problem, such as Alzheimer's disease (functional incontinence). How is this diagnosed? This condition may be diagnosed based on: ? Your medical history. ? A physical exam. ? Tests, such as: ? Urine tests. ? X-rays of your kidney and bladder. ? Ultrasound. ? CT scan. ? Cystoscopy. In this procedure, a health care provider inserts a tube with a light and camera (cystoscope) through the urethra and into the bladder to check for problems. ? Urodynamic testing. These tests assess how well the bladder, urethra, and sphincter can store andrelease urine. There are different types of urodynamic tests, and they vary depending on what the test is measuring. To help diagnose your condition, your health care provider may recommend that you keep a log of when you urinate and how much you urinate. How is this treated? Treatment for this condition depends on the type of incontinence that you have and its cause. Treatment may include: ? Lifestyle changes, such as: ? Quitting smoking. ? Maintaining a healthy weight. ? Staying active. Try to get 150 minutes of moderate-intensity exercise every week. Ask your healthcare provider which activities are safe for you. ? Eating a healthy diet. ? Avoid high-fat foods, like fried foods. ? Avoid refined carbohydrates like white bread and white rice. ? Limit how much alcohol and caffeine you drink. ? Increase your fiber intake. Healthy sources of fiber include beans, whole grains, and fresh fruits and vegetables. ? Behavioral changes, such as: ? Pelvic floor muscle exercises. ? Bladder training, such as lengthening the amount of time between bathroom breaks, or using the bathroom at regular intervals. ? Using techniques to suppress bladder urges. This can include distraction techniques or controlledbreathing exercises. ? Medicines, such as: ? Medicines to relax the bladder muscles and prevent bladder spasms. ? Medicines to help slow or prevent the growth of a man's prostate. ? Botox injections. These can help relax the bladder muscles. ? Treatments, such as: ? Using pulses of electricity to help change bladder reflexes (electrical nerve stimulation). ? For women, using a medical transcription radiology to prevent urine leaks. This is a small, tampon-like, disposable device that is inserted into the urethra. ? Injecting collagen or carbon beads (bulking agents) into the urinary sphincter. These can help thicken tissue and close the bladder opening. ? Surgery. Follow these instructions at home: Lifestyle ? Limit alcohol and caffeine. These can fill your bladder quickly and irritate it. ? Keep yourself clean to help prevent odors and skin damage. Ask your health care provider about special skin creams and cleansers that can protect the (more content not included)...[facility]07-01-2024 Hospital Discharge instructions Patient Education 08/31/2023 14:28:34 Benign Prostatic Hyperplasia Benign Prostatic Hyperplasia Benign prostatic hyperplasia (BPH) is an enlarged prostate gland that is caused by the normal agingprocess. The prostate may get bigger as a man gets older. The condition is not caused by cancer. The prostate is a walnut-sized gland that is involved in the production of semen. It is located in front of the rectum and below the bladder. The bladder stores urine. The urethra carries stored urine ou t of the body. An enlarged prostate can press on the urethra. This can make it harder to pass urine. The buildup of urine in the bladder can cause infection. Back pressure and infection may progress to bladder damage and kidney (renal) failure. What are the causes? This condition is part of the normal aging process. However, not all men develop problems from thiscondition. If the prostate enlarges away from the [...] urethra. Follow these instructions at home: Take xzhl-ady-rxhtqju and prescription medicines only as told by [...] provider. Document Revised: 09/04/2021 Document Reviewed: 09/04/2021 [employer] Patient Education 2022 [employer]. Follow Up Care 06/30/2023 10:20:51 With:JOHNATHAN ALEGRIA, Dov Duron, URL Address: [facility] [address], [place] [address]- [phone] When: Unknown [facility] 07-01-2024 NotePatient Education Urology Benign Prostatic Hyperplasia Benign prostatic hyperplasia (BPH) is an enlarged prostate gland that is caused by the normal agingprocess. The prostate may get bigger as a man gets older. The condition is not caused by cancer. The prostate is a walnut-sized gland that is involved in the production of semen. It is located in front of the rectum and below the bladder. The bladder stores urine. The urethra carries stored urine ou t of the body. An enlarged prostate can press on the urethra. This can make it harder to pass urine. The buildup of urine in the bladder can cause infection. Back pressure and infection may progress to bladder damage and kidney (renal) failure. What are the causes? This condition is part of the normal aging process. However, not all men develop problems from thiscondition. If the prostate enlarges away from the [...] urine that may remain in your bladder afteryou finish urinating. ? A digital rectal exam. [...] this procedure, a tool is inserted through theopening at the tip of the penis (urethra). [...] procedure uses radio frequencies to destroy and removea small amount of prostate tissue. ? Interstitial laser coagulation (ILC). This procedure uses a laser to destroy and remove a small amount of prostate tissue. ? Transurethral electrovaporization (TUVP). This procedure uses electrodes to destroy and remove a small amount of prostate tissue. ? Prostatic urethral lift. This procedure inserts an implant to push the lobes of the prostate awayfrom the urethra. Follow these instructions at home: ? Take cveb-nqo-qkekqtv and prescription medicines only as told by [...] You develop side effec (more content not included)...[facility]05-22-2024 Hospital Discharge instructions Patient Education 07/22/2023 14:52:00 Prostatitis Prostatitis Prostatitis is swelling or inflammation of the prostate gland, also called the prostate. This glandis about 1.5 inches wide and 1 inch [...] quickly and results from an acute bacterial infectionin the prostate gland. It is usually associated [...] when the body's disease-fighting system attacks healthy tissuein the body by mistake. Psychological factors. These [...] Follow these instructions at home: Medicines Take qank-pqr-wioinbk and prescription medicines only as told by your health care provider. If you were prescribed an antibiotic medicine, take it as told by your health care provider. Do notstop using the antibiotic even if you start to feel better. Managing pain and swelling Take sitz baths as directed by your health care provider. For a sitz bath, sit in warm water that is deep enough to cover your hips and buttocks. If directed, apply heat to the affected area as often as told by your health care provider. Use theheat source that your health care provider recommends, [...] important. Where to find more information National [place] of Diabetes and Digestive and Kidney Diseases: [...] depends on the type of prostatitis. Take iolm-zyw-vrrbsgr and prescription medicines only as told by your health care provider. Get help right away of you have chills, feel light-headed, feel like you may faint, cannot urinate,or have blood or blood clots in your urine. This information is not intended to replace advice given to you by your health care provider. Make sure you discuss any questions you have with your health care provider. Document Revised: 03/23/2020 Document Reviewed: 03/23/2020 [employer] Patient Education 2022 [employer]. Follow Up Care 07/21/2023 16:51:23 With:GREGORIA FISHER PA-C, URL Address: [facility] [place] [address] When: Unknown [facility] 10-16-2023 Hospital Discharge instructions Follow Up Care 12/15/2022 15:00:39 With:Dov MARTIN MD, URL Address: [facility] [address] [place] [address]- [phone] When: Unknown [facility] 10-16-2023 Hospital Discharge instructions Patient Education 12/15/2022 14:55:52 Clean Intermittent Catheterization, Male Clean Intermittent Catheterization, Male Clean intermittent catheterization (CIC) is a procedure to remove urine from the bladder by placinga small, flexible tube (catheter) into the bladder though the urethra. The urethra is a tube in thebody that carries urine from the bladder out [...] also help you to get the home caresupplies that are needed for this procedure. Supplies [...] CIC: To perform CIC, follow these steps: 1.Wash your hands with soap and water. If soap and water are not available, use hand [employer] cosmetics. 2.Clean your penis with soap and water. [...] pointing to the ceiling. You may wish toplace a waterproof mat or pad under you. [...] reusable catheter in a small bathroom. Take wagj-rvo-ovwrtxf and prescription medicines only as told by [...] to remove urine from the bladder by placinga small, flexible tube (catheter) into the bladder [...] provider. Document Revised: 12/23/2021 Document Reviewed: 12/23/2021 [employer] Patient Education 2022 [employer]. Follow Up Care 08/18/2022 15:53:30 With:JOHNATHAN ALEGRIA, Dov Duron, URL Address: [facility] [address] , [place] [address]- When:Within 6 Month(s) [facility] 06-19-2023 Hospital Discharge instructions Patient Education 08/18/2022 08:50:00 Benign Prostatic Hyperplasia Benign Prostatic Hyperplasia Benign prostatic hyperplasia (BPH) is an enlarged prostate gland that is caused by the normal agingprocess. The prostate may get bigger as a man gets older. The condition is not caused by cancer. The prostate is a walnut-sized gland that is involved in the production of semen. It is located in front of the rectum and below the bladder. The bladder stores urine. The urethra carries stored urine ou t of the body. An enlarged prostate can press on the urethra. This can make it harder to pass urine. The buildup of urine in the bladder can cause infection. Back pressure and infection may progress to bladder damage and kidney (renal) failure. What are the causes? This condition is part of the normal aging process. However, not all men develop problems from thiscondition. If the prostate enlarges away from the [...] urethra. Follow these instructions at home: Take rrld-jqv-atcsakk and prescription medicines only as told by [...] provider. Document Revised: 09/04/2021 Document Reviewed: 09/04/2021 [employer] Patient Education 2022 [employer]. Follow Up Care 02/17/2022 13:56:55 With:JOHNATHAN ALEGRIA, Dov Duron, URL Address: [facility] [address] [place] [address]- When: Unknown [facility] 12-19-2022 Hospital Discharge instructions Patient Education 02/17/2022 08:31:44 Benign Prostatic Hyperplasia Benign Prostatic Hyperplasia Benign prostatic hyperplasia (BPH) is an enlarged prostate gland that is caused by the normal agingprocess and not by cancer. The prostate is [...] urethra. Follow these instructions at home: Take dagu-mxr-uyyoqrz and prescription medicines only as told by [...] 02/16/2006 Document Revised: 01/11/2019 Document Reviewed: 03/23/2017 [employer] Patient Education 2020 [employer]. Follow Up Care 08/19/2021 12:49:49 With:JOHNATHAN ALEGRIA, DONAL Joshua Address: [facility] [address] , [place] [address]- When: Unknown [facility] 06-20-2022 Hospital Discharge instructions Patient Education 08/19/2021 12:24:35 Acute Urinary Retention, Male, Ileh-cp-Psdb Acute Urinary Retention, Male Acute urinary retention means that you cannot pee (urinate) at all, or that you pee too little and your bladder is not emptied completely. If it is not treated, it can lead to kidney damage or other serious problems. Follow these instructions at home: Take bynm-tdr-xfvlggf and prescription medicines only as told by [...] 08/04/2008 Document Revised: 05/05/2019 Document Reviewed: 03/20/2017 [employer] Patient Education 2020 [employer]. Follow Up Care 05/13/2021 12:38:46 With:JOHNATHAN ALEGRIA, Dov Duron, URL Address: [facility] [address], [place] [phone] When:02/18/2022 [facility] evaluation + Plan note Future Appointments Appointment Date:02/17/2022 11:30:00 AM Scheduled Provider:Dov MARTIN MD Location:[facility] Appointment Type:URO Office Visit [facility] evaluation + Plan note Future Appointments Appointment Date:08/18/2022 02:15:00 PM Scheduled Provider:Dov MARTIN MD Location:[facility] Appointment Type:URO Office Visit [facility] evaluation + Plan note Future Appointments Appointment Date:12/15/2022 01:45:00 PM Scheduled Provider:Dov MARTIN MD Location:[facility] Appointment Type:URO Office Visit [facility] evaluation + Plan note Future Appointments Appointment Date:06/29/2023 12:45:00 PM Scheduled Provider:Dov MARTIN MD [facility] Appointment Type:URO Office Visit [facility] evaluation + Plan note Future Appointments Appointment Date:08/31/2023 01:15:00 PM Scheduled Provider:Dov MARTIN MD Location:[facility] Appointment Type:URO Office Visit [facility] evaluation + Plan note Future Appointments Appointment Date:12/14/2023 01:45:00 PM Scheduled Provider:Dov MARTIN MD Location:[facility] Appointment Type:URO Office Visit [facility] evaluation + Plan note Future Appointments Appointment Date:12/19/2024 01:45:00 PM Scheduled Provider:Dov MARTIN MD Location:[facility] Appointment Type:URO Office Visit [facility] evaluation + Plan note Future Appointments Appointment Date:03/01/2024 11:00:00 AM Scheduled Provider: Location:[facility] Appointment Type:URO Nurse Visit Appointment Date:12/19/2024 01:45:00 PM Scheduled Provider:Dov MARTIN MD Location:[facility] Appointment Type:URO Office Visit [facility] evaluation + Plan note Future Appointments Appointment Date:03/01/2024 11:00:00 AM Scheduled Provider: Location:[facility] Appointment Type:URO Nurse Visit Appointment Date:12/19/2024 01:45:00 PM Scheduled Provider:[facility]ARTIN [facility] Office Visit Diagnostic Tests Pending * Urine Culture 02/23/24 [facility] Evaluation noteNo assessment information available [facility] Work Phone: Evaluation note* Diagnosis Onset Date Resolution Status BMI 25.0-25.9,adult acute Essential hypertension acute History of iron deficiency anemia acute Obstructive sleep apnea acut e PLMD (periodic limb movement disorder) acute PTSD (post-traumatic stress disorder) acute REM behavioral disorder acut e Restless leg syndrome acute Sleep phase syndrome, delayed acute [facility] Work Phone: Evaluation note* Diagnosis Onset Date Resolution Status Admit Date BMI 25.0-25.9,adult acute Febru ayde 2024 1:56pm Essential hypertension acute Fe bruary 2024 1:56pm History of iron deficiency anemia acute April 28 025 1:56pm Obstructive sleep apnea acute F ebruary 2024 1:56pm PLMD (periodic limb movement disorder) acute April 28 025 1:56pm PTSD (post-traumatic stress disorder) acute April 28 025 1:56pm REM behavioral disorder acute F ebruary 2024 1:56pm Restless leg syndrome acute Feb ruary 2024 1:56pm Sleep phase syndrome, delayed acute April 28, 2024 1:56pm [facility] Work Phone: Hospital course Narrative No data available for this section [facility] Hospital Discharge instructions No data available for this section [facility] progress note No data available for this section [facility] Summary Purpose Family History No Family History [...] for this section No Family History Records FoundNo Family History Records FoundNo Family History Records Found Advance Directives Advance Directive Response Recorded Date/ Time Advance Directives No August 04 9:33am Advance Directive Response Recorded Date/ Time Advance Directives No August 04 8:33am Advance Directive Response Recorded Date/ Time Advance Directives No June 06 2:38pm Chief Complaint and Reason for Visit Chief Complaint choking snoring/extr a EMG leads for RBD Chief Complaint choking snoring/extr a EMG leads for RBD Choking Snoring Extra EMR for rbd Z86.39 R53.83 Reason for Visit BMI 25.0-25.9,adult Essential hypertension History of iron deficiency anemia Obstructive sleep apnea PLMD (periodic limb movement disorder) PTSD (post-traumatic stress disorder) REM behavioral disorder Restless leg syndrome Sleep phase syndrome, delayed Chief Complaint choking snoring/extr a EMG leads for RBD Choking Snoring Extra EMR for rbd Z86.39 R53.83 choking snoring/extra EMG leads for RBD Reason for Visit BMI 25.0-25.9,adult Essential hypertension History of iron deficiency anemia Obstructive sleep apnea PLMD (periodic limb movement disorder) PTSD (post-traumatic stress disorder) REM behavioral disorder Restless leg syndrome Sleep phase syndrome, delayed Chief Complaint Admit Date RLS / 6months April 28, 2024 1:56pm Reason for Visit Admit Date BMI 25.0-25.9,adult April 28, 2024 1:56pm Essential hypertension April 28 1:56pm History of iron deficiency anemia Februa ry 2024 1:56pm Obstructive sleep apnea April 28, 2 025 1:56pm PLMD (periodic limb movement disorder) F ebruary 2024 1:56pm PTSD (post-traumatic stress disorder) Fe bruary 2024 1:56pm REM behavioral disorder April 28, 2 025 1:56pm Restless leg syndrome April 28 1:56pm Sleep phase syndrome, delayed April 032024 1:56pm Chief Complaint Admit Date RLS June 06, 2024 1:40 pm M25.551 - Pain in right hip August 04 12:04pm [facility] HIP PAIN WX August 04 2:17pm Reason for Visit Admit Date Back pain with radiculopathy June 06, 2024 1:40pm BMI 25.0-25.9,adult June 06, 2024 1:40 pm History of iron deficiency anemia June 06, 2024 1:40pm Obstructive sleep apnea June 06, 2024 1:40pm PLMD (periodic limb movement disorder) A pril 2024 1:40pm PTSD (post-traumatic stress disorder) Ap ril 2024 1:40pm REM behavioral disorder June 06, 2024 1:40pm Restless leg syndrome June 06, 2024 1: 40pm Sleep phase syndrome, delayed June 06, 2024 1:40pm Primary osteoarthritis of hips, bilatera l August 04, 2024 2:17pm Right foot drop August 04, 2024 2:17p m Additional Source Comments (unrecognized sect ion and content) No Status Records FoundNo Status Records FoundNo Status Records FoundNo Status Records FoundNo Status Records FoundNo Status Records Found INFORMATION SOURCE (unrecogn ized section and content) DATE CREATED AUTHOR 01/05/2021 [facility] DATE CREATED AUTHOR AUTHOR'S ORGANIZ ATION 03/14/2023 [facility] EPIC DATE CREATED AUTHOR AUTHOR'S ORGANIZ ATION 02/27/2024 [facility] DATE CREATED AUTHOR AUTHOR'S ORGANIZ ATION 03/02/2024 [facility] DATE CREATED AUTHOR AUTHOR'S ORGANIZ ATION 03/03/2024 [facility] DATE CREATED AUTHOR AUTHOR'S ORGANIZ ATION 2024 [facility] Care Team (unrecognized sect ion and content) Team Status: Active Member Role Status Dates Gregoria Truong MD Primary Care Provider Active Team Status: Inactive Member Role Status Dates Gregoria Truong MD Primary Care Provider Active Start: October 15, 2023 End: October 15, 2023 Jyoti Thompson MD Attending Provider Active Start: October 15, 2023 End: October 15, 2023 Team Status: Inactive Member Role Status Dates Gregoria Truong MD Primary Care Provider Active Start: October 15, 2023 End: October 15, 2023 Jyoti Thompson MD Referring Provider Active Start: October 15, 2023 End: October 15, 2023 Coy Hylton MD Attending Provider Active S tart: October 15, 2023 End: October 15, 2023 Team Status: Inactive Member Role Status Dates Gregoria Truong MD Primary Care Provider Active Start: October 29, 2023 End: October 29, 2023 Coy Hylton MD Attending Provider Active S tart: October 29, 2023 End: October 29, 2023 Jyoti Thompson MD Referring Provider Active Start: October 29, 2023 End: October 29, 2023 Team Status: Active Member Role Status Dates Moon Pittman ([facility]) , DO [facility] Primary Care Provider Active Start: September Coy Hylton MD Attending Provider Active S tart: October 29, 2023 Team Status: Inactive Member Role Status Dates Moon Pittman (Clinic) , DO [facility] Primary Care Provider Active Start: September End: October 29, 2023 Coy Hylton MD Attending Provider Active S tart: October 29, 2023 End: October 29, 2023 Team Status: Active Member Role Status Dates Gregoria Truong MD Primary Care Provider Active Start: October 29, 2023 Jyoti Thompson MD Referring Provider Active Start: October 29, 2023 Coy Hylton MD Attending Provider, Other Provider Active Start: October 29, 2023 Team Status: Inactive Member Role Status Dates Gregoria Truong MD Primary Care Provider Active Start: April 28, 2024 End: April 28, 2024 Annie Francis NP Attending Provider Active Start: April 28, 2024 End: April 28, 2024 Team Status: Inactive Member Role Status Dates Gregoria Truong MD Primary Care Provider Active Start: June 06, 2024 End: June 06, 2024 Annie Francis [employer] Attending Provider Active Start: June 06, 2024 End: June 06, 2024 Team Status: Active Member Role Status Dates Gregoria Truong MD Primary Care Provider Active Start: August 04, 2024 Sreekanth Mark II, MD Attending Provider Active Start: August 04, 2024 Team Status: Inactive Member Role Status Dates Gregoria Truong MD Primary Care Provider Active Start: August 04, 2024 End: August 04, 2024 Sreekanth Mark II, MD Attending Provider Active Start: August 04, 2024 End: August 04, 2024 Goals (unrecognized section and content) Goals may be documented in a n alternate section FOR RECORDS PERTAINING TO PATIENTS WHO ARE [...] BE BASED ON THE PRIMARY CLINICAL RECORDS. [facility] [employer] [facility]. provides no warranty or guarantee of the accuracy or completeness of information in this document.
== END 2024-08-10 12:19 | disposition home or self-care (01) ==
LOC: MRI 12:18
DX: M54.16 Radiculopathy, lumbar region (principal); M51.369 Other intervertebral disc degeneration, lumbar region without mention of lumbar back pain or lower extremity pain; M48.062 Spinal stenosis, lumbar region with neurogenic claudication
CPT/HCPCS: 72148

== ENCOUNTER 2024-11-18 13:44 | Outpatient (OUT) | payer OTHER, SELFPAY ==
--- OUTSIDE RECORDS SUMMARY | 2024-11-18 13:48 | XMS_ITS | CCD ---
Author Organization [facility] Care Team Providers Care Organic Search Lead Name Role Phone RADHAC, DR TYSON Primary [...] Primary Care Physician GREGORIA TRUONG Attending Unavailable MD Gregoria Truong Primary Care Provider MD Jay Jyoti Attending Provider [phone] MD Jay Jyoti Referring Provider MD Coy Hylton Attending Provider Toya (Clinic)DO Mustafa Primary Care Provider Lashawn Narayanan Admitting Unavailable Lashawn Narayanan Attending Unavailable Dov MARTIN Attending Unavailable Lashawn Narayanan Attending Unavailable Lashawn Narayanan Attending Unavailable Dov MARTIN Attending Unavailable Dov MARTIN Attending Unavailable Dov MARTIN Attending Unavailable GREGORIA FISHER Attending Unavailable GREGORIA FISHER Attending Unavailable Gregoria Truong MD Primary Care Provider Sreekanth Mark MD Attending Provider Gregoria Truong Primary Care Unavailable Coy Hylton Admitting Unavailable Coy Hylton Attending Unavailable Jyoti Thompson Referring Unavailable Coy Hylton Admitting Unavailable Coy Hylton Attending Unavailable Toya (Clinic)Moon Primary Care Sreekanth Lopes II Admitting Sreekanth Lopes II Attending Gregoria Carlin Primary Care Unavailable Gregoria Truong MD Primary Care Provider Sreekanth Mark MD Attending Provider Allergies Allergy Classification Reported Allergen(s) Allergy Type Date of Onset Reaction(s) Facility [facility]ren[facility]agon[facility] (1 source) tamsulosin; Translations: [tamsulosin] Drug Allergy Low blood pressure (disorder) [facility] (12 sources) tamsulosin; Translations: [tamsulosin] Drug Allergy Low blood pressure (disorder) [facility] (1 source) Terazosin Drug Allergy [facility] Repository Medications Current Medications Medication Drug Class(es) Dates Sig (Normalized) Sig (Original) acetaminophen 500 mg oral tablet (15 sources) Start: 08-04-2024 take 1 tablet by mouth every six hours as needed Acetaminophen (Tylenol Extra Strength) 500 mg tablet Active 500 MG PO Every 6 hours as needed August 04, 2024 12:00am Complies with drug therapy Start: 11-22-2020 take 1 tablet by dorys [...] Status: Ordered atorvastatin 40 mg oral tablet (18 sources) HMG-CoA Reductase Inhibitor Start: 07-09-2015 take 1 tablet by mouth once daily Atorvastatin 40 mg tablet Active 40 MG PO Daily October 29, 2023 12:00am Complies with drug therapy Breztri Aerosphere inhalation aerosol (5 sources) Start: 08-31-2023 take 1 puff(s) by inhalation twice daily Breztri Aerosphere inhalation aerosol puff(s), Inhalation, BID, Refill(s) 0 Start Date: 08/31/23 Status: Ordered 120 actuat budesonide 0.16 mg/actuat / formoterol fumarate 0.0048 mg/actuat / glycopyrrolate 0.009 mg/actuat metered dose inhaler (6 sources) Corticosteroid, beta2-Adrenergi c Agonist Start: 10-29-2023 Budesonide-Glycopy r-Formoterol (Breztri Aerosphere) 160-9-4.8 mcg/actuation HFA aerosol inhaler Active 2 INH INHALATION Twice daily October 29, 2023 12:00am Complies with drug therapy busPIRone hydrochloride 10 mg oral tablet (18 sources) Start: 10-29-2023 take 20 mg by mouth twice daily Buspirone Active 20 MG PO Twice daily October 29, 2023 12:00am Start: 11-22-2020 take 2 tablets by mo uth twice daily Buspirone 10 mg tablet Active 20 MG PO Twice daily October 29, 2023 12:00am Complies with drug therapy capsaicin 0.25 mg/ml topical cream (7 sources) Start: 11-22-2020 capsaicin topical 0.025% cream See Instructions, Refill(s) 0, apply 3 times a day to feet Start Date: 11/22/20 Status: Ordered carboxymethylcellulose sodium 5 mg/ml ophthalmic solution (1 source) Start: 08-04-2024 take 1 drop(s) into the eye(s) twice daily Carboxymethylcellulose Sodium 0.5 % dropperette Active 1 DROPS EYE-BOTH Twice daily August 04, 2024 12:00am Complies with drug therapy Carboxymethylcellulose Sodium 0.5 % dropperette (2 sources) Start: 08-04-2024 take 1 drop(s) into the eye(s) twice daily Carboxymethylcellulose Sodium 0.5 % dropperette Active 1 DROPS EYE-BOTH Twice daily August 04, 2024 12:00am Centrum Silver (12 sources) Start: 07-09-2015 Centrum Silver Oral, Daily, Refill(s) 0, Prophylaxis Start Date: 07/09/15 Status: Ordered cholecalciferol 0.025 mg oral capsule (15 sources) Vitamin D Start: 08-04-2024 take 1 capsule by mouth once daily Cholecalciferol (Vitamin D3) 25 mcg (1,000 unit) capsule Active 25 MCG PO Daily August 04, 2024 12:00am Complies with drug therapy Start: 11-22-2020 take 1 tablet by dorys [...] day(s), # 14 tab(s), Refills(s) 0, Pharmacy: [facility] [id number], 176, cm, 02/23/24 10:05:00 EST, Height/Length Dosing, 75, kg, 02/23/24 10:05:00 EST, Weight Dosing Start Date: 02/23/24 Stop Date: 03/01/24 Status: Ordered docusate sodium 100 mg oral capsule (10 sources) Start: 08-04-2024 take 1 capsule by mouth once daily Docusate Sodium 100 mg capsule Active 100 MG PO Daily August 04, 2024 12:00am Complies with drug therapy Start: 11-26-2020 take 1 capsule by mo [facility] twice daily docusate sodium 100 mg Cap [...] day(s), # 14 cap(s), Refills(s) 0, Pharmacy: [id number], 176, cm, 02/23/24 10:05:00 EST, Height/Length Dosing, 75, kg, 02/23/24 10:05:00 EST, Weight Dosing Start Date: 02/26/24 Stop Date: 03/04/24 Status: Ordered finasteride 5 mg oral tablet (18 sources) 5-alpha Reductase Inhibitor Start: 03-22-2021 take 1 tablet by mouth once daily Finasteride 5 mg tablet Active 5 MG PO Daily October 29, 2023 12:00am Complies with drug therapy guaiFENesin 400 mg oral tablet (12 sources) Start: 11-22-2020 take 1 tablet by mouth every four hours as needed for cough guaifenesin 400 mg oral tablet 400 mg = 1 tab(s), Oral, q4hr, PRN as needed for cough, Refills(s) 0 Start Date: 11/22/20 Status: Ordered Hydrophilic ointment (3 sources) Start: 08-04-2024 Hydrophilic ointment Active 1 APPLIC TOPICAL Three times daily as needed August 04, 2024 12:00am Complies with drug therapy Start: 08-04-2024 Hydrophilic oi ntment Active 1 APPLIC TOPICAL Three times daily as needed August 04, 2024 12:00am levETIRAcetam 500 mg oral tablet (18 sources) Start: 11-22-2020 take 1 tablet by mouth once daily Levetiracetam (Keppra) 500 mg tablet Active 500 MG PO Daily October 29, 2023 12:00am Complies with drug therapy levoFLOXacin 500 mg oral tablet (1 source) Quinolone Antimicrobial Start: 07-22-2023 take 1 tablet by mouth once daily Levaquin 500 mg Tab 500 mg = 1 tab(s), Oral, Daily, # 30 tab(s), Refills(s) 0, Pharmacy: [facility]/pharmacy #[id number], 179, cm, 07/22/23 14:27:00 EDT, Height/Length Dosing, 78.3, kg, 07/22/23 14:27:00 EDT, Weight Dosing Start Date: 07/22/23 Status: Ordered Lidocaine (12 sources) Antiarrhythmic, Amide Local Anesthetic Start: 11-26-2020 lidocaine 5% patch TransDermal, Daily, Refill(s) 0 Start Date: 11/26/20 Status: Ordered melatonin 3 mg oral capsule (18 sources) Start: 10-29-2023 take 3 capsules by mouth once daily at bedtime as needed Melatonin 3 mg capsule Active 9 MG PO Daily at bedtime as needed October 29, 2023 12:00am Complies with drug therapy Start: 10-29-2023 take 3 capsules by m outh once daily at bedtime as needed Melatonin [...] Status: Ordered montelukast 10 mg oral tablet (18 sources) Leukotriene Receptor Antagonist Start: 03-22-2021 take 1 tablet by mouth once daily Montelukast 10 mg tablet Active 10 MG PO Daily October 29, 2023 12:00am Complies with drug therapy mupirocin 0.02 mg/mg topical ointment (7 sources) RNA Synthetase Inhibitor Antibacterial Start: 11-22-2020 mupirocin Top 2% Oint See Instructions, Refill(s) 0, apply a thin film to leg scabs twice a day Start Date: 11/22/20 Status: Ordered olopatadine 1 mg/ml ophthalmic solution (1 source) Histamine-1 Receptor Inhibitor Start: 08-04-2024 Olopatadine 0.1 % drops Active 1 DROPS EYE-BOTH Twice daily August 04, 2024 12:00am separate doses by at least 6-8 hours Complies with drug therapy Olopatadine 0.1 % drops (2 sources) Start: 08-04-2024 Olopatadine 0.1 % drops Active 1 DROPS EYE-BOTH Twice daily August 04, 2024 12:00am separate doses by at least 6-8 hours pregabalin 75 mg oral capsule (6 sources) Start: 06-06-2024 take 1 capsule by mouth at bedtime Pregabalin 75 mg capsule Active 75 MG PO Daily at bedtime June 06, 2024 3:08pm Take 30-60 min prior to bedtime Complies with drug therapy Start: 04-28-2024 End: 06-06-2024 take 1 capsule [...] Status: Ordered sertraline 100 mg oral tablet (18 sources) Serotonin Reuptake Inhibitor Start: 10-29-2023 take 1 tablet by mouth twice daily Sertraline 100 mg tablet Active 100 MG PO Twice daily October 29, 2023 12:00am Complies with drug therapy Start: 07-09-2015 take 200 mg by mouth [...] Ordered vitamin b12 1 mg oral capsule (15 sources) Vitamin B12 Start: 08-04-2024 take 1 capsule by mouth once daily Cyanocobalamin (Vitamin B-12) 1,000 mcg capsule Active 1000 MCG PO Daily August 04, 2024 12:00am Complies with drug therapy Start: 11-22-2020 take 1 tablet by dorys [...] Sig (Original) gabapentin 300 mg oral capsule (20 sources) Anti-epileptic Agent Start: 12-14-2023 take 1 [...] Inguinal pain 07-22-2023 Episodic Acquired foot deformities (5 sources) Foot-drop; Translations: [Foot drop, right foot] 08-04-2024 Episodic Anxiety disorders (20 sources) Posttraumatic stress disorder; Translations: [Post-traumatic stress disorder, unspecified] 03-22-2021 Chronic Chronic obstructive pulmonary disease and bronchiectasis (19 sources) Chronic obstructive pulmonary disease, unspecified; Translations: [Pulmonary emphysema] Onset: 12-24-2020 03-22-2021 Chronic Disorders of lipid metabolism (6 sources) Hypercholesterolemia; Translations: [Pure hypercholesterolemia, unspecified] 10-29-2023 Chronic Essential hypertension (9 sources) Essential hypertension; Translations: [Essential (primary) hypertension] [...] Onset: 08-19-2021 Episodic Miscellaneous mental health disorders (6 sources) Psychophysiologic insomnia; Translations: [Psychophysiologic insomnia] 10-29-2023 Chronic Mood disorders (6 sources) Major depressive disorder; Translations: [Major depressive disorder, single episode, unspecified] 10-29-2023 Chronic Osteoarthritis (6 sources) Osteoarthritis of bilateral hip joints; Translations: [Bilateral primary osteoarthritis of hip] 08-04-2024 Chronic Other circulatory disease (4 sources) Hypotension, unspecified; Translations: [HYPOTENSION UNSPECIFIED] Onset: 12-19-2020 Episodic Other diseases of kidney and ureters (1 source) Urinary tract obstruction; Translations: [Other obstructive and reflux uropathy] Onset: 02-23-2024 Episodic Other hematologic conditions (6 sources) H/O: anemia - iron deficient; Translations: [...] Other hereditary and degenerative nervous system conditions (6 sources) Restless legs; Translations: [Restless legs syndrome] [...] prostatitis 08-31-2023 Episodic Other nervous system disorders (6 sources) Sleep-wake schedule disorder, delayed phase type; [...] Episodic Other nutritional; endocrine; and metabolic disorders (6 sources) Overweight in adulthood with body mass index of 25 or more but less than 30; Translations: [Body mass index (BMI) 25.0-25.9, adult] 10-29-2023 Episodic Other nutritional; endocrine; and metabolic disorders (5 sources) Body mass index (BMI) 25.0-25.9, adult; Translations: [Body Mass Index 25.0-25.9, adult] 10-29-2023 Episodic Residual codes; unclassified (6 sources) Obstructive sleep apnea syndrome; Translations: [Obstructive sleep apnea (adult) (pediatric)] 10-29-2023 Chronic Residual codes; unclassified (6 sources) Sleep apnea; Translations: [Sleep apnea, unspecified] 10-29-2023 Chronic Residual codes; unclassified (3 sources) Periodic limb movement disorder; Translations: [Periodic limb movement disorder] 10-29-2023 Chronic Residual codes; unclassified (6 sources) REM sleep behavior disorder; Translations: [REM [...] behavior disorder] 10-29-2023 Chronic Residual codes; unclassified (3 sources) Periodic leg movements of sleep ; Translations: [Periodic limb movement disorder] 10-29-2023 Chronic Residual codes; unclassified (1 source) Sleep apnea, unspecified; Translations: [Sleep apnea, unspecified] Onset: 10-15-2023 Chronic Spondylosis; intervertebral disc disorders; other back problems (5 sources) Backache; Translations: [Radiculopathy, site unspecified] 06-06-2024 [...] By: Michael Mullins on 08-04-2024 Study report [facility] [address] [place] [address] XRay Report Signed Patient: Robert Santos MR#: [id number] : 1945 Acct:[id number] Age/Sex: 78 / M ADM Date: 5 Loc: [facility] Room: Type: [facility] Attending Dr: Sreekanth Mark II, MD Copies to: Sreekanth Mark MD~ Ordering Provider: Sreekanth Mark MD Date of Service: 08/04/24 XR/XR hip BI w PEL1V: M25.551 - Pain in right hip 2 views both hips with single view pelvis plain film COMPARISON: None HISTORY: Bilateral hip pain for years. Worse on the right. Painful weightbearing ACUTE FINDINGS: None DEGENERATIVE CHANGE: Extensive ltvj-xq-rwks contact and degeneration of the right hip. Moderate joint space narrowing of the left hip. No AVN. SOFT TISSUE FINDINGS: Unremarkable JOINT EFFUSION: None POSTOP CHANGES: None BONY MINERALIZATION: Adequate XR/XR hip BI w PEL1V IMPRESSION: Extensive ghlj-oq-uzsm contact right hip degeneration. Extensive left hip degenerative change. Impression dictated by: Erickson Mullins M.D. 08/04/2024 5:34 PM Dictation Location: [place] [address] Transcribed By: [facility] 08/04/241733 Dictated By: Erickson Mullins DO 08/04/241732 Signed By: 08/04/241733 [facility] XR hip BI w [id number] 08-05-19 XR hip BI w PEL1V [facility] [address] [place] [address] XRay Report Signed Patient: Robert Santos MR#: [id number] : 1945 Acct:[id number] Age/Sex: 78 / M ADM Date: 08/04/24 Loc: [facility] Room: Type: [facility] Attending Dr: Sreekanth Mark II, MD Copies to: Sreekanth Mark MD Ordering Provider: rSeekanth Mark MD Date of Service: 08/04/24 XR/XR hip BI w PEL1V: M25.551 - Pain in right hip 2 views both hips with single view pelvis plain film COMPARISON: None HISTORY: Bilateral hip pain for years. Worse on the right. Painful weightbearing ACUTE FINDINGS: None DEGENERATIVE CHANGE: Extensive gtsc-wf-kixx contact and degeneration of the right hip. Moderate joint space narrowing of the left hip. No AVN. SOFT TISSUE FINDINGS: Unremarkable JOINT EFFUSION: None POSTOP CHANGES: None BONY MINERALIZATION: Adequate XR/XR hip BI w PEL1V IMPRESSION: Extensive qsem-ds-rdai contact right hip degeneration. Extensive left hip degenerative change. Impression dictated by: Erickson Mullins M.D. 08/04/2024 5:34 PM Dictation Location: [place] [address] Transcribed By: [facility] 08/04/241733 Dictated By: Erickson Mullins DO 08/04/241732 Signed By: 08/04/241733 Normal [facility] Ambulatory Visit Summaryon 1 Ambulatory Visit Summary Ambulatory Visit Summary ROBERT SANTOS :1945 Visit Date:03/01/2024 Ambulatory Visit Instructions Your Care Team Attending Physician - CHIRAG Narayanan APRN, Lashawn Frias Primary Care Physician - Gregoria Truong DO [...] ALEGRIA, Dov Duron Where: [facility] [address] [address]- Medications What How Much When Instructions Unchanged [...] you for choosing us for your care. Normal [facility] C Urineon 02-26-2024 Bacteria identified Cx Nom (U) Microbiology PROCEDURE: Urine Culture [R1] SOURCE: U Cath BODY SITE: COLLECTED DATE/TIME: 02/23/2024 10:28 EST RECEIVED DATE/TIME: 02/23/2024 15:23 EST START DATE/TIME: 02/23/2024 15:23 EST FREE TEXT SOURCE: cath CIC [employer]CH[employer], STRIP CLEANER-C, [employer], STRIP CLEANER-C, Lashawn X Lashawn X FINAL REPORTS Final [...] Locations R1: This test was performed at: [facility], [address] [place] [address], [id number]- , , [facility] Comment on above: Performed By: #### 2 [id number] #### [facility] [address] [place] [id number] Urology Office/Clinic Noteon 02-23-2024 Urology Office/Clinic Note [...] with voice recognition artificial intelligence software, specifically [employer], As Seen on TV and or [employer]. Substitutions may have occurred due to the [...] for 1 week for cath removal Ordered: 61971 Measure Post Void residual urine and/or bladder [...] Urnls Dip Stick Auto w/o Microscopy POC 17160 Urnls Dip Stick Auto w/o Microscopy POC 42660 Follow-up No qualifying data available Patient Education [...] Oral, On (more content not included)... Normal [facility] Comment on above: Result Comment: Elec tronically Signed By: CHIRAG Narayanan APRN, Lashawn Frias\.br\Date and Time Signed: 02/23/24 10:37 EST Ambulatory Visit Summaryon 1 Ambulatory Visit Summary Ambulatory Visit Summary SHIVANIROBERT HANSEN :1945 Visit Date:12/14/2023 Ambulatory Visit Instructions Your Diagnosis Urinary retention BPH with urinary obstruction Urge incontinence History of prostatitis Your Care Team Attending Physician - Dov [...] Dov MARTIN MD Where: [facility] [address] [facility] [place] [address]- You Need to Schedule the Following Appointments Follow Up with Dov MARTIN MD, URL When: Comments: 1 yr (no labs) Where: [facility] [address], [place] [address]- [phone] Medications What How Much When Instructions Unchanged [...] Constipation. ? (more content not included)... Normal [facility] Urology Office/Clinic Noteon 12-14-2023 Urology Office/Clinic [...] but steady stream when voiding on own. [place] Flomax worked well but unable to tolerate. [...] Duron, URL [facility] [address], [place] [address]- [phone] Additional Instructions: 1 yr (no labs) Patient [...] - [place] (more content not included)... Normal [facility] Comment on above: Result Comment: Elec tronically Signed By: MARTIN Dov ALEGRIA\.br\Date and Time Signed: 12/14/23 15:30 EDT\.br\Electronically Co-Signed By: Mai Sheppard\.br\Date and Time Co-Signed: 12/14/23 15:28 EDT Automated basophil %Ordered By: Coy Hylton on 10-29-2023 Basophils/100 WBC (Bld) 0.6 % Normal . [facility] Comment on above: Performed By: #### F E and TIBC, CBC, DALTON #### [address] Automated basophil countOrde red By: Coy Hylton on 10-29-2023 Basophils (Bld) [#/Vol] 0.1 10*3/uL Normal 0.0-0.2 [facility] Comment on above: Result Comment: PERF ORMED BY: [place] [address] PATHOLOGIST WIRE FRAME MAKER BLAKE MATHUR M.D. Performed By: #### F E and TIBC, CBC, DALTON #### [address] Automated blood monocyte cou ntOrdered By: Coy Hylton on 10-29-2023 Monocytes (Bld) [#/Vol] 0.7 10*3/uL Normal 0.0-0.8 [facility] Comment on above: Performed By: #### F E and TIBC, CBC, DALTON #### [address] Automated eosinophil %Ordere d By: Coy Hylton on 10-29-2023 Eosinophils/100 WBC (Bld) 3.3 % Normal . [facility] Comment on above: Performed By: #### F E and TIBC, CBC, DALTON #### [address] Automated eosinophil countOr dered By: Coy Hylton on 10-29-2023 Eosinophils (Bld) [#/Vol] 0.3 10*3/uL Normal 0.0-0.45 [facility] Comment on above: Performed By: #### F E and TIBC, CBC, DALTON #### [address] Automated monocyte %Ordered By: Coy Hylton on 10-29-2023 Monocytes/100 WBC (Bld) 7.2 % Normal . [facility] Comment on above: Performed By: #### F E and TIBC, CBC, DALTON #### [address] Automated neutrophil %Ordere d By: Coy Hylton on 10-29-2023 Neutrophils/100 WBC (Bld) 75.7 % Normal . [facility] Comment on above: Performed By: #### F E and TIBC, CBC, DALTON #### [address] Complete Blood Count Auto Di ffon 10-29-2023 Mean Corpuscular HGB Conc 33.8 g/dL Normal 32.5-35.6 [facility] Comment on above: Performed By: #### F E and TIBC, CBC, DALTON #### [address] NRBC% 0.1 /100{WBC} Normal 0-0.5 [facility] Comment on above: Performed By: #### F E and TIBC, CBC, DALTON #### [address] Erythrocyte distribution wid th [Ratio] by Automated countOrdered By: Coy Hylton on 10-29-2023 Erythrocyte distribution width (RBC) [Ratio] 14.4 % Normal 12.0-14.8 [facility] Comment on above: Performed By: #### F E and TIBC, CBC, DALTON #### [address] Erythrocytes [#/volume] in B lood by Automated countOrdered By: Coy Hylton on 10-29-2023 RBC (Bld) [#/Vol] 4.52 10*6/uL Normal 3.90-5.60 [facility] Comment on above: Performed By: #### F E and TIBC, CBC, DALTON #### [place] [id number] [place] Ferritin [Mass/volume] in Se rum or PlasmaOrdered By: Coy Hylton on 10-29-2023 Ferritin [Mass/Vol] 100.1 ng/mL Normal 23.9-336.2 [facility] Comment on above: Result Comment: PERF ORMED BY: [address] [place] [address] PATHOLOGIST [employer] MAKER BLAKE MATHUR M.D. Performed By: #### F E and TIBC, CBC, DALTON #### [address] Hematocrit [Volume Fraction] of Blood by Automated countOrdered By: Coy Hylton on 10-29-2023 Hematocrit (Bld) [Volume fraction] 41.0 % Normal 38.8-50.0 [facility] Comment on above: Performed By: #### F E and TIBC, CBC, DALTON #### [address] Hemoglobin [Mass/volume] in BloodOrdered By: Coy Hylton on 10-29-2023 Hemoglobin (Bld) [Mass/Vol] 13.9 g/dL Normal 13.0-17.0 [facility] Comment on above: Performed By: #### F E and TIBC, CBC, DALTON #### [address] Iron [Mass/volume] in Serum or PlasmaOrdered By: Coy Hylton on 10-29-2023 Iron [Mass/Vol] 132 ug/dL Normal 50-212 [facility] Comment on above: Performed By: #### F E and TIBC, CBC, DALTON #### [address] Iron and TIBC Profileon 10-01 % Iron Saturation 38.9 % Normal 20-50 [facility] Comment on above: Performed By: #### F E and TIBC, CBC, DALTON #### [address] Total Iron Binding Capacity 339 ug/dL Normal 255-450 [facility] Comment on above: Performed By: #### F E and TIBC, CBC, DALTON #### [facility] [address] Iron binding capacity [Mass/ volume] in Serum or PlasmaOrdered By: Coy Hylton on 10-29-2023 Iron binding capacity [Mass/Vol] 339 ug/dL 255-450 [facility] Iron saturation [Mass Fracti on] in Serum or PlasmaOrdered By: Coy Hylton on 10-29-2023 Iron saturation [Mass fraction] 38.9 % 20-50 [facility] Leukocytes [#/volume] correc diamond for nucleated erythrocytes in Blood by Automated counOrdered By: Coy Hylton on 10-29-2023 WBC corrected for nucl RBC Auto (Bld) [#/Vol] 10.1 10*3/uL 4.1-10.5 [facility] Leukocytes [#/volume] in Blo od by Automated countOrdered By: Coy Hylton on 10-29-2023 WBC (Bld) [#/Vol] 10.1 10*3/uL Normal 4.1-10.5 [facility] Comment on above: Performed By: #### F E and TIBC, CBC, DALTON #### [facility] [address] [place] [address] [place] Lymphocytes [#/volume] in Bl ood by Automated countOrdered By: Coy Hylton on 10-29-2023 Lymphocytes (Bld) [#/Vol] 1.3 10*3/uL Normal 1.00-4.8 [facility] Comment on above: Performed By: #### F E and TIBC, CBC, DALTON #### [facility] [address] [place] [address] [place] Lymphocytes/100 leukocytes i n Blood by Automated countOrdered By: Coy Hylton on 10-29-2023 Lymphocytes/100 WBC (Bld) 13.2 % Normal . [facility] Comment on above: Performed By: #### F E and TIBC, CBC, DALTON #### [facility] [address] [place] [address] [place] MCH [Entitic mass] by Automa diamond countOrdered By: Coy Hylton on 10-29-2023 MCH (RBC) [Entitic mass] 30.7 pg Normal 27.5-35.2 [facility] Comment on above: Performed By: #### F E and TIBC, CBC, DALTON #### [address] MCHC Auto (RBC) [Mass/Vol]Or dered By: Coy Hylton on 10-29-2023 MCHC (RBC) [Mass/Vol] 33.8 g/dL 32.5-35.6 [facility] MCV [Entitic volume] by Auto mated countOrdered By: Coy Hylton on 10-29-2023 MCV (RBC) [Entitic vol] 90.7 fL Normal 83.5-101 [facility] Comment on above: Performed By: #### F E and TIBC, CBC, DALTON #### [address] Neutrophils [#/volume] in Bl ood by Automated countOrdered By: Coy Hylton on 10-29-2023 Neutrophils (Bld) [#/Vol] 7.7 10*3/uL Normal 1.8-7.7 [facility] Comment on above: Performed By: #### F E and TIBC, CBC, DALTON #### [facility] [address] [place] [address] Nucleated erythrocytes [Pres ence] in Blood by Automated countOrdered By: Coy Hylton on 10-29-2023 Nucleated RBC Auto Ql (Bld) 0.1 /100{WBC} 0-0.5 [facility] Platelet mean volume [Entiti c volume] in Blood by Automated countOrdered By: Coy Hylton on 10-29-2023 Platelet mean volume (Bld) [Entitic vol] 9.5 fL Normal 6.6-10.1 [facility] Comment on above: Performed By: #### F E and TIBC, CBC, DALTON #### [address] Platelets [#/volume] in Bloo d by Automated countOrdered By: Coy Hylton on 10-29-2023 Platelets (Bld) [#/Vol] 173 10*3/uL Normal 150-450 [facility] Comment on above: Performed By: #### F E and TIBC, CBC, DALTON #### [facility] [address] [id number] [facility] Transferrin [Mass/volume] in Serum or PlasmaOrdered By: Coy Hylton on 10-29-2023 Transferrin [Mass/Vol] 242 mg/dL Normal 203-362 [facility] Comment on above: Performed By: #### F E and TIBC, CBC, DALTON #### [facility] [address] [id number] [facility] Ambulatory Visit Summaryon 0 08-31-2023 Ambulatory Visit [...] MARTIN MD Where: [facility] Urology Office/Clinic Noteon 08-31-2023 Urology Office/Clinic Note [...] [facility] [address], [place] [phone] Additional Instructions: 3 mos Patient Education Benign Prostatic Hyperplasia IMai, personally scribed for Dr. Martin on 08/31/2023 [...] mg, Oral, Once a day (at bedtime) [employer]ello [employer] inhalation aerosol, Inhalation, BID busPIRone 10 mg [...] virus vaccine, inactivated 12/19/2021 Recorded SARS-CoV-2 (COVID-19) [id number] 12/19/2021 Recorde (more content not included)... Normal [facility] Comment on above: Result Comment: Elec [...] ALEGRIA, Dov Duron Where: [facility] Ambulatory Visit Summary ROBERT SANTOS :1945 Visit [...] ALEGRIA, Dov Duron Where: [facility] Patient Educationon 07-22-19 Patient Education Infectious Disease [...] these instructions at home: Medicines ? Take [id number] and prescription medicines only as told by [...] Where to find more information ? National [place] of Diabetes and Digestive and Kidney Diseases: (more content not included)... Normal [facility] Urology Office/Clinic Noteon 07-22-2023 Urology Office/Clinic [...] of urine, unspecified) PVR (cc): 07/22/23 - No difficulty passing cath w recent pain reported in #1. Continues CIC once daily. Follow-up With When Contact Information NATALIA DANIEL, GREGORIA aShni, URL [address] [facility] [place] [address] Additional Instructions: Keep August appt Patient Education [...] PRN levetiracet (more content not included)... Normal [facility] Comment on above: Result Comment: Elec tronically Signed By: GREGORIA FISHER PA-C\.br\Date and Time Signed: 07/22/23 15:14 EDT\.br\Electronically Co-Signed By: Kalee Cortes\.br\Date and Time Co-Signed: 07/22/23 14:52 EDT Physician Orderon 07-16-2023 Physician Order [id number] Normal [facility] Retail - Clinical Noteon Retail - Clinical Note [id number] .[id number] Normal [facility] CBC AUTO DIFFon 12-19-2020 BASO # 0.1 103/ul Normal 0.0-0.1 [facility] Comment on above: Performed By: #### C BC #### [facility] [address] [place] [address] Dr. Julio Cesar Grijalva Basophils/100 WBC (Bld) 0.7 % Normal 0.2-2.0 [facility] Comment on above: Performed By: #### C BC #### [facility] [address] [place] [address] Dr. Julio Cesar Grijalva EO # 0.3 103/ul Normal 0.0-0.7 [facility] Comment on above: Performed By: #### C BC #### [facility] [address] [place] [address] Dr. Julio Cesar Grijalva Eosinophils/100 WBC (Bld) 3.4 % Normal 0.9-7.0 [facility] Comment on above: Performed By: #### C BC #### [facility] [address] [place] [address] Dr. Julio Cesar Grijalva Erythrocyte distribution width (RBC) [Ratio] 13.2 % Normal 11.0-15.0 [facility] Comment on above: Performed By: #### C BC #### [facility] [address] [address] [address] Julio Cesar Grijalva Hematocrit (Bld) [Volume fraction] 38.2 % Critically low 42.0-54.0 [facility] Comment on above: Performed By: #### C BC #### [facility] [address] [address] [address] Julio Cesar Grijalva Hemoglobin (Bld) [Mass/Vol] 12.4 g/dL Critically low 14.0-18.0 [facility] Comment on above: Performed By: #### C BC #### [facility] [address] [address] [address] Julio Cesar Grijalva IG # 0.02 10e3/ul Normal 0.00-0.03 [facility] Comment on above: Performed By: #### C BC #### [facility] [address] [place] [address] Dr. Julio Cesar Grijalva IG % 0.3 % Normal 0.0-0.5 [facility] Comment on above: Performed By: #### C BC #### [facility] [address] [place] [address] Dr. Julio Cesar Griajlva LYMPH # 1.1 103/ul Critically low 1.2-3.8 [facility] Comment on above: Performed By: #### C BC #### [facility] [address] [place] [address] Dr. Julio Cesar Grijalva Lymphocytes/100 WBC (Bld) 14.5 % Critically low 20.5-60.0 [facility] Comment on above: Performed By: #### C BC #### [facility] [address] [place] [address] Dr. Julio Cesar Grijalva MANUAL DIFF REQ NO Normal [facility] Comment on above: Performed By: #### C BC #### [facility] [address] [place] [address] Dr. Julio Cesar Grijalva MCH (RBC) [Entitic mass] 30.5 pg Normal 25.9-34.0 [facility] Comment on above: Performed By: #### C BC #### [facility] [address] [place] [address] Dr. Julio Cesar Grijalva MCHC (RBC) [Mass/Vol] 32.5 g/dL Normal 29.9-35.2 [facility] Comment on above: Performed By: #### C BC #### [facility] [address] [place] [address] Dr. Julio Cesar Grijalva MCV (RBC) [Entitic vol] 93.9 fL Normal 80.0-94.0 [facility] Comment on above: Performed By: #### C BC #### [facility] [address] [place] [address] Dr. Julio Cesar Grijalva MONO # 0.5 103/ul Normal 0.3-0.8 [facility] Comment on above: Performed By: #### C BC #### [facility] [address] [place] [address] Dr. Julio Cesar Grijalva Monocytes/100 WBC (Bld) 5.9 % Normal 1.7-12.0 [facility] Comment on above: Performed By: #### C BC #### [facility] [address] [place] [address] Dr. Julio Cesar Grijalva NEUT # 5.8 103/ul Normal 1.4-6.5 [facility] Comment on above: Performed By: #### C BC #### [facility] [address] [place] [address] Dr. Julio Cesar Grijalva Neutrophils/100 WBC (Bld) 75.2 % Critically high 43.0-75.0 [facility] Comment on above: Performed By: #### C BC #### [facility] [address] [place] [address] Dr. Julio Cesar Grjialva Platelet mean volume (Bld) [Entitic vol] 10.7 fL Normal 9.5-13.5 [facility] Comment on above: Performed By: #### C BC #### [facility] [address] [place] [address] Dr. Julio Cesar Grijalva PLT 237 103/ul Normal 150-450 [facility] Comment on above: Performed By: #### C BC #### [facility] [address] [place] [address] Dr. Julio Cesar Grijalva RBC 4.07 106/ul Critically low 4.70-6.10 [facility] Comment on above: Performed By: #### C BC #### [facility] [address] [place] [address] Dr. Julio Cesar Grijalva WBC 7.7 103/ul Normal 4.0-11.0 [facility] Comment on above: Performed By: #### C BC #### [facility] [address] [place] [address] Dr. Julio Cesar Grijalva PROF 14(COMP METB)on 021 Albumin [Mass/Vol] 2.9 g/dL Critically low 3.5-5.0 [facility] Comment on above: Performed By: #### C MP #### [facility] [address] [place] [address] Dr. Julio Cesar Grijalva Albumin/Globulin [Mass ratio] 0.8 {ratio} Normal [facility] Comment on above: Performed By: #### C MP #### [facility] [address] [place] [address] Dr. Julio Cesar Grijalva ALP [Catalytic activity/Vol] 121 U/L Normal 38-126 [facility] Comment on above: Performed By: #### C MP #### [facility] [address] [place] [address] Dr. Julio Cesar Grijalva ALT [Catalytic activity/Vol] 18 U/L Critically low 21-72 [facility] Comment on above: Performed By: #### C MP #### [facility] [address] [place] [address] Dr. Julio Cesar Grijalva Anion gap [Moles/Vol] 9.8 mmol/L Normal [facility] Comment on above: Performed By: #### C MP #### [facility] [address] [place] [address] Dr. Julio Cesar Grijalva AST [Catalytic activity/Vol] 17 U/L Normal 17-59 [facility] Comment on above: Performed By: #### C MP #### [facility] [address] [place] [address] Dr. Julio Cesar Grijalva Bilirubin [Mass/Vol] 0.4 mg/dL Normal 0.2-1.3 [facility] Comment on above: Performed By: #### C MP #### [facility] [address] [place] [address] Dr. Julio Cesar Grijalva Calcium [Mass/Vol] 8.5 mg/dL Normal 8.4-10.2 [facility] Comment on above: Performed By: #### C MP #### [facility] [address] [place] [address] Dr. Julio Cesar Grijalva Chloride [Moles/Vol] 102 mmol/L Normal 98-107 [facility] Comment on above: Performed By: #### C MP #### [facility] [address] [place] [address] Dr. Julio Cesar Grijalva CO2 [Moles/Vol] 29.0 mmol/L Normal 22.0-30.0 [facility] Comment on above: Performed By: #### C MP #### [facility] [address] [place] [address] Dr. Julio Cesar Grijalva Creatinine [Mass/Vol] 0.73 mg/dL Normal 0.66-1.25 [facility] Comment on above: Performed By: #### C MP #### [facility] [address] [place] [address] Dr. Julio Cesar Grijalva EGFR-AF MAURITANIAN >60 Normal >=60 [facility] Comment on above: Performed By: #### C MP #### [facility] [address] [place] [address] Dr. Julio Cesar Grijalva EGFR-NON AF MAURITANIAN >60 Normal >=60 [facility] Comment on above: Performed By: #### C MP #### [facility] [address] [place] [address] Dr. Julio Cesar Grijalva Globulin (S) [Mass/Vol] 3.6 g/dL Normal [facility] Comment on above: Performed By: #### C MP #### [facility] [address] [place] [address] Dr. Julio Cesar Grijalva Glucose [Mass/Vol] 122 mg/dL Critically high 74-106 [facility] Comment on above: Performed By: #### C MP #### [facility] [address] [address] [address] Julio Cesar Grijalva Potassium [Moles/Vol] 3.8 mmol/L Normal 3.4-5.0 [facility] Comment on above: Performed By: #### C MP #### [facility] [address] [address] [address] Julio Cesar Grijalva Protein [Mass/Vol] 6.5 g/dL Normal 6.1-8.2 [facility] Comment on above: Performed By: #### C MP #### [facility] [address] [address] [address] Julio Cesar Grijalva Sodium [Moles/Vol] 137 mmol/L Normal 137-145 [facility] Comment on above: Performed By: #### C MP #### [facility] [address] [address] [address] Julio Cesar Grijalva Urea nitrogen [Mass/Vol] 10.0 mg/dL Normal 9.0-20.0 [facility] Comment on above: Performed By: #### C MP #### [facility] [address] [address] [address] Julio Cesar Grijalva Urea nitrogen/Creatinine [Mass ratio] 13.7 mg/mg Normal [facility] Comment on above: Performed By: #### C MP #### [facility] [address] [address] [address] Julio Cesar Grijalva Vital Signs Date Time Vital Sign Value Performing Clinician Facility 11-16-2024 13:18-0400 Diastolic blood pressure 60 mm[Hg] Gregoria Truong MD Work Phone: [facility] 11-16-2024 13:18-0400 Systolic blood pressure 100 mm[Hg] Gregoria Truong MD Work Phone: [facility] 08-04-2024 14:32-0400 Body height 180.34 cm Gregoria Truong MD Work Phone: [facility] 08-04-2024 14:32-0400 Body mass index (BMI) [Ratio] 25 kg/m2 Gregoria Truong MD Work Phone: [facility] 08-04-2024 14:32-0400 Body weight 81.19 kg Gregoria Truong MD Work Phone: [facility] 06-06-2024 13:52-0400 Body height 180.34 cm Gregoria Truong MD Work Phone: [facility] 06-06-2024 13:52-0400 Body mass index (BMI) [Ratio] 24.8 kg/m2 Gregoria Truong MD Work Phone: [facility] 06-06-2024 13:52-0400 Body weight 80.9 kg Gregoria Truong MD Work Phone: [facility] 06-06-2024 13:52-0400 Diastolic blood pressure 50 mm[Hg] Gregoria Truong MD Work Phone: [facility] 06-06-2024 13:52-0400 Heart rate 86 /min Gregoria Truong MD Work Phone: [facility] 06-06-2024 13:52-0400 SaO2% (BldA) [Mass fraction] 94 % Gregoria Truong MD Work Phone: [facility] 06-06-2024 13:52-0400 Systolic blood pressure 94 mm[Hg] Gregoria Truong MD Work Phone: [facility] 04-28-2024 14:17-0500 Body height 179.07 cm [facility] 04-28-2024 14:17-0500 Body mass index (BMI) [Ratio] 25.4 kg/m2 [facility] 04-28-2024 14:17-0500 Body weight 81.64 kg [facility] 04-28-2024 14:17-0500 Diastolic blood pressure 52 mm[Hg] [facility] 04-28-2024 14:17-0500 Heart rate 80 /min [facility] 04-28-2024 14:17-0500 SaO2% (BldA) [Mass fraction] 94 % [facility] 04-28-2024 14:17-0500 Systolic blood pressure 99 mm[Hg] [facility] 02-23-2024 10:04-0500 Blood Pressure Location Lashawn Orzech [facility] 02-23-2024 10:04-0500 Diastolic blood pressure 71 mm[Hg] Lashawn Orzech [facility] 02-23-2024 10:04-0500 Heart rate 73 /min Lashawn Orzech [facility] 02-23-2024 10:04-0500 Systolic blood pressure 98 mm[Hg] Lashawn Orzech [facility] 12-14-2023 13:57-0400 Blood Pressure Location Dov MARTIN [facility] 12-14-2023 13:57-0400 Diastolic blood pressure 62 mm[Hg] Dov MARTIN [facility] 12-14-2023 13:57-0400 Heart rate 82 /min Dov MARTIN [facility] 12-14-2023 13:57-0400 Systolic blood pressure 118 mm[Hg] Dov MARTIN [facility] 10-29-2023 13:12-0400 Body height 179.07 cm MD Gregoria Truong Work Phone: [facility] 10-29-2023 13:12-0400 Body mass index (BMI) [Ratio] 25.4 kg/m2 MD Gregoria Truong Work Phone: [facility] 10-29-2023 13:12-0400 Body weight 81.64 kg MD Gregoria Truong Work Phone: [facility] 10-29-2023 13:12-0400 Diastolic blood pressure 65 mm[Hg] MD Gregoria Truong Work Phone: [facility] 10-29-2023 13:12-0400 Heart rate 79 /min MD Gregoria Truong Work Phone: [facility] 10-29-2023 13:12-0400 SaO2% (BldA) [Mass fraction] 96 % MD Gregoria Truong Work Phone: [facility] 10-29-2023 13:12-0400 Systolic blood pressure 103 mm[Hg] MD Gregoria Truong Work Phone: [facility] 08-31-2023 13:16-0400 Blood Pressure Location Dov MARTIN [facility] 08-31-2023 13:16-0400 Body temperature 98.6 [degF] Dov MARTIN [facility] 08-31-2023 13:16-0400 Diastolic blood pressure 67 mm[Hg] Dov MARTIN [facility] 08-31-2023 13:16-0400 Heart rate 62 /min Dov MARTIN [facility] 08-31-2023 13:16-0400 Respiratory rate 16 /min Dov MARTIN [facility] 08-31-2023 13:16-0400 Systolic blood pressure 105 mm[Hg] Dov MARTIN [facility] 07-22-2023 14:19-0400 Blood Pressure Location GREGORIA FISHER [facility] 07-22-2023 14:19-0400 Body temperature 97.88 [degF] GREGORIA FISHER [facility] 07-22-2023 14:19-0400 Diastolic blood pressure 61 mm[Hg] GREGORIA FISHER [facility] 07-22-2023 14:19-0400 Heart rate 75 /min GREGORIA FISHER [facility] 07-22-2023 14:19-0400 Systolic blood pressure 110 mm[Hg] GREGORIA FISHER [facility] 12-15-2022 14:00-0400 Blood Pressure Location Dov MARTIN [facility] 12-15-2022 14:00-0400 Diastolic blood pressure 79 mm[Hg] Dov MARTIN [facility] 12-15-2022 14:00-0400 Heart rate 68 /min Dov MARTIN [facility] 12-15-2022 14:00-0400 Respiratory rate 16 /min Dov MARTIN [facility] 12-15-2022 14:00-0400 Systolic blood pressure 128 mm[Hg] Dov MARTIN [facility] 08-18-2022 14:47-0400 Blood Pressure Location Dov MARTIN [facility] 08-18-2022 14:47-0400 Diastolic blood pressure 65 mm[Hg] Dov MARTIN [facility] 08-18-2022 14:47-0400 Heart rate 65 /min Dov MARTIN [facility] 08-18-2022 14:47-0400 Respiratory rate 16 /min Dov MARTIN [facility] 08-18-2022 14:47-0400 Systolic blood pressure 105 mm[Hg] Dov MARTIN [facility] 08-19-2021 12:06-0400 Blood Pressure Location Dov MARTIN [facility] 08-19-2021 12:06-0400 Diastolic blood pressure 66 mm[Hg] Dov MARTIN [facility] 08-19-2021 12:06-0400 Heart rate 78 /min Dov MARTIN [facility] 08-19-2021 12:06-0400 Respiratory rate 16 /min Dov MARTIN [facility] 08-19-2021 12:06-0400 Systolic blood pressure 111 mm[Hg] Dov MARTIN [facility] Encounters Encounter Date Encounter Type Care Provider Facility Start: 11-16-2024 End: 11-16-2024 ambulatory Gregoria Truong MD Work Phone: [facility] Work Phone: Start: 11-16-2024 End: 11-16-2024 Patient encounter procedure Sreekanth Osorio MD -[facility] Work Phone: Start: 08-04-2024 End: 08-04-2024 ambulatory Gregoria Truong MD Work Phone: [facility] Work Phone: Start: 08-04-2024 End: 08-04-2024 Patient encounter procedure Gregoria Truong MD Work Phone: [facility] Work Phone: Start: 08-04-2024 End: 08-04-2024 Patient encounter procedure Gregoria Truong MD Work Phone: [facility] Start: 08-04-2024 End: 08-04-2024 ambulatory Gregoria Truong MD Work Phone: [facility] Work Phone: Start: 06-06-2024 End: 06-06-2024 Patient encounter procedure Gregoria Truong MD Work Phone: [facility] Work Phone: Start: 04-28-2024 End: 04-28-2024 ambulatory [facility] Work Phone: Start: 04-28-2024 End: 04-28-2024 Patient encounter procedure [facility] Work Phone: Start: 03-01-2024 End: 03-01-2024 ambulatory Lashawn X Orzech Facility:[facility] Start: 03-01-2024 End: 03-01-2024 Patient encounter procedure Lashawn X Orzech [facility] Start: 02-23-2024 End: 02-23-2024 ambulatory Lashawn X Orzech Facility:[facility] Start: 02-23-2024 End: 02-23-2024 Lab Drop off Lashawn X Orzech [facility] Start: 02-23-2024 End: 02-23-2024 ambulatory Lashawn X Orzech Facility:[facility] Start: 02-23-2024 End: 02-23-2024 Patient encounter procedure Lashawn X Orzech [facility] Start: 12-14-2023 End: 12-14-2023 ambulatory Dov MARTIN Facility:[facility] Start: 12-14-2023 End: 12-14-2023 Patient encounter procedure Dov MARTIN [facility] Start: 10-29-2023 Non-patient / Non-visit MD Jacinta Truong Work Phone: [facility] Work Phone: Start: 10-29-2023 End: 10-29-2023 Patient encounter procedure MD Gregoria Truong Work Phone: [facility] [place] Work Phone: Start: 10-29-2023 End: 10-29-2023 ambulatory MD Gregoria Truong Work Phone: [facility] Work Phone: Start: 10-29-2023 End: 10-29-2023 ambulatory MD Gregoria Truong Work Phone: [facility] Work Phone: Start: 10-29-2023 End: 10-29-2023 Patient encounter procedure MD Gregoria Truong Work Phone: [facility] Work Phone: Start: 10-15-2023 End: 10-15-2023 Patient encounter procedure MD Gregoria Truong Work Phone: [facility] Work Phone: Start: 10-15-2023 End: 10-15-2023 ambulatory MD Gregoria Truong Work Phone: [facility] Work Phone: Start: 08-31-2023 End: 08-31-2023 ambulatory Dov MARTIN Facility:[facility] Start: 08-31-2023 End: 08-31-2023 Patient encounter procedure Dov MARTIN [facility] Start: 07-22-2023 End: 07-22-2023 ambulatory GREGORIA E NATALIA Facility:[facility] Start: 07-22-2023 End: 07-22-2023 Patient encounter procedure GREGORIA E NATALIA [facility] Start: 07-16-2023 End: 07-16-2023 ambulatory GREGORIA E NATALIA Facility:[facility] Start: 07-16-2023 End: 07-16-2023 Patient encounter procedure GREGORIA E NATALIA [facility] [place] Start: 06-29-2023 End: 06-29-2023 ambulatory Dov MARTIN Facility:[facility] Start: 06-29-2023 End: 06-29-2023 Patient encounter procedure Dov MARTIN [facility] Start: 03-12-2023 End: 03-12-2023 ambulatory GREGORIA TRUONG Not Available Start: 12-15-2022 End: 12-15-2022 Patient encounter procedure Dov MARTIN [facility] Start: 08-18-2022 End: 08-18-2022 Patient encounter procedure Dov MARTIN [facility] Start: 02-17-2022 End: 02-17-2022 Patient encounter procedure Dov MARTIN [facility] Start: 08-19-2021 End: 08-19-2021 Patient encounter procedure Dov MARTIN [facility] Start: 12-19-2020 End: 12-19-[address] DOCTOR [...] Activity Detail Author Start: 12-19-2024 ambulatory Ambulatory Facility:[facility] Start: 08-04-2024 Plain x-ray of pelvi s and lower extremity XR hip BI w PEL1V [facility] Start: 08-04-2024 XR Pelvis and Hip - bilateral Views [facility] Hemoglobin [Mass/vol ume] in Blood [facility] Immunizations Immunization Date Immunization Notes Care Provider Vesta willoughby 12-19-2021 influenza virus vacc ine, unspecified formulation Dov MARTIN [facility] 12-19-2021 SARS-CoV-2 (COVID-19 ) [id number] Dov MARTIN [facility] 01-03-2021 influenza virus vacc ine, unspecified formulation Dov MARTIN [facility] 01-03-2021 SARS-CoV-2 (COVID-19 ) mRNA BNT-162b2 vax Dov MARTIN [facility] 05-29-2020 SARS-CoV-2 (COVID-19 ) mRNA BNT-162b2 vax Dov MARTIN [facility] 05-07-2020 SARS-CoV-2 (COVID-19 ) mRNA BNT-162b2 vax Dov MARTIN [facility] 12-15-2018 influenza virus vacc ine, unspecified formulation Dov MARTIN [facility] 11-19-2017 influenza virus vacc ine, unspecified formulation Dov MARTIN [facility] 07-09-2017 tetanus toxoid, redu pancho diphtheria toxoid, and acellular pertussis vaccine, adsorbed Dov MARTIN [facility] 11-11-2016 influenza virus vacc ine, unspecified formulation Dov MARTIN [facility] 11-30-2014 pneumococcal conjuga te vaccine, 13 valent Dov MARTIN [facility] 11-01-2012 pneumococcal polysaccharide vaccine, 23 valent Dov MARTIN [facility] Payers Date Payer Category Payer Unknown [id number] 2022 Unknown [id number] 1960 Medicare [id number] 1960 Self-pay 1945 Unknown [id number] 2.16.84 [id number] 1944 Unknown [id number] 2.16.84 0.1.008373.3.579.2.1259 1944 Unknown [id number] 2.16.8 40.1.379088.3.579.2.727 1944 Unknown [id number] 2.16.8 40.1.131710.3.579.2.727 1944 Unknown [id number] 2.16.8 40.1.517777.3.579.2.727 1944 Unknown [id number] 2.16.8 40.1.881976.3.579.2.727 1944 Unknown [id number] 2.16.8 40.1.410383.3.579.2.727 1944 Unknown [id number] 2.16.8 40.1.840151.3.579.2.727 1944 Unknown [id number] 2.16.8 40.1.983694.3.579.2.727 1944 Unknown [id number] 2.16.8 40.1.588954.3.579.2.727 1944 Unknown [id number] 2.16.8 40.1.595359.3.579.2.727 Medicare Medicare [id number] Unknown [id number] 2.16.84 0.1.939599.3.579.2.593 Unknown [id number] 2.16.84 0.1.782693.3.579.2.593 Unknown [facility] Health Claims [id number] Unknown [id number] 2.16.8 40.1.998313.3.579.2.531 Unknown [id number] 2.16.8 40.1.270061.3.579.2.531 Unknown [id number] 2.16.8 40.1.965066.3.579.2.531 Social History Date Type Detail Facility Start: 08-19-2021 End: 02-23-2024 Tobacco smoking status Ex-smoker (finding) [facility] Sex Assigned At Male [facility] Tobacco smoking status Never [facility] Start: 1945 Sex Assigned At Male F [facility] ever [facility] Work Phone: Start: 04-28-2024 End: 2024 Sex Male (finding) [facility] Functional Status Date Assessment Result Facility 02-23-2024 Functional Status N/A [facility] 10-14-2024 Functional Status N/A [facility] [place] 08-31-2023 Functional Status N/A [facility] 07-22-2023 Functional Status N/A [facility] 12-15-2022 Functional Status N/A [facility] 08-18-2022 Functional Status N/A [facility] 02-17-2022 Functional Status N/A [facility] 08-19-2021 Functional Status N/A [facility] Clinical Notes 08-19-2021 to 06-06-2024 Note Date & Type Note Facility 06-06-2024 Evaluation note Diagnosis Onset Date Resolution Back pain with radiculopathy acute June 06, 2024 1:40pm BMI 25.0-25.9,adult acute June 06, 2024 1:40pm History of iron deficiency anemia acute June 06 1:40pm Obstructive sleep apnea acute A 2024 1:40pm PLMD (periodic limb movement disorder) acute June 06 1:40pm PTSD (post-traumatic stress disorder) acute June 06, 2024 1:40pm REM behavioral disorder acute A 2024 1:40pm Restless leg syndrome acute Apr 2024 1:40pm Sleep phase syndrome, delayed acute June 06, 2024 1:40pm Primary osteoarthritis of hips, bilateral acute August 04 2:17pm Right foot drop acute August 04, 2024 2:17pm [facility] Work Phone: [phone] 528-477712-24-2024 Hospital Discharge instructions Patient Education 02/23/2024 10:37:25 [...] Follow these instructions at home: Medicines Take bizd-ztd-wvqwsqm and prescription medicines only as told by [...] provider. Document Revised: 11/07/2020 Document Reviewed: 11/07/2020 [employer] Patient Education 2023 [employer]. 02/23/2024 10:37:24 Benign Prostatic Hyperplasia Benign Prostatic [...] urethra. Follow these instructions at home: Take qmfq-dmg-enzuglo and prescription medicines only as told by [...] provider. Document Revised: 09/04/2021 Document Reviewed: 09/04/2021 [employer] Patient Education 2023 [employer]. [facility] 12-24-2024 NotePatient Education Urology Acute Urinary [...] these instructions at home: Medicines ??? Take jgpt-iks-iorrihg and prescription medicines only as told by [...] provider. Document Revised: 11/07/2020 Document Reviewed: 11/07/2020 [employer] Patient Education ? 2023 [employer]. Benign Prostatic Hyperplasia Benign prostatic hyperplasia (BPH) is an enlarged prostate gland that is caused by the normal agingproc (more content not included)...[facility]10-14-2024 Hospital Discharge instructions Patient Education 12/14/2023 [...] nerve stimulation). ?For women, using a medical numerical control operator to prevent urine leaks. This is a [...] right after experiencing incontinence. General instructions Take ppjj-nwo-fuqkekh and prescription medicines only as told by [...] important. Where to find more information [place] of Diabetes and Digestive and Kidney Diseases: www.niddk.nih.gov [employer]: www.urologyhealth.org Contact a health care [...] provider. Document Revised: 09/21/2020 Document Reviewed: 09/21/2020 [employer] Patient Education 2023 [employer]. Follow Up Care 08/31/2023 14:32:35 With:JOHNATHAN ALEGRIA, Dov Duron, URL Address: [facility] [address], [place] [address]- [phone] When: Unknown Comments:1 yr (no labs) [facility] [place] 10-14-2024 NotePatient Education Urology Urinary Incontinence [...] stimulation). ? For women, using a medical numerical control operator to prevent urine leaks. This is a [...] that can protect the (more content not included)...[facility]07-01-2024 Hospital Discharge instructions Patient Education 08/31/2023 [...] urethra. Follow these instructions at home: Take siek-pre-oujzdak and prescription medicines only as told by [...] provider. Document Revised: 09/04/2021 Document Reviewed: 09/04/2021 [employer] Patient Education 2022 [employer]Web. Follow Up Care 06/30/2023 10:20:51 With:JOHNATHAN ALEGRIA, Dov Duron, URL Address: [facility] [address] [place] [address]- [phone] When: Unknown [facility] [place] 07-01-2024 NotePatient Education Urology Benign Prostatic [...] Follow these instructions at home: ? Take ucme-cvi-bbvmwge and prescription medicines only as told by [...] You develop side effec (more content not included)...[facility]05-22-2024 Hospital Discharge instructions Patient Education 07/22/2023 [...] Follow these instructions at home: Medicines Take quor-ugz-bziojzk and prescription medicines only as told by [...] important. Where to find more information [place] of Diabetes and Digestive and Kidney Diseases: [...] depends on the type of prostatitis. Take wmbn-jhf-omkiafm and prescription medicines only as told by [...] provider. Document Revised: 03/23/2020 Document Reviewed: 03/23/2020 [employer] Patient Education 2022 [employer]. Follow Up Care 07/21/2023 16:51:23 With:GREGORIA FISHER PA-C, URL Address: [address] [place] [address] When: Unknown [facility] 10-16-2023 Hospital Discharge instructions Follow Up Care 12/15/2022 15:00:39 With:JOHNATHAN ALEGRIA, Dov Duron, URL Address: [facility] [address] [place] [address] [phone] When: Unknown [facility] 10-16-2023 Hospital Discharge instructions Patient Education [...] and water are not available, use hand music executive. 2.Clean your penis with soap and water. [...] reusable catheter in a small bathroom. Take lkvf-iwu-ytcmyjl and prescription medicines only as told by [...] provider. Document Revised: 12/23/2021 Document Reviewed: 12/23/2021 [employer] Patient Education 2022 [employer]Web. Follow Up Care 08/18/2022 15:53:30 With:JOHNATHAN ALEGRIA, DONAL Joshau Address: [facility] [address], [place] [address]- When:Within 6 Month(s) [facility] [place] 06-19-2023 Hospital Discharge instructions Patient Education [...] urethra. Follow these instructions at home: Take dfls-gyp-gcgbzjv and prescription medicines only as told by [...] provider. Document Revised: 09/04/2021 Document Reviewed: 09/04/2021 [employer] Patient Education 2022 [employer]. Follow Up Care 02/17/2022 13:56:55 With:JOHNATHAN ALEGRIA, Dov Duron, URL Address: [facility] [address] , [place] [address]- When: Unknown [facility] 12-19-2022 Hospital Discharge instructions Patient Education [...] urethra. Follow these instructions at home: Take ffaj-xak-cptyaxs and prescription medicines only as told by [...] 02/16/2006 Document Revised: 01/11/2019 Document Reviewed: 03/23/2017 [employer] Patient Education Queue-it Follow Up Care 08/19/2021 12:49:49 With:JOHNATHAN ALEGRIA, Dov Duron, URL Address: [facility] [address] [place] [address]- When: Unknown [facility] 06-20-2022 Hospital Discharge instructions Patient Education 08/19/2021 12:24:35 Acute Urinary Retention, Male, Wyvm-hy-Eanr Acute Urinary Retention, Male Acute urinary retention means that you cannot pee (urinate) at all, or that you pee too little and your bladder is not emptied completely. If it is not treated, it can lead to kidney damage or other serious problems. Follow these instructions at home: Take rdix-atg-mzvvnlj and prescription medicines only as told by [...] 08/04/2008 Document Revised: 05/05/2019 Document Reviewed: 03/20/2017 [employer] Patient Education 2020 [employer] Follow Up Care 05/13/2021 12:38:46 With:Dov MARTIN MD, URL Address: [facility] [address] [place] [address]- [phone] When:02/18/2022 [facility] evaluation + Plan note Future Appointments Appointment Date:02/17/2022 11:30:00 AM Scheduled Provider:Dov MARTIN MD Location:[facility] Appointment Type:URO Office Visit [facility] evaluation + Plan note Future Appointments Appointment Date:08/18/2022 02:15:00 PM Scheduled Provider:Dov MARTIN MD Location:[facility] Appointment Type:URO Office Visit [facility] evaluation + Plan note Future Appointments Appointment Date:12/15/2022 01:45:00 PM Scheduled Provider:Dov MARTIN MD Location:[facility] Appointment Type:URO Office Visit [facility] evaluation + Plan note Future Appointments Appointment Date:06/29/2023 12:45:00 PM Scheduled Provider:Dov MARTIN MD Location:[facility] Appointment Type:URO Office Visit [facility] evaluation + Plan note Future Appointments Appointment Date:08/31/2023 01:15:00 PM Scheduled Provider:Dov MARTIN MD Location:[facility] Appointment Type:URO Office Visit [facility] evaluation + Plan note Future Appointments Appointment Date:12/14/2023 01:45:00 PM Scheduled Provider:Dov MARTIN MD Location:[facility] Appointment Type:URO Office Visit [facility] evaluation + Plan note Future Appointments Appointment Date:12/19/2024 01:45:00 PM Scheduled Provider:Dov MARTIN MD Location:[facility] Appointment Type:URO Office Visit [facility] evaluation + Plan note Future Appointments Appointment Date:03/01/2024 11:00:00 AM Scheduled Provider: Location:[facility] Appointment Type:URO Nurse Visit Appointment Date:12/19/2024 01:45:00 PM Scheduled Provider:Dov MARTIN [facility] Type:URO Office Visit [facility] evaluation + Plan note Future Appointments Appointment Date:03/01/2024 11:00:00 AM Scheduled Provider: Location:[facility] Appointment Type:URO Nurse Visit Appointment Date:12/19/2024 01:45:00 PM Scheduled Provider:Dov MARTIN MD Location:[facility] Appointment Type:URO Office Visit Diagnostic Tests Pending * Urine Culture 02/23/24 [facility] Evaluation noteNo assessment information available [facility] Work Phone: Evaluation note* Diagnosis Onset Date Resolution Status BMI 25.0-25.9,adult acute Essential hypertension acute History of iron deficiency anemia acute Obstructive sleep apnea acut e PLMD (periodic limb movement disorder) acute PTSD (post-traumatic stress disorder) acute REM behavioral disorder acut e Restless leg syndrome acute Sleep phase syndrome, delayed acute [facility] Work Phone: Evaluation note* Diagnosis Onset Date [...] syndrome, delayed acute April 28, 2024 1:56pm [facility] Work Phone: Evaluation note* Diagnosis Onset Date Resolution Status Admit Date Primary osteoarthritis of hi ps, bilateral acute November 16, 2024 12:44pm [facility] Work Phone: Hospital course Narrative No data available for this section [facility] Hospital Discharge instructions No data available for this section [facility] progress note No data available for this section [facility] reason for referral (narrative)No reason for referral [facility]: Summary Purpose Family History No Family History [...] Time Advance Directives No June 06 2:38pm Advance Directive Response Recorded Date/ Time Advance Directives No September 05 11:24am Chief Complaint and Reason for Visit Chief [...] ry 2024 1:56pm Obstructive sleep apnea April 28 025 1:56pm PLMD (periodic limb movement disorder) F ebruary 2024 1:56pm PTSD (post-traumatic stress disorder) Fe bruary 2024 1:56pm REM behavioral disorder April 28 1:56pm Restless leg syndrome April 28 1:56pm [...] foot drop August 04, 2024 2:17p m Chief Complaint Admit Date OP SP NETTA HIP PAIN November 16, 2024 12:44pm Reason for Visit Admit Date Primary osteoarthritis of hips, bilatera l November 16, 2024 12:44pm Additional Source Comments (unrecognized sect ion and content) No Status Records FoundNo Status Records FoundNo Status Records FoundNo Status Records FoundNo Status Records FoundNo Status Records Found INFORMATION SOURCE (unrecogn ized section and content) DATE CREATED AUTHOR 01/05/2021 [facility] DATE CREATED AUTHOR AUTHOR'S ORGANIZ ATION 03/14/2023 [facility] DATE CREATED AUTHOR AUTHOR'S ORGANIZ ATION 02/27/2024 [facility] DATE CREATED AUTHOR AUTHOR'S ORGANIZ ATION 03/02/2024 [facility] DATE CREATED AUTHOR AUTHOR'S ORGANIZ ATION 03/03/2024 [facility] DATE CREATED AUTHOR AUTHOR'S ORGANIZ ATION 09/12/2024 [facility] Care Team (unrecognized sect ion [...] Active Member Role Status Dates Moon Pittman (Clinic) , DO [facility] Primary Care Provider Active Start: September Coy Hylton MD Attending Provider Active S tart: October 29, 2023 Team Status: Inactive Member Role Status Dates Moon Pittman (Clinic) , DO [facility] Primary Care Provider Active Start: September [...] 2024 End: June 06, 2024 Annie Francis NP Attending Provider Active Start: June 06, 2024 [...] August 04, 2024 End: August 04, 2024 Team Status: Inactive Member Role Status Dates Gregoria Truong MD Primary Care Provider Active Start: November 16, 2024 End: November 16, 2024 Sreekanth Mark II, MD Attending Provider Active Start: November 16, 2024 End: November 16, 2024 Goals (unrecognized section and content) Goals [...] BE BASED ON THE PRIMARY CLINICAL RECORDS. [employer] provides no warranty or guarantee of the accuracy or completeness of information in this document.
[2024-11-18 15:05] LABS: Albumin Level 3.3 g/dL (3.4-5.0)
[2024-11-18 15:07] LABS: Hemoglobin 12.6 g/dL (14.0-18.0)
== END 2024-11-18 13:45 | disposition home or self-care (01) ==
PROVIDERS: Visit Provider Orthopaedic Surgery
DX: M81.0 Age-related osteoporosis without current pathological fracture (principal); Z79.899 Other long term (current) drug therapy
CPT/HCPCS: 36415; 80323; 82042; 82306; 83036; 85018; 87081